=== PATIENT | female | born 1950 | race Caucasian/White ===

== ENCOUNTER 2017-12-29 18:36 | Emergency (ER) | payer MEDICARE, MEDICAID, SELFPAY ==
[2017-12-29 18:39] VITALS: BP 135/71; PULSE 85; RESP 16; TEMP 37.2; O2SAT 94; BMI 27.4
--- NOTE | 2017-12-29 19:10 | RAD_ITS ---
STUDY: X-RAY - RIGHT KNEE REASON FOR EXAM: Female, 67 years old. Pain. Fall. TECHNIQUE: 2 view(s) of the knee. COMPARISON: None. FINDINGS: Comminuted moderately distracted fractures through the mid patella. No other fractures or dislocations. Anterior soft tissue swelling and probable small effusion. RAD/Knee 1 or 2 Views IMPRESSION: Limited 2 view study of the right knee shows a comminuted distracted fracture through the mid patella. Electronically Signed: Tariq Burk MD at 19:36 EDT , Service support ,
--- NOTE | 2017-12-29 19:38 | ED.VISSUMM ---
- ER Visit Summary Date of Service: 12/29/17 Chief Complaint: Right knee injury History of Present Illness: The patient is a 67 F resents to the emergency department with injury to the right knee. Patient states that she was walking her room today. She slipped on a mattress cover. She fell landing directly on her right knee on hard ground. She was unable to stand and bear weight. Her neighbor helped her and actually brought her here. The patient does have a history of diabetes and neuropathy. She does not use a cane or walker. She did not strike her head. She denies any other injury. Physical Examination: Relatively unremarkable. Patient does have hematoma of the right knee. She is unable to extend. The skin is intact. Her pulses are normal. No cords. No evidence of other injury. Test Results: [] Emergency Department Course and Treatment: Tong films were obtained of the knee. The patient does have a comminuted patellar fracture. It is closed. The patient was placed in a knee immobilizer. She will be given crutches and be nonweightbearing. I did discuss the patient with Dr. Webster for follow-up. She will be seen in the office this week. The patient will be given a short course of analgesics. She will follow-up with orthopedics as she is likely going to need operative fixation. The patient is comfortable with this plan of care. Treatment Plan: [] Disposition: Discharge Impression: 1. Closed right comminuted patellar fracture This note was generated with Get-n-[employer] dictation software. It may contain incorrect words, spelling, and punctuation that were not noted in review of the chart prior to signing ED Disposition - Plan for ED Patient: Chief Complaint: Lower Extremity Injury Instructions: ED Fx Patella Prescriptions: Hydrocodone Bitart/Apap 5-325 [[place] 5/325] 1 tab PO Q4H PRN PRN 3 Days #12 tab PRN Reason: Pain Referrals: Jose A Webster DO [STAFF PHYSICIAN] -
--- NOTE | 2017-12-29 19:41 | ED.DCSUM_ITS ---
- ER Visit Summary Date of Service: 12/29/17 Chief Complaint: Right knee injury History of Present Illness: The patient is a 67 F resents to the emergency department with injury to the right knee. Patient states that she was walking her room today. She slipped on a mattress cover. She fell landing directly on her right knee on hard ground. She was unable to stand and bear weight. Her neighbor helped her and actually brought her here. The patient does have a history of diabetes and neuropathy. She does not use a cane or walker. She did not strike her head. She denies any other injury. Physical Examination: Relatively unremarkable. Patient does have hematoma of the right knee. She is unable to extend. The skin is intact. Her pulses are normal. No cords. No evidence of other injury. Test Results: [] Emergency Department Course and Treatment: Tong films were obtained of the knee. The patient does have a comminuted patellar fracture. It is closed. The patient was placed in a knee immobilizer. She will be given crutches and be nonweightbearing. I did discuss the patient with Dr. Webster for follow-up. She will be seen in the office this week. The patient will be given a short course of analgesics. She will follow-up with orthopedics as she is likely going to need operative fixation. The patient is comfortable with this plan of care. Treatment Plan: [] Disposition: Discharge Impression: 1. Closed right comminuted patellar fracture This note was generated with UT[employer] dictation software. It may contain incorrect words, spelling, and punctuation that were not noted in review of the chart prior to signing ED Disposition - Plan for ED Patient: Chief Complaint: Lower Extremity Injury Instructions: ED Fx Patella Prescriptions: Hydrocodone Bitart/Apap 5-325 [[place] 5/325] 1 tab PO Q4H PRN PRN 3 Days #12 tab PRN Reason: Pain Referrals: Jose A Webster DO [STAFF PHYSICIAN] -
[2017-12-29] MEDS: HYDROcodone Bitartrate/Apap 5/325 Tablet PO (20:12)
--- NOTE | 2017-12-29 20:14 | ED.RN ---
attempted to contact [facility] for patient to receive crutches. at this time per patient she is not able to use crutches period. Will speak with Dr. Mendieta at this time
[2017-12-29 21:05] VITALS: PULSE 93; RESP 20; O2SAT 91
== END 2017-12-29 21:06 | disposition home or self-care (01) ==
LOC: ED 19:38
PROVIDERS: Emergency Provider Emergency Medicine; Family Provider Internal Medicine; PCP Internal Medicine
DX: S82.041A Displaced comminuted fracture of right patella, initial encounter for closed fracture (principal); E11.40 Type 2 diabetes mellitus with diabetic neuropathy, unspecified; E78.00 Pure hypercholesterolemia, unspecified; W01.0XXA Fall on same level from slipping, tripping and stumbling without subsequent striking against object, initial encounter; Y93.01 Activity, walking, marching and hiking; Y92.9 Unspecified place or not applicable; Z79.84 Long term (current) use of oral hypoglycemic drugs; Z79.899 Other long term (current) drug therapy; Z72.0 Tobacco use
CPT/HCPCS: 73560; 99283

== ENCOUNTER 2018-01-06 11:58 | Observation (INO) | payer MEDICARE, MEDICAID, SELFPAY ==
[2018-01-06] VITALS (11 sets, daily range): BP systolic 110–164; BP diastolic 61–89; PULSE 64–92; RESP 16–18; TEMP 36.6–37.1; O2SAT 88–96; BMI 28.3
--- NOTE | 2018-01-06 09:58 | EKG12_ITS ---
Test Reason : PREOP Blood Pressure : / mmHG Vent. Rate : 081 BPM Atrial Rate : 081 BPM P-R Int : 150 ms QRS Dur : 104 ms QT Int : 404 ms P-R-T Axes : 077 107 062 degrees QTc Int : 469 ms Normal sinus rhythm Normal ECG When compared with ECG of 07-OCT-2007 10:47, No significant change was found Confirmed by SAMANTHA MCGARRY, LATOYA ([id number]), editor magazine ROSHAN COLLAZO ([id number]) on 01/09/2018 1:06:19 PM Referred By: Jose A Webster Confirmed By:LATOYA SINGH MD
[2018-01-06 10:26] LABS: Hematocrit 39.2 % (37-47); Hemoglobin 13.2 g/dl (12.0-15.0); Mean Corp Hgb Conc 33.7 g/gl (32-36); Mean Corpuscular Hgb 31.1 pg (27.0-32.0); Mean Corpuscular Volume 92.5 fL (81-99); Mean Platelet Vol. 10.4 fl (6.2-12.0); Platelet Count 220 K/mm3 (150-450); RBC Distribution Width CV 12.6 % (11.6-14.6); RBC Distribution Width SD 41.6 fl (35.1-43.9); Red Blood Count 4.24 M/mm3 (4.2-5.4); Scan Indicated on CBC? Y/N NO; White Blood Count 5.7 K/mm3 (4.4-11.0)
[2018-01-06 10:36] LABS: Bedside Glucose 139 mg/dL (70-110)
[2018-01-06 10:42] LABS: Anion Gap 5 (5-15); BUN 19 mg/dL (7-18); BUN/Creat Ratio 29.9 RATIO (10-20); Calcium,Total 9.1 mg/dL (8.5-10.1); Chloride 103 mmol/L (98-107); Creatinine, Serum 0.64 mg/dL (0.55-1.02); EST Glomerular Filtration Rate 100 mL/min (>60); Est Glom Filt Rate - Afr Amer 120 mL/min (>60); Estimated Creatinine Clearance 75.68 ml/min; Glucose 129 mg/dL (74-106); Hemoglobin A1c 6.9 % (4.2-6.3); Potassium 3.8 mmol/L (3.5-5.1); Sodium Level 139 mmol/L (136-145)
--- NOTE | 2018-01-06 11:35 | RAD_ITS ---
STUDY: X-RAY - RIGHT KNEE REASON FOR EXAM: Female, 67 years old. ORIF of the patellar fracture. TECHNIQUE: 5 cone-down intraoperative view(s) of the knee. COMPARISON: None. FINDINGS: ORIF of the comminuted patellar fracture. There is good alignment. RAD/Knee 1 or 2 Views IMPRESSION: Status post ORIF of the comminuted patellar fracture. Electronically Signed: Rohit Montes MD at 11:12 EDT Tel [phone], Service support ,
[2018-01-06] MEDS: Cefazolin 2 GM in 0.9% Normal Saline 100 ML IV (12:23)
--- NOTE | 2018-01-06 13:41 | OP.PN_ITS ---
Immediate Post-Op Note Date of Procedure: 01/06/18 Primary Surgeon/Physician: Jose A Webster DO drier and evaporator operator: Daniele Anne Pre-Operative Diagnosis: Right closed comminuted patella fracture Post-Operative Diagnosis: Same as above Surgery/Procedure Performed:: Right open reduction internal fixation of the patella Description of Surgical Findings:: See dictation Estimated Blood Loss: 20 Specimen's removed: None Type of Anesthesia:: General, General/Regional ASA Class: ASA2 Mod Systematic Disease - Admit VTE Documentation VTE Present on Admission: No VTE Mechan Device Prophylaxis: SCD's, Knee High JOSE Hose VTE Pharm Prophylaxis ordered?: Yes
--- NOTE | 2018-01-06 13:47 | OP.PCM_ITS ---
Report of Operation Date of Procedure: 01/06/18 Pre-Operative Diagnosis: Right closed comminuted patella fracture Post-Operative Diagnosis: Same as above Surgery/Procedure Performed:: Right open reduction internal fixation of the patella Description of Surgical Findings:: 67-year-old female who sustained a fall directly onto her right patella resulting in a comminuted right patella fracture. Patient requested operative intervention. Patient was met in the holding area where the right lower extremity was marked and identified by the with surgeon. Patient was taken the operating room in satisfactory condition with somewhat to place to identify patient up procedure and limb. Patient received 2 g of Ancef. She underwent a successful intubation and then had a well-placed tourniquet to the right proximal thigh. She was then prepped and draped in usual fashion. Right lower extremity was elevated Esmarch used for exsanguination and tourniquet was increased to 250 mmHg for roughly 50 minutes. Patient had a standard midline incision made 2 fingerbreadths above the patella down to the tibial tubercle with sharp dissection down to soft tissue and Bovie cautery 20 bleeding. The peritenon was longitudinally divided and the fracture sites were identified. The most transverse of the fracture site was gently mobilized maintain the retinacular tissue to the superior aspects. We then were able to gently tamp down the central portion that appeared to be impacted from her initial injury pattern. C-arm visualization showed improved overall articular formation with gentle clamp reduction. In the face of the retinacular tissues being maintained and the reduction on AP and lateral planes I elected to place a circumferential wire underneath the quad tendon and underneath the patellar tendon and then reviewed the radiographs. We then gently tightened that using standard AO technique as a cerclage cerclage wire. This maintained overall positioning on the lateral view and AP views. At that point time I then placed to 6 2 K wires into the bulk of the fracture fragments with good cortical feel both proximally and distally. At that point time I then ran a [id number] 2 mm Arthrex fiber tape in a [id number] fashion around the parallel wire formation. We then tightened using standard technique. And then performed repeat radiographs. Again we had maintained our overall reduction in overall articular margin fracture alignment appeared to be acceptable for her degree of injury. I then cycled the knee through gentle range of motion to see if we had any gap formation could not appreciate any diastases. At that point time the K wires were then longitudinally cut both proximally and distally and folded laterally and gently impacted into the patella for additional stability. Again confirmation of positioning was confirmed with C-arm visualization. At that point time the wound was copiously irrigated remnant retinacular tissue was reapproximated with 0 Vicryl skin was reapproximated with 2-0 Vicryl and then staple technique to the skin. Patient was then dressed with Xeroform 4 x 4's ABDs and Medipore tape and placed into a hinged knee brace locked in extension. Patient will be admitted for 24 hours of IV antibiotics overnight and she will be weightbearing as tolerated in full extension but wear that brace for the next 6-8 weeks. I will start gentle range of motion of roughly 0-30? in 2 weeks and advance by 20-30? for each additional week until the six-week mary. Patient will have repeat radiographs in 2 weeks. I was scrubbed and available time during our procedure. We had no drains or complications. Implants included 2 1.2 mm K wires 16-gauge cerclage wire and 1 2 mm fiber tape from Arthrex. form maker plaster: Daniele Anne Type of Anesthesia:: General, General/Regional Specimen's removed: None Estimated Blood Loss (mL): 20 Grafts/Implants Used: See dictation - Complications None - Admit VTE Documentation VTE Present on Admission: No VTE Mechan Device Prophylaxis: SCD's, Knee High JOSE Hose VTE Pharm Prophylaxis ordered?: Yes
--- NOTE | 2018-01-06 14:10 | RAD_ITS ---
STUDY: X-RAY - RIGHT KNEE REASON FOR EXAM: Female, 67 years old. ORIF of the patellar fracture. TECHNIQUE: 2 view(s) of the knee. COMPARISON: Comparison is made with prior examination of December 29, 2017. FINDINGS: The patient is status post open reduction internal fixation of the comminuted patellar fracture. There is good alignment. Postoperative soft tissue changes. RAD/Knee 1 or 2 Views IMPRESSION: Status post ORIF of the comminuted patellar fracture. There is good alignment. Postoperative soft tissue changes. Electronically Signed: Rohit Montes MD at 15:04 EDT Tel [phone], Service support ,
[2018-01-06 14:46] LABS: Bedside Glucose 162 mg/dL (70-110)
[2018-01-06] MEDS: Lactated Ringers 1,000 ML 85 ML IV (17:16)
[2018-01-06] MEDS: HYDROcodone Bitartrate/Apap 5/325 Tablet PO (17:18)
[2018-01-06] MEDS: metFORMIN HCl 1,000 MG Tablet 1000 MG PO (17:18)
[2018-01-06] MEDS: Gabapentin 300 MG Capsule PO (17:19)
[2018-01-06] MEDS: Cefazolin 1 GM/50 ML BAG IV (21:38)
[2018-01-06] MEDS: Atorvastatin Calcium 10 MG Tablet PO (21:38)
[2018-01-06] MEDS: Aspirin 325 MG Tablet PO (21:38)
[2018-01-07] MEDS: HYDROcodone Bitartrate/Apap 5/325 Tablet PO ×2 (00:51→10:33)
[2018-01-07 03:29] VITALS: BP 138/75; PULSE 83; RESP 16; TEMP 36.9; O2SAT 92
[2018-01-07] MEDS: Cefazolin 1 GM/50 ML BAG IV (03:36)
[2018-01-07] MEDS: Lactated Ringers 1,000 ML 85 ML IV (05:54)
--- NOTE | 2018-01-07 06:27 | NURSING ---
inc of a large amt of urine, assisted up to the bsc, voided. completed linen changed done, johan care and bath given. diaper applied
--- NOTE | 2018-01-07 07:41 | PCM.DC.ORTHO ---
Discharge Diet: No Restrictions Discharge Activity: May not drive while taking narcotic pain medications., May Shower, Use Walker, Use Crutches May shower in (days): 1 Ice area for (Minutes): 20 Weight Bearing Status: Partial weight bearing Additional Activity Instructions:: Brace locked in extension ?2 weeks. May remove to shower. Partial weightbearing. Call your doctor if your incision/area has: Continuous Slow Oozing, Sudden Increased Bleeding, Increased Pain/ Swelling, Increased Redness, Foul Smelling Discharge, Swelling at the incision site Call your doctor if you observe: Fever of 101 or Higher, Coldness, Increased Pain, Numbness or Tingling, Change in Color, Inability to urinate, Inability to have a bowel movement, Using more than one pad per hour, Shortness of breath, Dizziness, Fainting spells, Swelling in the ankles, Chest pain, Prolonged hiccoughing, Increased palpitations (irregular heartbeat), Calf discomfort, Uncontrolled pain Suture Line Care: Avoid Pulling/Pushing, Avoid Pinching/Bending Change Dressing in (Days):: 1 Remove Dressing in (days):: 1 Cleanse incision/area with: Soap & Water Additional Dressing/Incision Instructions:: Replace dressing after shower. Keep George wrap on to prevent you from touching the wound. Wash hands prior to touching wound. Allergies/Adverse Reactions: Allergies No Known Allergies Allergy (Verified 01/01/18 08:33) Medications to take at Discharge Citalopram [Celexa] 40 mg PO DAILY 02/26/15 Lansoprazole [Prevacid] 20 mg PO DAILY 02/26/15 Lovastatin [Mevacor] 40 mg PO DAILY 02/26/15 Metformin HCl [Glucophage] 1,000 mg PO BID 02/26/15 Gabapentin [Neurontin] 300 mg PO TID 07/17/17 Hydrocodone Bitart/Apap 5-325 [[place] 5/325] 1 tab PO Q4H PRN PRN 3 Days #12 tab 12/29/17 Aspirin E.C. [Ecotrin] 325 mg PO BID #30 tab 01/07/18 Docusate Sodium [Colace] 100 mg PO BID PRN PRN #10 cap 01/07/18 Oxycodone HCl/Acetaminophen [Percocet 5/325] 1 - 2 tablet PO Q6H PRN PRN #60 tablet 01/07/18 proMETHazine tablet [Phenergan] 25 mg PO Q4H PRN PRN #10 tab 01/07/18 The following prescriptions were given: proMETHazine tablet [Phenergan] 25 mg PO Q4H PRN PRN #10 tab PRN Reason: Nausea Oxycodone HCl/Acetaminophen [Percocet 5/325] 1 - 2 tablet PO Q6H PRN PRN #60 tablet PRN Reason: Pain Docusate Sodium [Colace] 100 mg PO BID PRN PRN #10 cap PRN Reason: Constipation Aspirin E.C. [Ecotrin] 325 mg PO BID #30 tab Primary Care Physician: Roxi Ritter MD [Primary Care Provider] - Please Follow Up With: Jose A Webster DO When: call [facility] for appt for 2 weeks Proposed Discharge Date: 01/07/18
--- NOTE | 2018-01-07 07:54 | PCM.PN.ORT ---
Subjective: Some day 1 status post right open reduction internal fixation for a comminuted patella fracture. No major issues overnight. Patient states that she is ready to go home. Denies any fevers chills nausea vomiting chest pain or shortness of breath. - Physical Exam General: Alert, Oriented x3, Cooperative, No apparent distress Musculoskeletal: - - Dressing and brace in place. No expanding hematoma. No calf pain negative Homans. EHL anterior gastrocsoleus peroneals quads hamstrings 5 out of 5. X-rays reviewed show hardware well seated well-placed. Lab values remain stable. Vital Signs Temp Pulse Resp BP Pulse Ox 98.4 F 83 16 138/75 H 92 01/07/18 03:29 01/07/18 03:29 01/07/18 03:29 01/07/18 03:29 01/07/18 03:29 Oxygen Flow Rate (L/min) 2 Oxygen Delivery Method Nasal Cannula Weight: 164 lb 14.492 oz Body Mass Index (BMI) 28.3 Finger Stick Blood Glucose 162 Intake and Output for Last 24 Hours 01/05/18 01/06/18 01/07/18 23:59 23:59 23:59 Intake Total 1867 / 1867 1358 / 1358 Output Total 250 / 250 Balance 1617 / 1617 1358 / 1358 Laboratory Tests Past 24 Hrs 01/06/18 01/06/18 01/06/18 10:15 10:15 10:15 WBC 5.7 RBC 4.24 Hgb 13.2 Hct 39.2 MCV 92.5 MCH 31.1 MCHC 33.7 RDW 12.6 RDW Differential 41.6 Plt Count 220 MPV 10.4 Sodium 139 Potassium 3.8 Chloride 103 Carbon Dioxide 31.0 Anion Gap 5 BUN 19 H Creatinine 0.64 Estim Creat Clear Calc 75.68 Est GFR (MDRD) Af Amer 120 Est GFR (MDRD) Non-Af 100 BUN/Creatinine Ratio 29.9 H Glucose 129 H Hemoglobin A1c 6.9 H Calcium 9.1 POC Glucose 01/06/18 01/06/18 14:40 10:25 POC Glucose 162 H 139 H Medical Necessity - Tobacco Use Smoking Status: Current every day smoker Assessment/Plan Assessment: After orthopedics status post right patella open reduction internal fixation. Patient doing well. Plan: At this point time we will discharge patient home when ride is available. Medications have been sent electronically. Patient will use aspirin for DVT prophylaxis and is currently on Prevacid for GI prophylaxis. If the patient becomes symptomatic she can convert to just one aspirin per day. Brace will be maintained in full extension ?2 weeks. Once I see her we will start gentle range of motion initially 30? and then start advancing down from there. Any major issues please contact me.
[2018-01-07] MEDS: Aspirin 325 MG Tablet PO (08:22)
[2018-01-07] MEDS: Gabapentin 300 MG Capsule PO ×2 (08:23→12:51)
[2018-01-07] MEDS: metFORMIN HCl 1,000 MG Tablet 1000 MG PO (08:23)
[2018-01-07 09:00] VITALS: RESP 18
[2018-01-07 09:32] VITALS: BP 139/65; PULSE 85; RESP 18; TEMP 36.9; O2SAT 94
[2018-01-07] MEDS: Pantoprazole Sodium 40 MG Tablet PO (10:34)
[2018-01-07] MEDS: Citalopram 40 MG TABLET PO (10:34)
--- NOTE | 2018-01-07 11:38 | CASEMGMT ---
Social Work Note Pt has decided that she would like to go to inpatient rehab at [facility] at discharge. GIBSON called Alyssa and let her know that pt is currently in observation, she has Medicare and she came in with status post right patella open reduction internal fixation. GIBSON asked Alyssa if she would be able to accept pt today and Alyssa states that she is able to. GIBSON placed call to Dr. Webster stating that pt has decided to go to inpatient rehab at [facility] and that she can go today. GIBSON informed Dr. Webster that he will need to sign medication list and scripts for pt. This SW left Dr. Webster her direct number so he can call with any questions. Vp Transportation will continue to follow. 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
--- NOTE | 2018-01-07 12:51 | CASEMGMT ---
Social Work Note Dr. Webster came to floor to sign required medication list and scripts for inpatient rehab. Pt is ready to discharge to inpatient rehab today. SW informed RN Linnea and Charge Nurse Margie of this. Copies of pt's medication list, scripts, and discharge summary on chart and originals in folder to be taken to inpatient rehab. 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
[2018-01-07 13:18] VITALS: BP 150/77; PULSE 85; RESP 18; TEMP 36.8; O2SAT 93
== END 2018-01-07 13:35 ==
LOC: MS3 13:17
PROVIDERS: Specialist; Admitting Provider Orthopaedic Surgery; Family Provider Internal Medicine; PCP Internal Medicine; Visit Provider Orthopaedic Surgery
PROC: (CPT 27524; principal; 2018-01-06 11:20)
DX: S82.041A Displaced comminuted fracture of right patella, initial encounter for closed fracture (principal); W19.XXXA Unspecified fall, initial encounter; Y93.9 Activity, unspecified; Y92.9 Unspecified place or not applicable; Z79.899 Other long term (current) drug therapy; Z79.84 Long term (current) use of oral hypoglycemic drugs; F17.200 Nicotine dependence, unspecified, uncomplicated; F32.9 Major depressive disorder, single episode, unspecified; E11.9 Type 2 diabetes mellitus without complications; K21.9 Gastro-esophageal reflux disease without esophagitis
CPT/HCPCS: 27524; 73560; 76000; 80048; 82962; 83036; 85027; 93005; 96361; 96365; 96366; 97162; 97165; 99218; J7120; G0378; J2405

== ENCOUNTER 2018-01-07 13:50 | Inpatient (IN) | payer MEDICARE, MEDICAID, SELFPAY ==
[2018-01-07 14:00] VITALS: BP 154/71; PULSE 85; RESP 18; TEMP 36.7; O2SAT 91; BMI 28.2
--- NOTE | 2018-01-07 14:38 | PCM.HP.COS ---
History of Present Illness Date of Admission: 01/07/18 Chief Complaint: Right Pattellar ORIF The patient is a 67-year-old right handed female, admitted to rehab unit for rehabilitation, after sustaining a mechanical fall directly onto her right patella resulting in a comminuted right patella fracture. She has a pass medical history of non insulin dependent diabetes (NIDDM), HLD, Chronic Pain sees a shading painter Dr. Ivey, Depression and GERD. She walks with a cane 2/2 chronic left hip pain. She lives with her son and his family, in a one story home with one large step to get into the home. She was previously completely functionally independent and is admitted to the rehab unit in order to restore her previous level of functional independence. Past Medical History Allergies No Known Allergies Allergy (Verified 01/01/18 08:33) Home Medications: Ambulatory Orders Medication Instructions Recorded Citalopram [Celexa] 40 mg PO DAILY 02/26/15 Lansoprazole [Prevacid] 20 mg PO DAILY 02/26/15 Lovastatin [Mevacor] 40 mg PO DAILY 02/26/15 Metformin HCl [Glucophage] 1,000 mg PO BID 02/26/15 Gabapentin [Neurontin] 300 mg PO TID 07/17/17 Aspirin E.C. [Ecotrin] 325 mg PO BID 01/07/18 Docusate Sodium [Colace] 100 mg PO BID PRN PRN #10 cap 01/07/18 Famotidine [Pepcid] 40 mg PO DAILY 01/07/18 Oxycodone HCl/Acetaminophen 1 - 2 tab PO Q6H PRN PRN #60 tab 01/07/18 [Percocet 5/325] Surgical History: cholecystectomy, - - Foot surgery - bilateral Psychiatric History: Depression Lives: With Family Smoking Status: Light Smoker (<10/day) Tobacco Use: Cigarettes Alcohol: Occasional Drugs: None Review of Systems Constitutional: Denies: Chills, Fever, Weight Change HEENT: Denies: Head Aches, Sinus Congestion, Sinus Drainage Cardiovascular: Denies: Chest Pain, Palpitations Respiratory: Denies: Cough, Shortness of breath at rest, Sputum production Gastrointestinal: Denies: Abdominal Pain, Nausea, Vomiting Genitourinary: Denies: Dysuria Musculoskeletal: Denies: Joint Pain, Joint Tenderness Skin: Denies: Rash, Wounds Neurological: Denies: Numbness, Tingling, Focal weakness Psychiatric: Denies: Anxiety, Depression, Homicidal Ideations, Suicidal Ideations Hematologic/ Lymphatic: Denies: Easy Bruising, Easy Bleeding VTE Information - Inpt Only VTE Present on Admission: No VTE Mechan Device Prophylaxis: SCD's - left leg, Knee High LC Hose - left leg VTE Pharm Prophylaxis ordered?: Yes - Physical Exam General: Alert, Oriented x3, Cooperative HEENT: Atraumatic, PERRLA, EOMI, Normocephalic Neck: Supple, No JVD, Negative Carotid Bruits Lungs: Clear to auscultation, Normal air movement Cardiovascular: Regular rate, No murmurs Abdomen: Bowel Sounds Present, Soft, Non Tender Extremities: No edema, Capillary Refill Less than 3 Seconds Skin: No rashes, No breakdown Musculoskeletal: No Tenderness to Palpation of Joints or Extremities Neurological: Cranial nerves II-XII grossly intact Psych/Mental Status: Normal Affect, Appropriate Finger Stick Blood Glucose 162 Active Medications Aspirin (Ecotrin) 325 mg PO BID [facility] Stop: 01/22/18 10:01 Citalopram Hydrobromide (Celexa) 40 mg PO DAILY [facility] Docusate Sodium (Colace) 100 mg PO BID PRN PRN PRN Reason: Constipation Gabapentin (Neurontin) 300 mg PO TID [facility] Lovastatin (Mevacor) 40 mg PO DAILY [facility] Metformin HCl (Glucophage) 1,000 mg PO BID [facility] Non-Formulary Medication (Famotidine [Pepcid]) 40 mg PO DAILY [facility] Non-Formulary Medication (Lansoprazole) 20 mg PO DAILY [facility] Non-Formulary Medication (Oxycodone Hcl/Acetaminophen) 1 - 2 tab PO Q6H PRN PRN PRN Reason: PAIN Assessment/Plan Impression: Debility status post ORIF of the right knee. complicated by history of Non insulin dependent diabetes, hyperlipidemia, depression, and current PPD smoker. Goal of therapy is taoist of prior level of functional independence. Plan: - Physical therapy for gait and balance - Occupational Therapy for ADLs - As needed analgesics - Bowel protocol - Depression -> continue home dose of Celexa - Hyperlipidemia -> continue home dose of Lipitor - DVT prophylaxis: ASA 325mg x 30 doses, SCD, and Lc hoses - Uncontrolled surgical pain - Fentanyl patch 25mg - NIDDM -> Fasting BG daily - GERD -> continue home medication - Hx chronic pain -> continue GPN 300mg TID, managed by Pain management, Dr. Ivey - Right knee ORIF -> Dressing to site is C/D/I, brace in place will Maintain brace in full extension x 2 weeks, may remove to shower only, will follow up with Dr. Webster.
--- NOTE | 2018-01-07 14:41 | HP.PCM.COS_ITS ---
History of Present Illness Date of Admission: 01/07/18 Chief Complaint: Right Pattellar ORIF The patient is a 67-year-old right handed female, admitted to rehab unit for rehabilitation, after sustaining a mechanical fall directly onto her right patella resulting in a comminuted right patella fracture. She has a pass medical history of non insulin dependent diabetes (NIDDM), HLD, Chronic Pain sees a touch up painter Dr. Ivey, Depression and GERD. She walks with a cane 2/2 chronic left hip pain. She lives with her son and his family, in a one story home with one large step to get into the home. She was previously completely functionally independent and is admitted to the rehab unit in order to restore her previous level of functional independence. Past Medical History Allergies No Known Allergies Allergy (Verified 01/01/18 08:33) Home Medications: Ambulatory Orders Medication Instructions Recorded Citalopram [Celexa] 40 mg PO DAILY 02/26/15 Lansoprazole [Prevacid] 20 mg PO DAILY 02/26/15 Lovastatin [Mevacor] 40 mg PO DAILY 02/26/15 Metformin HCl [Glucophage] 1,000 mg PO BID 02/26/15 Gabapentin [Neurontin] 300 mg PO TID 07/17/17 Aspirin E.C. [Ecotrin] 325 mg PO BID 01/07/18 Docusate Sodium [Colace] 100 mg PO BID PRN PRN #10 cap 01/07/18 Famotidine [Pepcid] 40 mg PO DAILY 01/07/18 Oxycodone HCl/Acetaminophen 1 - 2 tab PO Q6H PRN PRN #60 tab 01/07/18 [Percocet 5/325] Surgical History: cholecystectomy, - - Foot surgery - bilateral Psychiatric History: Depression Lives: With Family Smoking Status: Light Smoker (<10/day) Tobacco Use: Cigarettes Alcohol: Occasional Drugs: None Review of Systems Constitutional: Denies: Chills, Fever, Weight Change HEENT: Denies: Head Aches, Sinus Congestion, Sinus Drainage Cardiovascular: Denies: Chest Pain, Palpitations Respiratory: Denies: Cough, Shortness of breath at rest, Sputum production Gastrointestinal: Denies: Abdominal Pain, Nausea, Vomiting Genitourinary: Denies: Dysuria Musculoskeletal: Denies: Joint Pain, Joint Tenderness Skin: Denies: Rash, Wounds Neurological: Denies: Numbness, Tingling, Focal weakness Psychiatric: Denies: Anxiety, Depression, Homicidal Ideations, Suicidal Ideations Hematologic/ Lymphatic: Denies: Easy Bruising, Easy Bleeding VTE Information - Inpt Only VTE Present on Admission: No VTE Mechan Device Prophylaxis: SCD's - left leg, Knee High LC Hose - left leg VTE Pharm Prophylaxis ordered?: Yes - Physical Exam General: Alert, Oriented x3, Cooperative HEENT: Atraumatic, PERRLA, EOMI, Normocephalic Neck: Supple, No JVD, Negative Carotid Bruits Lungs: Clear to auscultation, Normal air movement Cardiovascular: Regular rate, No murmurs Abdomen: Bowel Sounds Present, Soft, Non Tender Extremities: No edema, Capillary Refill Less than 3 Seconds Skin: No rashes, No breakdown Musculoskeletal: No Tenderness to Palpation of Joints or Extremities Neurological: Cranial nerves II-XII grossly intact Psych/Mental Status: Normal Affect, Appropriate Finger Stick Blood Glucose 162 Active Medications Aspirin (Ecotrin) 325 mg PO BID [facility] Stop: 01/22/18 10:01 Citalopram Hydrobromide (Celexa) 40 mg PO DAILY [facility] Docusate Sodium (Colace) 100 mg PO BID PRN PRN PRN Reason: Constipation Gabapentin (Neurontin) 300 mg PO TID [facility] Lovastatin (Mevacor) 40 mg PO DAILY [facility] Metformin HCl (Glucophage) 1,000 mg PO BID [facility] Non-Formulary Medication (Famotidine [Pepcid]) 40 mg PO DAILY [facility] Non-Formulary Medication (Lansoprazole) 20 mg PO DAILY [facility] Non-Formulary Medication (Oxycodone Hcl/Acetaminophen) 1 - 2 tab PO Q6H PRN PRN PRN Reason: PAIN Assessment/Plan Impression: Debility status post ORIF of the right knee. complicated by history of Non insulin dependent diabetes, hyperlipidemia, depression, and current PPD smoker. Goal of therapy is gnosticism of prior level of functional independence. Plan: - Physical therapy for gait and balance - Occupational Therapy for ADLs - As needed analgesics - Bowel protocol - Depression -> continue home dose of Celexa - Hyperlipidemia -> continue home dose of Lipitor - DVT prophylaxis: ASA 325mg x 30 doses, SCD, and Lc hoses - Uncontrolled surgical pain - Fentanyl patch 25mg - NIDDM -> Fasting BG daily - GERD -> continue home medication - Hx chronic pain -> continue GPN 300mg TID, managed by Pain management, Dr. Ivey - Right knee ORIF -> Dressing to site is C/D/I, brace in place will Maintain brace in full extension x 2 weeks, may remove to shower only, will follow up with Dr. Webster.
--- NOTE | 2018-01-07 15:04 | NURSING ---
Patient aware she is a fall risk and must ask for staff assist.
[2018-01-07 15:50] VITALS: O2SAT 93
[2018-01-07] MEDS: Gabapentin 300 MG Capsule PO (17:05)
[2018-01-07] MEDS: Aspirin E.C. 325 MG Tablet PO (17:05)
[2018-01-07] MEDS: fentaNYL 25 MCG Patch TRANSDERM. (17:05)
[2018-01-07] MEDS: oxyCODONE 5 MG Tablet PO (18:27)
--- NOTE | 2018-01-07 19:00 | NURSING ---
Shift Clinical Findings complete but buttocks not assessed and oncoming nurse aware to complete skin assessment.
[2018-01-07 19:38] VITALS: BP 153/87; PULSE 91; RESP 12; TEMP 36.8; O2SAT 86
[2018-01-07 19:42] VITALS: PULSE 90; O2SAT 92
[2018-01-07 20:30] VITALS: O2SAT 96
[2018-01-07 20:42] VITALS: O2SAT 95
[2018-01-07] MEDS: Atorvastatin Calcium 10 MG Tablet PO (20:59)
[2018-01-07] MEDS: Senna/Docusate Sodium 1 Tablet 2 TABLET PO (20:59)
[2018-01-08] MEDS: oxyCODONE 5 MG Tablet PO ×2 (05:01→17:39)
[2018-01-08 06:03] LABS: Hematocrit 36.2 % (37-47); Hemoglobin 12.3 g/dl (12.0-15.0); Mean Corpuscular Hgb 31.1 pg (27.0-32.0); Mean Corpuscular Volume 91.6 fL (81-99); Mean Platelet Vol. 10.7 fl (6.2-12.0); Platelet Count 207 K/mm3 (150-450); RBC Distribution Width CV 12.3 % (11.6-14.6); RBC Distribution Width SD 40.5 fl (35.1-43.9); Red Blood Count 3.95 M/mm3 (4.2-5.4); White Blood Count 8.3 K/mm3 (4.4-11.0)
[2018-01-08 06:06] LABS: Scan Indicated on CBC? Y/N NO
[2018-01-08 06:28] LABS: ALB/GLOB Ratio 0.8 RATIO (0.9-2.4); AST(SGOT) 15 U/L (15-37); Alanine Aminotransfer ALT/SGPT 25 U/L (13-56); Alkaline Phosphatase 61 U/L (45-117); Anion Gap 8 (5-15); BUN 12 mg/dL (7-18); BUN/Creat Ratio 22.9 RATIO (10-20); Calcium,Total 8.8 mg/dL (8.5-10.1); Chloride 99 mmol/L (98-107); Creatinine, Serum 0.52 mg/dL (0.55-1.02); EST Glomerular Filtration Rate 124 mL/min (>60); Est Glom Filt Rate - Afr Amer 150 mL/min (>60); Estimated Creatinine Clearance 93.14 ml/min; Globulin 3.6 g/dL (2.2-4.2); Glucose 155 mg/dL (74-106); Magnesium 1.8 mg/dL (1.6-2.6); Phosphorus 2.7 mg/dL (2.5-4.9); Potassium 3.7 mmol/L (3.5-5.1); Protein, Total 6.6 g/dL (6.4-8.2); Sodium Level 136 mmol/L (136-145)
[2018-01-08 06:30] LABS: Bedside Glucose 175 mg/dL (70-110)
[2018-01-08] MEDS: Gabapentin 300 MG Capsule PO ×3 (07:56→17:36)
[2018-01-08] MEDS: Citalopram 40 MG TABLET PO (07:56)
[2018-01-08] MEDS: Aspirin E.C. 325 MG Tablet PO ×2 (07:56→17:36)
[2018-01-08] MEDS: Senna/Docusate Sodium 1 Tablet 2 TABLET PO ×2 (07:56→22:39)
[2018-01-08] MEDS: Famotidine 20 MG Tablet 40 MG PO (07:56)
[2018-01-08] MEDS: Pantoprazole Sodium 20 MG Tablet PO (07:57)
[2018-01-08 07:58] VITALS: BP 129/69; PULSE 96; RESP 18; TEMP 36.6; O2SAT 93
[2018-01-08] MEDS: Acetaminophen 325 MG Tablet 650 MG PO (08:04)
[2018-01-08 10:00] VITALS: O2SAT 93
[2018-01-08 10:46] LABS: Bedside Glucose 182 mg/dL (70-110)
[2018-01-08 11:24] VITALS: O2SAT 96
--- NOTE | 2018-01-08 13:37 | PCM.PN.NEU ---
Subjective: Patient seen and examined. No new complaints. Tolerating therapy. Pain well controlled with current pain medication. Incision dressing C/D/I, has leg brace in place locked in extension. No issues with GI/. - Physical Exam General: Alert, Oriented x3, Cooperative HEENT: Atraumatic, PERRLA, EOMI, Normocephalic Neck: Supple, No JVD, Negative Carotid Bruits Lungs: Clear to auscultation, Normal air movement Cardiovascular: Regular rate, No murmurs Abdomen: Bowel Sounds Present, Soft, Non Tender Extremities: No edema, Capillary Refill Less than 3 Seconds Skin: No rashes, No breakdown Musculoskeletal: No Tenderness to Palpation of Joints or Extremities Neurological: Cranial nerves II-XII grossly intact Psych/Mental Status: Normal Affect, Appropriate Vital Signs Temp Pulse Resp BP Pulse Ox 98 F 96 18 129/69 H 96 01/08/18 07:58 01/08/18 07:58 01/08/18 07:58 01/08/18 07:58 01/08/18 11:24 Oxygen Flow Rate (L/min) 3 Oxygen Delivery Method Nasal Cannula Weight: 75 kg Body Mass Index (BMI) 28.2 Finger Stick Blood Glucose 162 Intake and Output for Last 24 Hours 01/06/18 01/07/18 01/08/18 23:59 23:59 23:59 Intake Total 360 / 360 240 / 240 Output Total 100 / 100 Balance 360 / 360 140 / 140 Laboratory Tests Past 24 Hrs 01/08/18 01/08/18 05:15 05:15 WBC 8.3 RBC 3.95 L Hgb 12.3 Hct 36.2 L MCV 91.6 MCH 31.1 MCHC 34.0 RDW 12.3 RDW Differential 40.5 Plt Count 207 MPV 10.7 Sodium 136 Potassium 3.7 Chloride 99 Carbon Dioxide 29.0 Anion Gap 8 BUN 12 Creatinine 0.52 L Estim Creat Clear Calc 93.14 Est GFR (MDRD) Af Amer 150 Est GFR (MDRD) Non-Af 124 BUN/Creatinine Ratio 22.9 H Glucose 155 H Calcium 8.8 Phosphorus 2.7 Magnesium 1.8 Total Bilirubin 0.60 AST 15 ALT 25 Alkaline Phosphatase 61 Total Protein 6.6 Albumin 3.0 L Globulin 3.6 Albumin/Globulin Ratio 0.8 L POC Glucose 01/08/18 01/08/18 10:38 06:10 POC Glucose 182 H 175 H Active Medications Acetaminophen (Tylenol) 650 mg PO Q6H PRN PRN PRN Reason: MILD PAIN (1-3/10) Last Admin: 01/08/18 08:04 Dose: 650 mg [facility] Stop: 01/22/18 08:01 Last Admin: 01/08/18 07:56 Dose: 325 mg Atorvastatin Calcium (Lipitor) 10 mg PO QHS [facility] Last Admin: 01/07/18 20:59 Dose: 10 mg Bisacodyl (Dulcolax) 10 mg RECTAL .PRN X 1 PRN PRN Reason: Constipation Calamine/Phenol (Calmoseptine Ointment) 1 applic TOPICAL BID [facility] PRN Reason: Protocol Citalopram Hydrobromide (Celexa) 40 mg PO DAILY [facility] Last Admin: 01/08/18 07:56 Dose: 40 mg Docusate Sodium (Colace) 100 mg PO BID PRN PRN PRN Reason: Constipation Famotidine (Pepcid) 40 mg PO DAILY [facility] Last Admin: 01/08/18 07:56 Dose: 40 mg Fentanyl (Duragesic Patch) 25 mcg TRANSDERM. Q3D [facility] Last Admin: 01/07/18 17:05 Dose: 25 mcg Gabapentin (Neurontin) 300 mg PO TIDCM [facility] Last Admin: 01/08/18 11:34 Dose: 300 mg Magnesium Hydroxide (Milk Of Magnesia) 30 ml PO .PRN X 1 PRN PRN Reason: Constipation Metformin [facility] (Glucophage) [facility] Last Admin: 01/08/18 07:56 Dose: 1,000 mg Ondansetron HCl (Zofran Odt) 4 mg PO Q8H PRN PRN PRN Reason: NAUSEA/VOMITING Oxycodone HCl (Oxyir) 5 - 10 mg PO Q6H PRN PRN PRN Reason: PAIN Last Admin: 01/08/18 05:01 Dose: 10 mg Pantoprazole Sodium (Protonix) 20 mg PO DAILY [facility] Last Admin: 01/08/18 07:57 Dose: 20 mg Senna/Docusate Sodium (Senokot-S, Tessa-Colace) 2 tablet PO BID [facility] Last Admin: 01/08/18 07:56 Dose: 2 tablet Medical Necessity - Tobacco Use Smoking Status: Light Smoker (<10/day) Tobacco Use: Cigarettes Assessment/Plan Impression: Debility status post ORIF of the right knee. complicated by history of Non insulin dependent diabetes, hyperlipidemia, depression, and current PPD smoker. Goal of therapy is anglican of prior level of functional independence. Plan: - Physical therapy for gait and balance - Occupational Therapy for ADLs - As needed analgesics - Bowel protocol - Depression -> continue home dose of Celexa - Hyperlipidemia -> continue home dose of Lipitor - DVT prophylaxis: ASA 325mg x 30 doses, SCD, and Lc hoses - Uncontrolled surgical pain - Fentanyl patch 25mg - NIDDM -> Fasting BG daily - GERD -> continue home medication - Hx chronic pain -> continue GPN 300mg TID, managed by Pain management, Dr. Ivey - Right knee ORIF -> Dressing to site is C/D/I, brace in place will Maintain brace in full extension x 2 weeks, may remove to shower only, will follow up with Dr. Webster.
[2018-01-08] MEDS: Menthol/Lanolin/Calamine/Znox 113 GM Tube 1 APPLIC TOPICAL ×2 (14:44→22:40)
[2018-01-08 20:14] VITALS: BP 137/66; PULSE 89; RESP 16; TEMP 36.6; O2SAT 94
[2018-01-08] MEDS: Atorvastatin Calcium 10 MG Tablet PO (22:40)
[2018-01-09] MEDS: oxyCODONE 5 MG Tablet PO ×2 (05:48→16:20)
[2018-01-09 06:43] VITALS: O2SAT 93
[2018-01-09] MEDS: Senna/Docusate Sodium 1 Tablet 2 TABLET PO ×2 (08:13→19:51)
[2018-01-09] MEDS: Famotidine 20 MG Tablet 40 MG PO (08:14)
[2018-01-09] MEDS: Pantoprazole Sodium 20 MG Tablet PO (08:14)
[2018-01-09 08:18] VITALS: BP 126/68; PULSE 86; RESP 17; TEMP 36.4; O2SAT 95
[2018-01-09] MEDS: Gabapentin 300 MG Capsule PO ×3 (08:19→16:20)
[2018-01-09] MEDS: Aspirin E.C. 325 MG Tablet PO ×2 (08:19→16:20)
[2018-01-09] MEDS: Citalopram 40 MG TABLET PO (08:19)
[2018-01-09] MEDS: Menthol/Lanolin/Calamine/Znox 113 GM Tube 1 APPLIC TOPICAL ×2 (08:20→19:52)
[2018-01-09 08:36] VITALS: O2SAT 91
--- NOTE | 2018-01-09 11:48 | PCM.PN.NEU ---
Subjective: Patient seen, sitting quietly in bedside recliner, talking with family. No acute event over night. Tolerating therapy. Pain is well controlled on current medications. No issues with GI/. - Physical Exam General: Alert HEENT: Atraumatic, PERRLA, EOMI, Normocephalic Neck: Supple, No JVD, Negative Carotid Bruits Lungs: Clear to auscultation, Normal air movement Cardiovascular: Regular rate, No murmurs Abdomen: Bowel Sounds Present, Soft, Non Tender Extremities: No edema, Capillary Refill Less than 3 Seconds Skin: No rashes, No breakdown Musculoskeletal: No Tenderness to Palpation of Joints or Extremities Neurological: Cranial nerves II-XII grossly intact Psych/Mental Status: Normal Affect, Appropriate Vital Signs Temp Pulse Resp BP Pulse Ox 97.5 F L 86 17 126/68 H 91 01/09/18 08:18 01/09/18 08:18 01/09/18 08:18 01/09/18 08:18 01/09/18 08:36 Oxygen Flow Rate (L/min) 3 Oxygen Delivery Method Room Air Weight: 75 kg Body Mass Index (BMI) 28.2 Finger Stick Blood Glucose 162 Intake and Output for Last 24 Hours 01/07/18 01/08/18 01/09/18 23:59 23:59 23:59 Intake Total 360 / 360 240 / 240 240 / 240 Output Total 700 / 700 Balance 360 / 360 -460 / -460 240 / 240 Active Medications Acetaminophen (Tylenol) 650 mg PO Q6H PRN PRN PRN Reason: MILD PAIN (1-3/10) Last Admin: 01/08/18 08:04 Dose: 650 mg [facility]) [facility] Stop: 01/22/18 08:01 Last Admin: 01/09/18 08:19 Dose: 325 mg Atorvastatin Calcium (Lipitor) [address] [facility] Last Admin: 01/08/18 22:40 Dose: 10 mg Bisacodyl (Dulcolax) 10 mg RECTAL .PRN X 1 PRN PRN Reason: Constipation Calamine/Phenol (Calmoseptine Ointment) [address] [facility] PRN Reason: Protocol Last Admin: 01/09/18 08:20 Dose: 1 applicatio Citalopram Hydrobromide (Celexa) [address] [facility] Last Admin: 01/09/18 08:19 Dose: 40 mg Docusate Sodium (Colace) 100 mg PO BID PRN PRN PRN Reason: Constipation Famotidine (Pepcid) [address] [facility] Last Admin: 01/09/18 08:14 Dose: 40 mg Fentanyl (Duragesic Patch) [address] [facility] Last Admin: 01/07/18 17:05 Dose: 25 mcg Gabapentin (Neurontin) [address] [facility] Last Admin: 01/09/18 11:31 Dose: 300 mg Magnesium Hydroxide (Milk Of Magnesia) 30 ml PO .PRN X 1 PRN PRN Reason: Constipation Metformin HCl (Glucophage) 1,[address] [facility] Last Admin: 01/09/18 08:19 Dose: 1,000 mg Ondansetron HCl (Zofran Odt) 4 mg PO Q8H PRN PRN PRN Reason: NAUSEA/VOMITING Oxycodone HCl (Oxyir) 5 - 10 mg PO Q6H PRN PRN PRN Reason: PAIN Last Admin: 01/09/18 05:48 Dose: 10 mg Pantoprazole Sodium (Protonix) [address] [facility] Last Admin: 01/09/18 08:14 Dose: 20 mg Senna/Docusate Sodium (Senokot-S, Tessa-Colace) [address] [facility] Last Admin: 01/09/18 08:13 Dose: 2 tablet Medical Necessity - Tobacco Use Smoking Status: Light Smoker (<10/day) Tobacco Use: Cigarettes Assessment/Plan Impression: Debility status post ORIF of the right knee. complicated by history of Non insulin dependent diabetes, hyperlipidemia, depression, and current PPD smoker. Goal of therapy is rastafari of prior level of functional independence. Plan: - Physical therapy for gait and balance - Occupational Therapy for ADLs - As needed analgesics - Bowel protocol - Depression -> continue home dose of Celexa - Hyperlipidemia -> continue home dose of Lipitor - DVT prophylaxis: ASA 325mg x 30 doses, SCD, and Lc hoses - Uncontrolled surgical pain - Fentanyl patch 25mg - NIDDM -> Fasting BG daily - GERD -> continue home medication - Hx chronic pain -> continue GPN 300mg TID, managed by Pain management, Dr. Ivey - Right knee ORIF -> Dressing to site is C/D/I, brace in place will Maintain brace in full extension x 2 weeks, may remove to shower only, will follow up with Dr. Webster.
--- NOTE | 2018-01-09 11:51 | PN.NEURO_ITS ---
Subjective: Patient seen, sitting quietly in bedside recliner, talking with family. No acute event over night. Tolerating therapy. Pain is well controlled on current medications. No issues with GI/. - Physical Exam General: Alert HEENT: Atraumatic, PERRLA, EOMI, Normocephalic Neck: Supple, No JVD, Negative Carotid Bruits Lungs: Clear to auscultation, Normal air movement Cardiovascular: Regular rate, No murmurs Abdomen: Bowel Sounds Present, Soft, Non Tender Extremities: No edema, Capillary Refill Less than 3 Seconds Skin: No rashes, No breakdown Musculoskeletal: No Tenderness to Palpation of Joints or Extremities Neurological: Cranial nerves II-XII grossly intact Psych/Mental Status: Normal Affect, Appropriate Vital Signs Temp Pulse Resp BP Pulse Ox 97.5 F L 86 17 126/68 H 91 01/09/18 08:18 01/09/18 08:18 01/09/18 08:18 01/09/18 08:18 01/09/18 08:36 Oxygen Flow Rate (L/min) 3 Oxygen Delivery Method Room Air Weight: 75 kg Body Mass Index (BMI) 28.2 Finger Stick Blood Glucose 162 Intake and Output for Last 24 Hours 01/07/18 01/08/18 01/09/18 23:59 23:59 23:59 Intake Total 360 / 360 240 / 240 240 / 240 Output Total 700 / 700 Balance 360 / 360 -460 / -460 240 / 240 Active Medications Acetaminophen (Tylenol) 650 mg PO Q6H PRN PRN PRN Reason: MILD PAIN (1-3/10) Last Admin: 01/08/18 08:04 Dose: 650 mg [facility] ([facility]cot[facility]) [facility] Stop: 01/22/18 08:01 Last Admin: 01/09/18 08:19 Dose: 325 mg Atorvastatin Calcium (Lipitor) 10 mg PO QHS [facility] Last Admin: 01/08/18 22:40 Dose: 10 mg Bisacodyl (Dulcolax) 10 mg RECTAL .PRN X 1 PRN PRN Reason: Constipation Calamine/Phenol (Calmoseptine Ointment) 1 applic TOPICAL BID [facility] PRN Reason: Protocol Last Admin: 01/09/18 08:20 Dose: 1 applicatio Citalopram Hydrobromide (Celexa) 40 mg PO DAILY [facility] Last Admin: 01/09/18 08:19 Dose: 40 mg Docusate Sodium (Colace) 100 mg PO BID PRN PRN PRN Reason: Constipation Famotidine (Pepcid) 40 mg PO DAILY [facility] Last Admin: 01/09/18 08:14 Dose: 40 mg Fentanyl (Duragesic Patch) 25 mcg TRANSDERM. Q3D [facility] Last Admin: 01/07/18 17:05 Dose: 25 mcg Gabapentin (Neurontin) 300 mg PO TIDCM [facility] Last Admin: 01/09/18 11:31 Dose: 300 mg Magnesium Hydroxide (Milk Of Magnesia) 30 ml PO .PRN X 1 PRN PRN Reason: Constipation Metformin HCl (Glucophage) 1,000 mg PO BIDCM [facility] Last Admin: 01/09/18 08:19 Dose: 1,000 mg Ondansetron HCl (Zofran Odt) 4 mg PO Q8H PRN PRN PRN Reason: NAUSEA/VOMITING Oxycodone HCl (Oxyir) 5 - 10 mg PO Q6H PRN PRN PRN Reason: PAIN Last Admin: 01/09/18 05:48 Dose: 10 mg Pantoprazole Sodium (Protonix) 20 mg PO DAILY [facility] Last Admin: 01/09/18 08:14 Dose: 20 mg Senna/Docusate Sodium (Senokot-S, Tessa-Colace) 2 tablet PO BID [facility] Last Admin: 01/09/18 08:13 Dose: 2 tablet Medical Necessity - Tobacco Use Smoking Status: Light Smoker (<10/day) Tobacco Use: Cigarettes Assessment/Plan Impression: Debility status post ORIF of the right knee. complicated by history of Non insulin dependent diabetes, hyperlipidemia, depression, and current PPD smoker. Goal of therapy is judaism of prior level of functional independence. Plan: - Physical therapy for gait and balance - Occupational Therapy for ADLs - As needed analgesics - Bowel protocol - Depression -> continue home dose of Celexa - Hyperlipidemia -> continue home dose of Lipitor - DVT prophylaxis: ASA 325mg x 30 doses, SCD, and Lc hoses - Uncontrolled surgical pain - Fentanyl patch 25mg - NIDDM -> Fasting BG daily - GERD -> continue home medication - Hx chronic pain -> continue GPN 300mg TID, managed by Pain management, Dr. Ivey - Right knee ORIF -> Dressing to site is C/D/I, brace in place will Maintain brace in full extension x 2 weeks, may remove to shower only, will follow up with Dr. Webster.
[2018-01-09 19:41] VITALS: BP 98/63; PULSE 96; RESP 18; TEMP 36.6; O2SAT 96
[2018-01-09] MEDS: Atorvastatin Calcium 10 MG Tablet PO (19:51)
[2018-01-10] MEDS: oxyCODONE 5 MG Tablet PO ×3 (00:44→20:13)
--- NOTE | 2018-01-10 00:48 | NURSING ---
Awakened incontinent. Up to [facility] for bm. Sats checked due to previous need for O2. Sats 86%. O2 applied at 3L. Resulting sats 93%
[2018-01-10 07:31] LABS: Bedside Glucose 135 mg/dL (70-110)
[2018-01-10 07:40] VITALS: BP 114/67; PULSE 91; RESP 18; TEMP 36.7; O2SAT 93
[2018-01-10] MEDS: Aspirin E.C. 325 MG Tablet PO ×2 (07:40→17:05)
[2018-01-10] MEDS: Pantoprazole Sodium 20 MG Tablet PO (07:41)
[2018-01-10] MEDS: Famotidine 20 MG Tablet 40 MG PO (07:41)
[2018-01-10] MEDS: Citalopram 40 MG TABLET PO (07:41)
[2018-01-10] MEDS: Gabapentin 300 MG Capsule PO ×3 (07:41→17:05)
[2018-01-10] MEDS: Menthol/Lanolin/Calamine/Znox 113 GM Tube 1 APPLIC TOPICAL ×2 (07:42→20:14)
--- NOTE | 2018-01-10 09:32 | PCM.RU.PYE ---
Admission Information Status Changes from Prescreening?: No changes Identified Actual Problem List:: Falls, Skin Intergrity, Pain, ALteration in Cmfrt, Mobility Impaired, Self Care Deficit, Diabetes, Hyperglycemia, BP, Hypertension, Ineffect.D/C Plan r/t Psy Potential Problem List:: DVT, Bleeding, Infection, UTI, Aspiration, Falls, Skin Integrity, Depression Risk of Complications DVT: LMWH, JOSE Hose, Sequential Compression Device Bleeding: Monitor Lab Values, Nursing to Teach Precautions for anti-coagulation therapy., Wound, if applicable, to be assessed every shift., Stroke patients assessed for lethargy or change in status. Infection: Clinical Staff to Monitor for S/S of infection:, S/S of infection include fever, redness, warmth, etc. Urinary Tract Infection: Monitor for frequency, burning, discomfort, or incontinence., Nursing will obtain urine sample for urinalysis and C&S when ordered. Aspiration: Clinical staff will monitor for coughing, drooling, congestion., Speech will evaluate swallowing and dsyphasia., Nursing will monitor patient swallowing during meals. Falls: Patient will be evaluated for Fall Precautions, Patient will be placed on Fall Precautions as indicated per protocol. Skin Breakdown: Nursing will assess skin daily using assessment tool., Nursing will place on Skin Breakdown Precautions as indicated. Pain: Clinical staff will assess patient's pain level per protocol., Medications will be given, if needed, and the pain level reassessed., Other methods: Massage, distraction, decrease stimulus, etc. used PRN. Plan of Care Patient requires physician specializing in physical medicine and rehab oversight to provide close medical supervision of rehab issues including: Pain Management, Sleep Problems, Bowel and Bladder, Medical and co-morbidity Management, DVT prophylaxis, Rehabilitation Leadership, Coordination of treatment team Patient needs Physical Therapy: For a minimum of 1 hour, At least 5 out of 7 days Patient needs Physical Therapy to improve:: Mobility, Mobility, Mobility, Strengthening, Transfers, Stretching, ROM, Endurance, Stairs, Gait, Balance Patient needs Occupational Therapy: For a minimum of 1 hour, At least 5 out of 7 days Patient needs Occupational Therapy to improve ADL's incl.: Eating, Grooming, Bathing, Dressing, Toileting, Toilet transfers, Community Reintegration, Higher functioning activities, Household tasks, Adaptive Equipment, Splinting, Other activities as determined Patient requires 24/ Rehabilitation Nursing for: Pain Issues, Identifying and preventing risk factors, Monitoring and reporting current medical conditions, Assisting with ambulation, transfer, and all ADL's, Teaching patients about disease process and medications, Family teaching, Providing safe environment, Bowel and Bladder Issues, Skin integrity, Medication Management Patient needs Registered Art Therapist/ Case Management for: Discharge Planning, Arranging Home Equipment or Services, Family Interventions Patient needs Dietary and Nutrition Services for: Adequate Nutrition, Nutritional Supplements, Nutritional Education Goals Patient will remain: free from falls, or injury at time of discharge. Patient will perform bed mobility at: MOD I level of assist. Patient will complete transfers from bed to chair at: MOD I level of assist. Patient will ambulate: 100 feet, with MOD I assist, with LRD Patient will complete upper body dressing at: MOD I level of assist. Patient will complete lower body dressing at: MOD I level of assist. Patient will complete toileting at: MOD I level of assist. Patient will perform bathing at: MOD I level of assist. Patient will complete grooming at: MOD I level of assist. Patient will complete home management skills at: MOD I level of assist. Patient will achieve: 12 stairs, at MOD I assist Patient will have pain level of: of 3 or less Patient's skin will: remain intact, free from infection. Patient will receive: adequate nutrition. Discharge Planning Pt Prognosis for Sig. Practical Improv. w/in Reasonable Time: Good Anticipated D/C Destination: Home with Outpt Therapy Was Preadmission Assessment Accurate?: Yes
[2018-01-10 11:37] VITALS: O2SAT 91
[2018-01-10 12:30] VITALS: O2SAT 94
--- NOTE | 2018-01-10 15:15 | PCM.PN.HOSP ---
Subjective: 67-year-old female with Type 2DM, hyperlipidemia, depression, GERD admitted to the acute rehab unit for rehab after sustaining a mechanical fall with resultant comminuted right patella fracture. The hospitalist team was consulted for medical management policy and acute rehab. Patient was seen and examined, ambulating with a wheelchair with the right knee extended. Denies any pain, denies any fever or chills or shortness of breath or chest pain. Objective: Physical Exam General: Alert, Oriented x3, Cooperative, not pale, not jaundiced HEENT: Atraumatic, PERRLA, EOMI, Normocephalic Neck: Supple, Lungs: Clear to auscultation, Normal air movement Cardiovascular: Regular rate, No murmurs Abdomen: Bowel Sounds Present, Soft, Non Tender Extremities: No edema, Capillary Refill Less than 3 Seconds Skin: No rashes, No breakdown Musculoskeletal: No Tenderness to Palpation of Joints or Extremities Neurological: Cranial nerves II-XII grossly intact Psych/Mental Status: Normal Affect, Appropriate Vitals/I&O's: Vital Signs Temp Pulse Resp BP Pulse Ox 98.0 F 91 18 114/67 94 01/10/18 07:40 01/10/18 07:40 01/10/18 07:40 01/10/18 07:40 01/10/18 12:30 Oxygen Flow Rate (L/min) 2 Oxygen Delivery Method Room Air Weight: 75 kg Body Mass Index (BMI) 28.2 Finger Stick Blood Glucose 162 Intake and Output for Last 24 Hours 01/08/18 01/09/18 01/10/18 23:59 23:59 23:59 Intake Total 240 / 240 920 / 920 240 / 240 Output Total 700 / 700 Balance -460 / -460 920 / 920 240 / 240 Laboratory Results 01/10/18 07:26: POC Glucose 135 H Current Medications Acetaminophen (Tylenol) 650 mg PO Q6H PRN PRN PRN Reason: MILD PAIN (-12/13) Last Admin: 01/08/18 08:04 Dose: 650 mg [facility] Stop: 01/22/18 08:01 Last Admin: 01/10/18 07:40 Dose: 325 mg Atorvastatin Calcium (Lipitor) 10 mg PO QHS [facility] Last Admin: 01/09/18 19:51 Dose: 10 mg Bisacodyl (Dulcolax) 10 mg RECTAL .PRN X 1 PRN PRN Reason: Constipation Calamine/Phenol (Calmoseptine Ointment) 1 applic TOPICAL BID [facility] PRN Reason: Protocol Last Admin: 01/10/18 07:42 Dose: 1 applicatio Citalopram Hydrobromide (Celexa) 40 mg PO DAILY [facility] Last Admin: 01/10/18 07:41 Dose: 40 mg Docusate Sodium (Colace) 100 mg PO BID PRN PRN PRN Reason: Constipation Famotidine (Pepcid) 40 mg PO DAILY [facility] Last Admin: 01/10/18 07:41 Dose: 40 mg Fentanyl (Duragesic Patch) 25 mcg TRANSDERM. Q3D [facility] Last Admin: 01/07/18 17:05 Dose: 25 mcg Gabapentin (Neurontin) 300 mg PO TIDCM [facility] Last Admin: 01/10/18 12:00 Dose: 300 mg Magnesium Hydroxide (Milk Of Magnesia) 30 ml PO .PRN X 1 PRN PRN Reason: Constipation Metformin [facility] (Glucophage) [facility] Last Admin: 01/10/18 07:40 Dose: 1,000 mg Ondansetron HCl (Zofran Odt) 4 mg PO Q8H PRN PRN PRN Reason: NAUSEA/VOMITING Oxycodone HCl (Oxyir) 5 - 10 mg PO Q6H PRN PRN PRN Reason: PAIN Last Admin: 01/10/18 09:11 Dose: 10 mg Pantoprazole Sodium (Protonix) 20 mg PO DAILY [facility] Last Admin: 01/10/18 07:41 Dose: 20 mg Senna/Docusate Sodium (Senokot-S, Tessa-Colace) 2 tablet PO BID [facility] Last Admin: 01/10/18 06:04 Dose: Not Given Medical Necessity - Tobacco Use Smoking Status: Light Smoker (<10/day) Tobacco Use: Cigarettes Assessment/Plan 7-year-old female with past medical history type II DM, hyperlipidemia, GERD, depression admitted to acute rehab for rehabilitation. 1. pain is Debility secondary to recent right comminuted patellar fracture, status post open reduction, undergoing rehabilitation, will continue to follow 2. Status post open reduction and internal fixation for right comminuted patella fracture, is fairly controlled on fentanyl patch, oxycodone, tylenol prn 3. Type II DM, BS are fairly controlled, on metformin, gabapentin 4. Hyperlipidemia, on statin 5. Depression, on celexa 6. GERD, on famotidine Code Visit Inpatient E&M: 70904 Subs Hosp L2
--- NOTE | 2018-01-10 15:23 | PN_ITS ---
Subjective: 67-year-old female with Type 2DM, hyperlipidemia, depression, GERD admitted to the acute rehab unit for rehab after sustaining a mechanical fall with resultant comminuted right patella fracture. The hospitalist team was consulted for medical management policy and acute rehab. Patient was seen and examined, ambulating with a wheelchair with the right knee extended. Denies any pain, denies any fever or chills or shortness of breath or chest pain. Objective: Physical Exam General: Alert, Oriented x3, Cooperative, not pale, not jaundiced HEENT: Atraumatic, PERRLA, EOMI, Normocephalic Neck: Supple, Lungs: Clear to auscultation, Normal air movement Cardiovascular: Regular rate, No murmurs Abdomen: Bowel Sounds Present, Soft, Non Tender Extremities: No edema, Capillary Refill Less than 3 Seconds Skin: No rashes, No breakdown Musculoskeletal: No Tenderness to Palpation of Joints or Extremities Neurological: Cranial nerves II-XII grossly intact Psych/Mental Status: Normal Affect, Appropriate Vitals/I&O's: Vital Signs Temp Pulse Resp BP Pulse Ox 98.0 F 91 18 114/67 94 01/10/18 07:40 01/10/18 07:40 01/10/18 07:40 01/10/18 07:40 01/10/18 12:30 Oxygen Flow Rate (L/min) 2 Oxygen Delivery Method Room Air Weight: 75 kg Body Mass Index (BMI) 28.2 Finger Stick Blood Glucose 162 Intake and Output for Last 24 Hours 01/08/18 01/09/18 01/10/18 23:59 23:59 23:59 Intake Total 240 / 240 920 / 920 240 / 240 Output Total 700 / 700 Balance -460 / -460 920 / 920 240 / 240 Laboratory Results 01/10/18 07:26: POC Glucose 135 H Current Medications Acetaminophen (Tylenol) 650 mg PO Q6H PRN PRN PRN Reason: MILD PAIN (-12/13) Last Admin: 01/08/18 08:04 Dose: 650 mg [facility] Stop: 01/22/18 08:01 Last Admin: 01/10/18 07:40 Dose: 325 mg Atorvastatin Calcium (Lipitor) 10 mg PO QHS [facility] Last Admin: 01/09/18 19:51 Dose: 10 mg Bisacodyl (Dulcolax) 10 mg RECTAL .PRN X 1 PRN PRN Reason: Constipation Calamine/Phenol (Calmoseptine Ointment) 1 applic TOPICAL BID [facility] PRN Reason: Protocol Last Admin: 01/10/18 07:42 Dose: 1 applicatio Citalopram Hydrobromide (Celexa) 40 mg PO DAILY [facility] Last Admin: 01/10/18 07:41 Dose: 40 mg Docusate Sodium (Colace) 100 mg PO BID PRN PRN PRN Reason: Constipation Famotidine (Pepcid) 40 mg PO DAILY [facility] Last Admin: 01/10/18 07:41 Dose: 40 mg Fentanyl (Duragesic Patch) 25 mcg TRANSDERM. Q3D [facility] Last Admin: 01/07/18 17:05 Dose: 25 mcg Gabapentin (Neurontin) 300 mg PO TIDCM [facility] Last Admin: 01/10/18 12:00 Dose: 300 mg Magnesium Hydroxide (Milk Of Magnesia) 30 ml PO .PRN X 1 PRN PRN Reason: Constipation Metformin [facility] (Glucophage) [facility] Last Admin: 01/10/18 07:40 Dose: 1,000 mg Ondansetron HCl (Zofran Odt) 4 mg PO Q8H PRN PRN PRN Reason: NAUSEA/VOMITING Oxycodone HCl (Oxyir) 5 - 10 mg PO Q6H PRN PRN PRN Reason: PAIN Last Admin: 01/10/18 09:11 Dose: 10 mg Pantoprazole Sodium (Protonix) 20 mg PO DAILY [facility] Last Admin: 01/10/18 07:41 Dose: 20 mg Senna/Docusate Sodium (Senokot-S, Tessa-Colace) 2 tablet PO BID [facility] Last Admin: 01/10/18 06:04 Dose: Not Given Medical Necessity - Tobacco Use Smoking Status: Light Smoker (<10/day) Tobacco Use: Cigarettes Assessment/Plan 7-year-old female with past medical history type II DM, hyperlipidemia, GERD, depression admitted to acute rehab for rehabilitation. 1. pain is Debility secondary to recent right comminuted patellar fracture, status post open reduction, undergoing rehabilitation, will continue to follow 2. Status post open reduction and internal fixation for right comminuted patella fracture, is fairly controlled on fentanyl patch, oxycodone, tylenol prn 3. Type II DM, BS are fairly controlled, on metformin, gabapentin 4. Hyperlipidemia, on statin 5. Depression, on celexa 6. GERD, on famotidine Code Visit Inpatient E&M: 03443 Subs Hosp L2
[2018-01-10] MEDS: fentaNYL 25 MCG Patch TRANSDERM. (15:39)
[2018-01-10 16:45] VITALS: O2SAT 88
--- NOTE | 2018-01-10 17:26 | CPS ---
O2 on at wall, patient declined wearing nasal cannula, RN aware.
[2018-01-10 19:24] VITALS: BP 106/67; PULSE 87; RESP 16; TEMP 36.7; O2SAT 97
[2018-01-10] MEDS: Atorvastatin Calcium 10 MG Tablet PO (20:13)
[2018-01-11 06:56] LABS: Bedside Glucose 155 mg/dL (70-110)
[2018-01-11 07:32] VITALS: BP 106/60; PULSE 85; RESP 17; TEMP 36.8; O2SAT 90
[2018-01-11] MEDS: Aspirin E.C. 325 MG Tablet PO ×2 (07:50→17:03)
[2018-01-11] MEDS: Citalopram 40 MG TABLET PO (07:50)
[2018-01-11] MEDS: Gabapentin 300 MG Capsule PO ×3 (07:50→17:03)
[2018-01-11] MEDS: Pantoprazole Sodium 20 MG Tablet PO (07:50)
[2018-01-11] MEDS: Famotidine 20 MG Tablet 40 MG PO (07:50)
[2018-01-11] MEDS: Menthol/Lanolin/Calamine/Znox 113 GM Tube 1 APPLIC TOPICAL ×2 (07:51→21:00)
[2018-01-11] MEDS: oxyCODONE 5 MG Tablet PO ×2 (09:21→21:00)
--- NOTE | 2018-01-11 15:20 | NURSING ---
patient spo2 88% denies SOB or no acute distress noted. per patient does not want oxygen and that her PCP is aware prior to admission and no oxygen needed per patient.
[2018-01-11 15:26] VITALS: O2SAT 88
--- NOTE | 2018-01-11 15:26 | CPS ---
patient not placed on oxygen per patient request, RN aware
[2018-01-11 19:52] VITALS: BP 105/62; PULSE 92; RESP 18; TEMP 36.9; O2SAT 91
[2018-01-11] MEDS: Atorvastatin Calcium 10 MG Tablet PO (21:00)
[2018-01-12 07:01] LABS: Bedside Glucose 172 mg/dL (70-110)
--- NOTE | 2018-01-12 07:15 | NURSING ---
Pt refused eating breakfast in multi purpose room. Pt stated she wants to eat in her room.
[2018-01-12] MEDS: Aspirin E.C. 325 MG Tablet PO ×2 (07:43→16:49)
[2018-01-12] MEDS: Pantoprazole Sodium 20 MG Tablet PO (07:43)
[2018-01-12] MEDS: Citalopram 40 MG TABLET PO (07:43)
[2018-01-12] MEDS: Senna/Docusate Sodium 1 Tablet 2 TABLET PO (07:44)
[2018-01-12] MEDS: Famotidine 20 MG Tablet 40 MG PO (07:44)
[2018-01-12] MEDS: Gabapentin 300 MG Capsule PO ×3 (07:44→16:49)
[2018-01-12] MEDS: Menthol/Lanolin/Calamine/Znox 113 GM Tube 1 APPLIC TOPICAL ×2 (07:45→20:19)
[2018-01-12] MEDS: oxyCODONE 5 MG Tablet PO ×2 (07:47→20:20)
[2018-01-12 09:03] VITALS: BP 118/73; PULSE 103; RESP 18; TEMP 36.4; O2SAT 88
--- NOTE | 2018-01-12 10:14 | PCM.PN.NEU ---
Subjective: Staffed in team meeting. Family was not at bedside. Questions answered. With Physical therapy, she is standby assist for bed mobility, transfers from a sitting to standing position, and for pivots. She does require cues to slow down and to remind her of her weight bearing status. She is able to walk about 150 feet with a walker. She has gone up 5 steps using 2 hand rails, and a hand on her back for safety purposes. With Occupational therapy she is standby assist for all her grooming, she is able to get on and off the toilet with just a light hand at times, she is able to get in and out of the shower, at stand by with a light hand at times. With Nursing her pain is well controlled on current medications. The plan is for discharge on 01/16 with In home Physical therapy and a Nurse to change the dressing on her knee incision. - Physical Exam General: Alert, Oriented x3, Cooperative HEENT: Atraumatic, PERRLA, EOMI, Normocephalic Neck: Supple, No JVD, Negative Carotid Bruits Lungs: Clear to auscultation, Normal air movement Cardiovascular: Regular rate, No murmurs Abdomen: Bowel Sounds Present, Soft, Non Tender Extremities: No edema, Capillary Refill Less than 3 Seconds Skin: No rashes, No breakdown Musculoskeletal: No Tenderness to Palpation of Joints or Extremities Neurological: Cranial nerves II-XII grossly intact Psych/Mental Status: Normal Affect, Appropriate Vital Signs Temp Pulse Resp BP Pulse Ox 97.6 F L 103 H 18 118/73 88 01/12/18 09:03 01/12/18 09:03 01/12/18 09:03 01/12/18 09:03 01/12/18 09:03 Oxygen Flow Rate (L/min) 2 Oxygen Delivery Method Room Air Weight: 75 kg Body Mass Index (BMI) 28.2 Finger Stick Blood Glucose 162 Intake and Output for Last 24 Hours 01/10/18 01/11/18 01/12/18 23:59 23:59 23:59 Intake Total 500 / 500 540 / 540 240 / 240 Balance 500 / 500 540 / 540 240 / 240 POC Glucose 01/12/18 06:49 POC Glucose 172 H Active Medications Acetaminophen (Tylenol) 650 mg PO Q6H PRN PRN PRN Reason: MILD PAIN (-12/13) Last Admin: 01/08/18 08:04 Dose: 650 [facility] Stop: 01/22/18 08:01 Last Admin: 01/12/18 07:43 Dose: 325 mg Atorvastatin Calcium (Lipitor) 10 mg PO QHS [facility] Last Admin: 01/11/18 21:00 Dose: 10 mg Bisacodyl (Dulcolax) 10 mg RECTAL .PRN X 1 PRN PRN Reason: Constipation Calamine/Phenol (Calmoseptine Ointment) 1 applic TOPICAL BID [facility] PRN Reason: Protocol Last Admin: 01/12/18 07:45 Dose: 1 applicatio Citalopram Hydrobromide (Celexa) 40 mg PO DAILY [facility] Last Admin: 01/12/18 07:43 Dose: 40 mg Docusate Sodium (Colace) 100 mg PO BID PRN PRN PRN Reason: Constipation Famotidine (Pepcid) 40 mg PO DAILY [facility] Last Admin: 01/12/18 07:44 Dose: 40 mg Fentanyl (Duragesic Patch) 25 mcg TRANSDERM. Q3D [facility] Last Admin: 01/10/18 15:39 Dose: 25 mcg Gabapentin (Neurontin) 300 mg PO TIDCM [facility] Last Admin: 01/12/18 07:44 Dose: 300 mg Magnesium Hydroxide (Milk Of Magnesia) 30 ml PO .PRN X 1 PRN PRN Reason: Constipation Metformin [facility] ([facility]) [facility] Last Admin: 01/12/18 07:43 Dose: 1,000 mg Ondansetron HCl (Zofran Odt) 4 mg PO Q8H PRN PRN PRN Reason: NAUSEA/VOMITING Oxycodone HCl (Oxyir) 5 - 10 mg PO Q6H PRN PRN PRN Reason: PAIN Last Admin: 01/12/18 07:47 Dose: 10 mg Pantoprazole Sodium (Protonix) 20 mg PO DAILY [facility] Last Admin: 01/12/18 07:43 Dose: 20 mg Senna/Docusate Sodium (Senokot-S, Tessa-Colace) 2 tablet PO BID [facility] Last Admin: 01/12/18 07:44 Dose: 2 tablet Medical Necessity - Tobacco Use Smoking Status: Light Smoker (<10/day) Tobacco Use: Cigarettes Assessment/Plan Impression: Debility status post ORIF of the right knee. complicated by history of Non insulin dependent diabetes, hyperlipidemia, depression, and current PPD smoker. Goal of therapy is mormonism of prior level of functional independence. Plan: - Physical therapy for gait and balance - Occupational Therapy for ADLs - As needed analgesics - Bowel protocol - Depression -> continue home dose of Celexa - Hyperlipidemia -> continue home dose of Lipitor - DVT prophylaxis: ASA 325mg x 30 doses, SCD, and Lc hoses - Uncontrolled surgical pain - Fentanyl patch 25mg - NIDDM -> Fasting BG daily - GERD -> continue home medication - Hx chronic pain -> continue GPN 300mg TID, managed by Pain management, Dr. Ivey - Right knee ORIF -> Dressing to site is C/D/I, brace in place will Maintain brace in full extension x 2 weeks, may remove to shower only, will follow up with Dr. Webster.
--- NOTE | 2018-01-12 10:15 | PN_ITS ---
Subjective: Patient 67-year-old lady with multiple comorbidities including diabetes mellitus type 2 dyslipidemia who noted to the inpatient rehab unit following right comminuted patella fracture for which patient underwent open reduction and internal fixation Vitals/I&O's: Vital Signs Temp Pulse Resp BP Pulse Ox 97.6 F L 103 H 18 118/73 88 01/12/18 09:03 01/12/18 09:03 01/12/18 09:03 01/12/18 09:03 01/12/18 09:03 Oxygen Flow Rate (L/min) 2 Oxygen Delivery Method Room Air Weight: 75 kg Body Mass Index (BMI) 28.2 Finger Stick Blood Glucose 162 Intake and Output for Last 24 Hours 01/10/18 01/11/18 01/12/18 23:59 23:59 23:59 Intake Total 500 / 500 540 / 540 240 / 240 Balance 500 / 500 540 / 540 240 / 240 General: Cooperative HEENT: Atraumatic Neck: Supple Lungs: Diminished Cardiovascular: Regular rate, Regular Rhythm Abdomen: Non-Distended Extremities: No clubbing, No cyanosis Skin: No rashes Neurological: Neuro grossly intact Psych/Mental Status: Normal Affect Laboratory Results 01/12/18 06:49: POC Glucose 172 H Current Medications Acetaminophen (Tylenol) 650 mg PO Q6H PRN PRN PRN Reason: MILD PAIN (1-310) Last Admin: 01/08/18 08:04 Dose: 650 [facility] Stop: 01/22/18 08:01 Last Admin: 01/12/18 07:43 Dose: 325 mg Atorvastatin Calcium (Lipitor) 10 mg PO QHS [facility] Last Admin: 01/11/18 21:00 Dose: 10 mg Bisacodyl (Dulcolax) 10 mg RECTAL .PRN X 1 PRN PRN Reason: Constipation Calamine/Phenol (Calmoseptine Ointment) 1 applic TOPICAL BID [facility] PRN Reason: Protocol Last Admin: 01/12/18 07:45 Dose: 1 applicatio Citalopram Hydrobromide (Celexa) 40 mg PO DAILY [facility] Last Admin: 01/12/18 07:43 Dose: 40 mg Docusate Sodium (Colace) 100 mg PO BID PRN PRN PRN Reason: Constipation Famotidine (Pepcid) 40 mg PO DAILY [facility] Last Admin: 01/12/18 07:44 Dose: 40 mg Fentanyl (Duragesic Patch) 25 mcg TRANSDERM. Q3D [facility] Last Admin: 01/10/18 15:39 Dose: 25 mcg Gabapentin (Neurontin) 300 mg PO TIDCM [facility] Last Admin: 01/12/18 07:44 Dose: 300 mg Magnesium Hydroxide (Milk Of Magnesia) 30 ml PO .PRN X 1 PRN PRN Reason: Constipation Metformin HCl (Glucophage) 1,000 mg PO BIDCM [facility] Last Admin: 01/12/18 07:43 Dose: 1,000 mg Ondansetron HCl (Zofran Odt) 4 mg PO Q8H PRN PRN PRN Reason: NAUSEA/VOMITING Oxycodone HCl (Oxyir) 5 - 10 mg PO Q6H PRN PRN PRN Reason: PAIN Last Admin: 01/12/18 07:47 Dose: 10 mg Pantoprazole Sodium (Protonix) 20 mg PO DAILY [facility] Last Admin: 01/12/18 07:43 Dose: 20 mg Senna/Docusate Sodium (Senokot-S, Tessa-Colace) 2 tablet PO BID [facility] Last Admin: 01/12/18 07:44 Dose: 2 tablet Medical Necessity - Tobacco Use Smoking Status: Light Smoker (<10/day) Tobacco Use: Cigarettes Assessment/Plan Patient 67-year-old lady with multiple comorbidities including diabetes mellitus type 2 dyslipidemia who noted to the inpatient rehab unit following right comminuted patella fracture for which patient underwent open reduction and internal fixation 1. Status post right comminuted patella fracture for which patient underwent surgery admitted to the inpatient rehab unit where patient is currently undergoing therapy 2. Diabetes mellitus type 2 did continue with home regimen in addition to Accu- Cheks before meals and at bedtime with sliding scale coverage 3. Diabetic neuropathy patient is on gabapentin 4. Dyslipidemia-patient is on statin therapy, continued at home dose 5. Depression patient is on SSRI 6. GERD on H2 blockers 7. DVT prophylaxis aspirin 325 mg twice daily as recommended by orthopedic surgery
--- NOTE | 2018-01-12 10:19 | PN.NEURO_ITS ---
Subjective: Staffed in team meeting. Family was not at bedside. Questions answered. With Physical therapy, she is standby assist for bed mobility, transfers from a sitting to standing position, and for pivots. She does require cues to slow down and to remind her of her weight bearing status. She is able to walk about 150 feet with a walker. She has gone up 5 steps using 2 hand rails, and a hand on her back for safety purposes. With Occupational therapy she is standby assist for all her grooming, she is able to get on and off the toilet with just a light hand at times, she is able to get in and out of the shower, at stand by with a light hand at times. With Nursing her pain is well controlled on current medications. The plan is for discharge on 01/16 with In home Physical therapy and a Nurse to change the dressing on her knee incision. - Physical Exam General: Alert, Oriented x3, Cooperative HEENT: Atraumatic, PERRLA, EOMI, Normocephalic Neck: Supple, No JVD, Negative Carotid Bruits Lungs: Clear to auscultation, Normal air movement Cardiovascular: Regular rate, No murmurs Abdomen: Bowel Sounds Present, Soft, Non Tender Extremities: No edema, Capillary Refill Less than 3 Seconds Skin: No rashes, No breakdown Musculoskeletal: No Tenderness to Palpation of Joints or Extremities Neurological: Cranial nerves II-XII grossly intact Psych/Mental Status: Normal Affect, Appropriate Vital Signs Temp Pulse Resp BP Pulse Ox 97.6 F L 103 H 18 118/73 88 01/12/18 09:03 01/12/18 09:03 01/12/18 09:03 01/12/18 09:03 01/12/18 09:03 Oxygen Flow Rate (L/min) 2 Oxygen Delivery Method Room Air Weight: 75 kg Body Mass Index (BMI) 28.2 Finger Stick Blood Glucose 162 Intake and Output for Last 24 Hours 01/10/18 01/11/18 01/12/18 23:59 23:59 23:59 Intake Total 500 / 500 540 / 540 240 / 240 Balance 500 / 500 540 / 540 240 / 240 POC Glucose 01/12/18 06:49 POC Glucose 172 H Active Medications Acetaminophen (Tylenol) 650 mg PO Q6H PRN PRN PRN Reason: MILD PAIN (-12/13) Last Admin: 01/08/18 08:04 Dose: 650 mg [facility] Stop: 01/22/18 08:01 Last Admin: 01/12/18 07:43 Dose: 325 mg Atorvastatin Calcium (Lipitor) 10 mg PO QHS [facility] Last Admin: 01/11/18 21:00 Dose: 10 mg Bisacodyl (Dulcolax) 10 mg RECTAL .PRN X 1 PRN PRN Reason: Constipation Calamine/Phenol (Calmoseptine Ointment) 1 applic TOPICAL BID [facility] PRN Reason: Protocol Last Admin: 01/12/18 07:45 Dose: 1 applicatio Citalopram Hydrobromide (Celexa) 40 mg PO DAILY [facility] Last Admin: 01/12/18 07:43 Dose: 40 mg Docusate Sodium (Colace) 100 mg PO BID PRN PRN PRN Reason: Constipation Famotidine (Pepcid) 40 mg PO DAILY [facility] Last Admin: 01/12/18 07:44 Dose: 40 mg Fentanyl (Duragesic Patch) 25 mcg TRANSDERM. Q3D [facility] Last Admin: 01/10/18 15:39 Dose: 25 mcg Gabapentin (Neurontin) 300 mg PO TIDCM [facility] Last Admin: 01/12/18 07:44 Dose: 300 mg Magnesium Hydroxide (Milk Of Magnesia) 30 ml PO .PRN X 1 PRN PRN Reason: Constipation Metformin [facility] (Gl[facility]) [facility] Last Admin: 01/12/18 07:43 Dose: 1,000 mg Ondansetron HCl (Zofran Odt) 4 mg PO Q8H PRN PRN PRN Reason: NAUSEA/VOMITING Oxycodone HCl (Oxyir) 5 - 10 mg PO Q6H PRN PRN PRN Reason: PAIN Last Admin: 01/12/18 07:47 Dose: 10 mg Pantoprazole Sodium (Protonix) 20 mg PO DAILY [facility] Last Admin: 01/12/18 07:43 Dose: 20 mg Senna/Docusate Sodium (Senokot-S, Tessa-Colace) 2 tablet PO BID [facility] Last Admin: 01/12/18 07:44 Dose: 2 tablet Medical Necessity - Tobacco Use Smoking Status: Light Smoker (<10/day) Tobacco Use: Cigarettes Assessment/Plan Impression: Debility status post ORIF of the right knee. complicated by history of Non insulin dependent diabetes, hyperlipidemia, depression, and current PPD smoker. Goal of therapy is quaker of prior level of functional independence. Plan: - Physical therapy for gait and balance - Occupational Therapy for ADLs - As needed analgesics - Bowel protocol - Depression -> continue home dose of Celexa - Hyperlipidemia -> continue home dose of Lipitor - DVT prophylaxis: ASA 325mg x 30 doses, SCD, and Lc hoses - Uncontrolled surgical pain - Fentanyl patch 25mg - NIDDM -> Fasting BG daily - GERD -> continue home medication - Hx chronic pain -> continue GPN 300mg TID, managed by Pain management, Dr. Ivey - Right knee ORIF -> Dressing to site is C/D/I, brace in place will Maintain brace in full extension x 2 weeks, may remove to shower only, will follow up with Dr. Webster.
--- NOTE | 2018-01-12 10:28 | CASEMGMT ---
Team meeting held. Patient resent, no support person present. Collaborating with team and patient. Patient plans to discharge home with family on 01/16/18. Physical therapy and prison are recommending for patient to have continued services within the home at time of discharge. Patient is agreeable to home health services. Patient reporting to be planning to contact patient family about team meeting information as well as discharge date. Patient declining for this public health social worker to contact patient family about team or discharge. Support given. Proposed discharge date: 01/16/18 PLAN: Discharge home with family and home health services. Karen CARVAJAL, TRANSITION RN
[2018-01-12 12:48] VITALS: O2SAT 91
--- NOTE | 2018-01-12 16:25 | CHAPLAIN ---
Type of Pastoral Visit _x__ Initial Visit ___ Follow-up Visit ___ On-call Visit ___ General Patient Visit ___ Spiritual Assessment ___ Family Conference ___ Bereavement ___ Rapid Response ___ Code Blue ___ Other (describe below) Pastoral Care Referral From _x__ Patient ___ Family ___ Nurse ___ Physician ___ Software Developer Mid Level ___ Plastic Molding Operator ___ Other (describe below) Sacrament/Intervention _x__ Active listening ___ Anointing ___ Jehovah'S Witness ___ Bereavement ___ Communion ___ Colette exploration ___ ___ Life review ___ Prayer ___ Reconciliation ___ Sacrament of Sick ___ Supportive presence ___ Wedding ___ Other (describe below) Pastoral Comments casual visit with patient; pt was sitting in chair and watching TV; no needs noted; pt is hoping to go home by end of week
[2018-01-12 19:18] VITALS: BP 117/61; PULSE 82; RESP 18; TEMP 36.6; O2SAT 93
[2018-01-12] MEDS: Atorvastatin Calcium 10 MG Tablet PO (20:20)
[2018-01-13 06:56] LABS: Bedside Glucose 191 mg/dL (70-110)
[2018-01-13 07:30] VITALS: BP 115/68; PULSE 79; RESP 18; TEMP 36.9; O2SAT 87
[2018-01-13] MEDS: Gabapentin 300 MG Capsule PO ×3 (07:54→16:51)
[2018-01-13] MEDS: Menthol/Lanolin/Calamine/Znox 113 GM Tube 1 APPLIC TOPICAL ×2 (07:54→20:35)
[2018-01-13] MEDS: Aspirin E.C. 325 MG Tablet PO ×2 (07:54→16:52)
[2018-01-13] MEDS: oxyCODONE 5 MG Tablet PO ×2 (07:56→20:33)
[2018-01-13 09:41] VITALS: O2SAT 90
[2018-01-13 10:30] VITALS: O2SAT 92
[2018-01-13] MEDS: Pantoprazole Sodium 20 MG Tablet PO (11:31)
[2018-01-13] MEDS: Citalopram 40 MG TABLET PO (11:31)
[2018-01-13] MEDS: Famotidine 20 MG Tablet 40 MG PO (11:31)
[2018-01-13] MEDS: fentaNYL 25 MCG Patch TRANSDERM. (16:51)
[2018-01-13 20:30] VITALS: BP 115/67; PULSE 86; RESP 16; TEMP 36.8; O2SAT 94
[2018-01-13] MEDS: Atorvastatin Calcium 10 MG Tablet PO (20:34)
--- NOTE | 2018-01-14 02:15 | NURSING ---
REVIEWED AND AGREE WITH [employer] AND HANDOFF CHARTING.
[2018-01-14 07:15] LABS: Bedside Glucose 132 mg/dL (70-110)
[2018-01-14] MEDS: Famotidine 20 MG Tablet 40 MG PO (08:02)
[2018-01-14] MEDS: oxyCODONE 5 MG Tablet PO ×2 (08:02→21:12)
[2018-01-14] MEDS: Citalopram 40 MG TABLET PO (08:02)
[2018-01-14] MEDS: Aspirin E.C. 325 MG Tablet PO ×2 (08:02→16:23)
[2018-01-14] MEDS: Pantoprazole Sodium 20 MG Tablet PO (08:02)
[2018-01-14] MEDS: Gabapentin 300 MG Capsule PO ×3 (08:02→16:23)
[2018-01-14] MEDS: Menthol/Lanolin/Calamine/Znox 113 GM Tube 1 APPLIC TOPICAL ×2 (08:04→21:14)
--- NOTE | 2018-01-14 08:59 | PCM.PN.HOSP ---
Subjective: Patient seen participating in physical therapy Objective: General: Cooperative HEENT: Atraumatic Neck: Supple Lungs: Diminished Cardiovascular: Regular rate, Regular Rhythm Abdomen: Non-Distended Extremities: No clubbing, No cyanosis Skin: No rashes Neurological: Neuro grossly intact Psych/Mental Status: Normal Affect Vitals/I&O's: Vital Signs Temp Pulse Resp BP Pulse Ox 98.2 F 86 16 115/67 94 01/13/18 20:30 01/13/18 20:30 01/13/18 20:30 01/13/18 20:30 01/13/18 20:30 Oxygen Flow Rate (L/min) 2 Oxygen Delivery Method Room Air Weight: 75 kg Body Mass Index (BMI) 28.2 Finger Stick Blood Glucose 162 Intake and Output for Last 24 Hours 01/12/18 01/13/18 01/14/18 23:59 23:59 23:59 Intake Total 680 / 680 720 / 720 240 / 240 Balance 680 / 680 720 / 720 240 / 240 Laboratory Results 01/14/18 07:11: POC Glucose 132 H Current Medications Acetaminophen (Tylenol) 650 mg PO Q6H PRN PRN PRN Reason: MILD PAIN (1-3) Last Admin: 01/08/18 08:04 Dose: 650 mg [facility] Stop: 01/22/18 08:01 Last Admin: 01/14/18 08:02 Dose: 325 mg Atorvastatin Calcium (Lipitor) 10 mg PO QHS [facility] Last Admin: 01/13/18 20:34 Dose: 10 mg Bisacodyl (Dulcolax) 10 mg RECTAL .PRN X 1 PRN PRN Reason: Constipation Calamine/Phenol (Calmoseptine Ointment) 1 applic TOPICAL BID [facility] PRN Reason: Protocol Last Admin: 01/14/18 08:04 Dose: 1 applicatio Citalopram Hydrobromide (Celexa) 40 mg PO DAILY [facility] Last Admin: 01/14/18 08:02 Dose: 40 mg Docusate Sodium (Colace) 100 mg PO BID PRN PRN PRN Reason: Constipation Famotidine (Pepcid) 40 mg PO DAILY [facility] Last Admin: 01/14/18 08:02 Dose: 40 mg Fentanyl (Duragesic Patch) 25 mcg TRANSDERM. Q3D [facility] Last Admin: 01/13/18 16:51 Dose: 25 mcg Gabapentin (Neurontin) 300 mg PO TIDCM [facility] Last Admin: 01/14/18 08:02 Dose: 300 mg Magnesium Hydroxide (Milk Of Magnesia) 30 ml PO .PRN X 1 PRN PRN Reason: Constipation Metformin HCl (Glucophage) 1,000 mg PO BIDCM [facility] Last Admin: 01/14/18 08:02 Dose: 1,000 mg Ondansetron HCl (Zofran Odt) 4 mg PO Q8H PRN PRN PRN Reason: NAUSEA/VOMITING Oxycodone HCl (Oxyir) 5 - 10 mg PO Q6H PRN PRN PRN Reason: PAIN Last Admin: 01/14/18 08:02 Dose: 10 mg Pantoprazole Sodium (Protonix) 20 mg PO DAILY [facility] Last Admin: 01/14/18 08:02 Dose: 20 mg Senna/Docusate Sodium (Senokot-S, Tessa-Colace) 2 tablet PO BID [facility] Last Admin: 01/14/18 08:03 Dose: Not Given Medical Necessity - Tobacco Use Smoking Status: Light Smoker (<10/day) Tobacco Use: Cigarettes Assessment/Plan Patient 67-year-old lady with multiple comorbidities including diabetes mellitus type 2 dyslipidemia who noted to the inpatient rehab unit following right comminuted patella fracture for which patient underwent open reduction and internal fixation 1. Status post right comminuted patella fracture for which patient underwent surgery admitted to the inpatient rehab unit where patient is currently undergoing therapy 2. Diabetes mellitus type 2 did continue with home regimen in addition to Accu-Cheks before meals and at bedtime with sliding scale coverage 3. Diabetic neuropathy patient is on gabapentin 4. Dyslipidemia-patient is on statin therapy, continued at home dose 5. Depression patient is on SSRI 6. GERD on H2 blockers 7. DVT prophylaxis aspirin 325 mg twice daily as recommended by orthopedic surgery Code Visit Inpatient E&M: 37041 Subs Hosp L2
[2018-01-14 09:02] VITALS: BP 114/70; PULSE 82; RESP 18; TEMP 36.8; O2SAT 91
--- NOTE | 2018-01-14 13:51 | PCM.PN.NEU ---
Subjective: Patient seen and examined. Tolerating therapy, Pain well controlled. No issues with GI/. Scheduled for discharge home on 01/16 with Physical therapy. - Physical Exam General: Alert, Oriented x3, Cooperative HEENT: Atraumatic, PERRLA, EOMI, Normocephalic Neck: Supple, No JVD, Negative Carotid Bruits Lungs: Clear to auscultation, Normal air movement Cardiovascular: Regular rate, No murmurs Abdomen: Bowel Sounds Present, Soft, Non Tender Extremities: No edema, Capillary Refill Less than 3 Seconds Skin: No rashes, No breakdown Musculoskeletal: No Tenderness to Palpation of Joints or Extremities Neurological: Cranial nerves II-XII grossly intact Psych/Mental Status: Normal Affect, Appropriate, Alert and oriented to time, place, person, mood and affect Vital Signs Temp Pulse Resp BP Pulse Ox 98.2 F 82 18 114/70 91 01/14/18 09:02 01/14/18 09:02 01/14/18 09:02 01/14/18 09:02 01/14/18 09:02 Oxygen Flow Rate (L/min) 2 Oxygen Delivery Method Room Air Weight: 75 kg Body Mass Index (BMI) 28.2 Finger Stick Blood Glucose 162 Intake and Output for Last 24 Hours 01/12/18 01/13/18 01/14/18 23:59 23:59 23:59 Intake Total 680 / 680 720 / 720 240 / 240 Balance 680 / 680 720 / 720 240 / 240 POC Glucose 01/14/18 07:11 POC Glucose 132 H Active Medications Acetaminophen (Tylenol) 650 mg PO Q6H PRN PRN PRN Reason: MILD PAIN (-12/13) Last Admin: 01/08/18 08:04 Dose: 650 mg [facility] Stop: 01/22/18 08:01 Last Admin: 01/14/18 08:02 Dose: 325 mg Atorvastatin Calcium (Lipitor) 10 mg PO QHS [facility] Last Admin: 01/13/18 20:34 Dose: 10 mg Bisacodyl (Dulcolax) 10 mg RECTAL .PRN X 1 PRN PRN Reason: Constipation Calamine/Phenol (Calmoseptine Ointment) 1 applic TOPICAL BID [facility] PRN Reason: Protocol Last Admin: 01/14/18 08:04 Dose: 1 applicatio Citalopram Hydrobromide (Celexa) 40 mg PO DAILY [facility] Last Admin: 01/14/18 08:02 Dose: 40 mg Docusate Sodium (Colace) 100 mg PO BID PRN PRN PRN Reason: Constipation Famotidine (Pepcid) 40 mg PO DAILY [facility] Last Admin: 01/14/18 08:02 Dose: 40 mg Fentanyl (Duragesic Patch) 25 mcg TRANSDERM. Q3D [facility] Last Admin: 01/13/18 16:51 Dose: 25 mcg Gabapentin (Neurontin) 300 mg PO TIDCM [facility] Last Admin: 01/14/18 11:41 Dose: 300 mg Magnesium Hydroxide (Milk Of Magnesia) 30 ml PO .PRN X 1 PRN PRN Reason: Constipation Metformin [facility] (Glucophage) [facility] Last Admin: 01/14/18 08:02 Dose: 1,000 mg Ondansetron HCl (Zofran Odt) 4 mg PO Q8H PRN PRN PRN Reason: NAUSEA/VOMITING Oxycodone HCl (Oxyir) 5 - 10 mg PO Q6H PRN PRN PRN Reason: PAIN Last Admin: 01/14/18 08:02 Dose: 10 mg Pantoprazole Sodium (Protonix) 20 mg PO DAILY [facility] Last Admin: 01/14/18 08:02 Dose: 20 mg Senna/Docusate Sodium (Senokot-S, Tessa-Colace) 2 tablet PO BID [facility] Last Admin: 01/14/18 08:03 Dose: Not Given Medical Necessity - Tobacco Use Smoking Status: Light Smoker (<10/day) Tobacco Use: Cigarettes Assessment/Plan Impression: Debility status post ORIF of the right knee. complicated by history of Non insulin dependent diabetes, hyperlipidemia, depression, and current PPD smoker. Goal of therapy is sabianism of prior level of functional independence. Plan: - Physical therapy for gait and balance - Occupational Therapy for ADLs - As needed analgesics - Bowel protocol - Depression -> continue home dose of Celexa - Hyperlipidemia -> continue home dose of Lipitor - DVT prophylaxis: ASA 325mg x 30 doses, SCD, and Lc hoses - Uncontrolled surgical pain - Fentanyl patch 25mg - NIDDM -> Fasting BG daily - GERD -> continue home medication - Hx chronic pain -> continue GPN 300mg TID, managed by Pain management, Dr. Ivey - Right knee ORIF -> Dressing to site is C/D/I, brace in place will Maintain brace in full extension x 2 weeks, may remove to shower only, will follow up with Dr. Webster. - Plan is discharge home on 01/16/18 with Physical therapy
--- NOTE | 2018-01-14 13:55 | PN.NEURO_ITS ---
Subjective: Patient seen and examined. Tolerating therapy, Pain well controlled. No issues with GI/. Scheduled for discharge home on 01/16 with Physical therapy. - Physical Exam General: Alert, Oriented x3, Cooperative HEENT: Atraumatic, PERRLA, EOMI, Normocephalic Neck: Supple, No JVD, Negative Carotid Bruits Lungs: Clear to auscultation, Normal air movement Cardiovascular: Regular rate, No murmurs Abdomen: Bowel Sounds Present, Soft, Non Tender Extremities: No edema, Capillary Refill Less than 3 Seconds Skin: No rashes, No breakdown Musculoskeletal: No Tenderness to Palpation of Joints or Extremities Neurological: Cranial nerves II-XII grossly intact Psych/Mental Status: Normal Affect, Appropriate, Alert and oriented to time, place, person, mood and affect Vital Signs Temp Pulse Resp BP Pulse Ox 98.2 F 82 18 114/70 91 01/14/18 09:02 01/14/18 09:02 01/14/18 09:02 01/14/18 09:02 01/14/18 09:02 Oxygen Flow Rate (L/min) 2 Oxygen Delivery Method Room Air Weight: 75 kg Body Mass Index (BMI) 28.2 Finger Stick Blood Glucose 162 Intake and Output for Last 24 Hours 01/12/18 01/13/18 01/14/18 23:59 23:59 23:59 Intake Total 680 / 680 720 / 720 240 / 240 Balance 680 / 680 720 / 720 240 / 240 POC Glucose 01/14/18 07:11 POC Glucose 132 H Active Medications Acetaminophen (Tylenol) 650 mg PO Q6H PRN PRN PRN Reason: MILD PAIN (-12/13) Last Admin: 01/08/18 08:04 Dose: 650 mg [facility] Stop: 01/22/18 08:01 Last Admin: 01/14/18 08:02 Dose: 325 mg Atorvastatin Calcium (Lipitor) 10 mg PO QHS [facility] Last Admin: 01/13/18 20:34 Dose: 10 mg Bisacodyl (Dulcolax) 10 mg RECTAL .PRN X 1 PRN PRN Reason: Constipation Calamine/Phenol (Calmoseptine Ointment) 1 applic TOPICAL BID [facility] PRN Reason: Protocol Last Admin: 01/14/18 08:04 Dose: 1 applicatio Citalopram Hydrobromide (Celexa) 40 mg PO DAILY [facility] Last Admin: 01/14/18 08:02 Dose: 40 mg Docusate Sodium (Colace) 100 mg PO BID PRN PRN PRN Reason: Constipation Famotidine (Pepcid) 40 mg PO DAILY [facility] Last Admin: 01/14/18 08:02 Dose: 40 mg Fentanyl (Duragesic Patch) 25 mcg TRANSDERM. Q3D [facility] Last Admin: 01/13/18 16:51 Dose: 25 mcg Gabapentin (Neurontin) 300 mg PO TIDCM [facility] Last Admin: 01/14/18 11:41 Dose: 300 mg Magnesium Hydroxide (Milk Of Magnesia) 30 ml PO .PRN X 1 PRN PRN Reason: Constipation Metformin HCl (Glucophage) 1,[facility] Last Admin: 01/14/18 08:02 Dose: 1,000 mg Ondansetron HCl (Zofran Odt) 4 mg PO Q8H PRN PRN PRN Reason: NAUSEA/VOMITING Oxycodone HCl (Oxyir) 5 - 10 mg PO Q6H PRN PRN PRN Reason: PAIN Last Admin: 01/14/18 08:02 Dose: 10 mg Pantoprazole Sodium (Protonix) 20 mg PO DAILY [facility] Last Admin: 01/14/18 08:02 Dose: 20 mg Senna/Docusate Sodium (Senokot-S, Tessa-Colace) 2 tablet PO BID [facility] Last Admin: 01/14/18 08:03 Dose: Not Given Medical Necessity - Tobacco Use Smoking Status: Light Smoker (<10/day) Tobacco Use: Cigarettes Assessment/Plan Impression: Debility status post ORIF of the right knee. complicated by history of Non insulin dependent diabetes, hyperlipidemia, depression, and current PPD smoker. Goal of therapy is congregation of prior level of functional independence. Plan: - Physical therapy for gait and balance - Occupational Therapy for ADLs - As needed analgesics - Bowel protocol - Depression -> continue home dose of Celexa - Hyperlipidemia -> continue home dose of Lipitor - DVT prophylaxis: ASA 325mg x 30 doses, SCD, and Lc hoses - Uncontrolled surgical pain - Fentanyl patch 25mg - NIDDM -> Fasting BG daily - GERD -> continue home medication - Hx chronic pain -> continue GPN 300mg TID, managed by Pain management, Dr. Ivey - Right knee ORIF -> Dressing to site is C/D/I, brace in place will Maintain brace in full extension x 2 weeks, may remove to shower only, will follow up with Dr. Webster. - Plan is discharge home on 01/16/18 with Physical therapy
--- NOTE | 2018-01-14 16:20 | CASEMGMT ---
Addendum entered by Karen Arroyo 01/15/18 10:38: [facility] also added to home health referral per N.P recommendation. Order for home health services faxed to [facility]. Original Note: Social Work Spoke with patient in room. Patient requesting for home health services to be set up through [facility] for both the physical and occupational therapy as is recommended. Patient plans to discharge home with family at time of discharge. Patient reporting to have all needed durable medical equipment already set up within the home. Patient family planning to provide transportation home for patient at time of discharge. Support given. Telephone call to [facility], [place]. This director social welfare making referral for physical and occupational therapy. Orders to be faxed when obtained. Proposed discharge date: 01/16/18 PLAN: Discharge home with family and home health services. Karen CARVAJAL, BACTERIOLOGY TECHNICIAN
[2018-01-14 21:02] VITALS: BP 130/70; PULSE 83; RESP 12; TEMP 36.8; O2SAT 93
[2018-01-14] MEDS: Atorvastatin Calcium 10 MG Tablet PO (21:13)
[2018-01-14] MEDS: Senna/Docusate Sodium 1 Tablet 2 TABLET PO (21:13)
[2018-01-15 06:46] LABS: Bedside Glucose 128 mg/dL (70-110)
[2018-01-15 07:39] VITALS: BP 114/61; PULSE 76; RESP 16; TEMP 36.6; O2SAT 94
[2018-01-15] MEDS: Gabapentin 300 MG Capsule PO ×3 (07:59→17:27)
[2018-01-15] MEDS: oxyCODONE 5 MG Tablet PO ×2 (07:59→20:10)
[2018-01-15] MEDS: Aspirin E.C. 325 MG Tablet PO ×2 (07:59→17:27)
[2018-01-15] MEDS: Pantoprazole Sodium 20 MG Tablet PO (07:59)
[2018-01-15] MEDS: Citalopram 40 MG TABLET PO (08:00)
[2018-01-15] MEDS: Menthol/Lanolin/Calamine/Znox 113 GM Tube 1 APPLIC TOPICAL ×2 (08:01→20:12)
[2018-01-15] MEDS: Famotidine 20 MG Tablet 40 MG PO (09:48)
--- NOTE | 2018-01-15 10:26 | PCM.RU.DC ---
Rehab Discharge Summary DATE OF ADMISSION: 01/07/18 DATE OF DISCHARGE: 01/16/18 - Rehab Diagnosis Right Patella Revision Discharge Diet: No Restrictions Discharge Activity: May Not Drive, May not drive while taking narcotic pain medications., May Shower - Take brace off to shower, Use Walker, - - not soak in tub bath until cleared by Surgeon Dr. Webster Weight Bearing Status: Partial weight bearing - Right lower extremity, may advance to 30 degree flexion next week Call your doctor if your incision/area has: Increased Pain/ Swelling, Increased Redness, Foul Smelling Discharge, Swelling at the incision site Call your doctor if you observe: Fever of 101 or Higher, Coldness, Increased Pain, Numbness or Tingling, Change in Color, Inability to urinate, Inability to have a bowel movement, Using more than one pad per hour, Shortness of breath, Dizziness, Fainting spells, Swelling in the ankles, Chest pain, Prolonged hiccoughing, Increased palpitations (irregular heartbeat), Calf discomfort, Uncontrolled pain Cleanse incision/area with: Keep Dressing Clean & Dry Additional Dressing/Incision Instructions:: change dressing daily Home Medications: Medications to take at Discharge Citalopram [Celexa] 40 mg PO DAILY 02/26/15 Lansoprazole [Prevacid] 20 mg PO DAILY 02/26/15 Lovastatin [Mevacor] 40 mg PO DAILY 02/26/15 Metformin HCl [Glucophage] 1,000 mg PO BID 02/26/15 Gabapentin [Neurontin] 300 mg PO TID 07/17/17 Aspirin E.C. [Ecotrin] 325 mg PO BID 01/07/18 Famotidine [Pepcid] 40 mg PO DAILY 01/07/18 Acetaminophen [Tylenol Tablet] 650 mg PO Q6H PRN PRN tablet 01/15/18 Oxycodone HCl/Acetaminophen [Percocet 5-325] 1 - 2 tab PO Q6H PRN PRN #60 tab 01/15/18 Following Prescrptions Were Given to Patient: Oxycodone HCl/Acetaminophen [Percocet 5-325] 1 - 2 tab PO Q6H PRN PRN #60 tab PRN Reason: Pain Primary Care Physician: Roxi Ritter MD [Primary Care Provider] - Please Follow Up With: Dr. Webster Please Follow Up With: Dr. Ritter Disposition: Home with Home Health Minutes spent on discharge:: 40 Patient Condition:: Good Rehab Course The patient is a 67-year-old right handed female, admitted to rehab unit for rehabilitation, after sustaining a mechanical fall directly onto her right patella resulting in a comminuted right patella fracture. She has a pass medical history of non insulin dependent diabetes (NIDDM), HLD, Chronic Pain sees a painter rough Dr. Ivey, Depression and GERD. She walks with a cane 2/2 chronic left hip pain. She lives with her son and his family, in a one story home with one large step to get into the home. She was previously completely functionally independent and is admitted to the rehab unit in order to restore her previous level of functional independence.With Physical therapy, she is standby assist for bed mobility, transfers from a sitting to standing position, and for pivots. She does require cues to slow down and to remind her of her weight bearing status. She is able to walk about 150 feet with a walker. She has gone up 5 steps using 2 hand rails, and a hand on her back for safety purposes. With Occupational therapy she is standby assist for all her grooming, she is able to get on and off the toilet with just a light hand at times, she is able to get in and out of the shower, at stand by with a light hand at times. With Nursing her pain is well controlled on current medications. The plan is for discharge on 01/16 with In home Physical therapy, Occupational therapy and a Nurse to change the dressing on her knee incision. Meaningful Use Info Meaningful Use Diagnoses (Choose all that apply): None applicable
--- NOTE | 2018-01-15 10:26 | PCM.DC ---
- Discharge Diagnoses Reason(s) for Visit for Discharge Instructions: Right Patella Revision You will use the following diet at home:: Regular Your food should be the consistency of: Regular Your liquids should be the consistency of: Regular/Thin Discharge Activity: May Not Drive - until cleared by Surgeon Dr. Webster, May not drive while taking narcotic pain medications., May Shower - remove knee brace before hand, Use Walker, - - Do not soak in a tub bath until cleared by Surgeon Dr. Webster Weight Bearing Status: Partial weight bearing - Right lower extremity, may advance to 30 degrees flexion next week Call your doctor if your incision/area has: Increased Pain/ Swelling, Increased Redness, Foul Smelling Discharge, Swelling at the incision site Call your doctor if you observe: Fever of 101 or Higher, Coldness, Increased Pain, Numbness or Tingling, Change in Color, Inability to urinate, Inability to have a bowel movement, Using more than one pad per hour, Shortness of breath, Dizziness, Fainting spells, Swelling in the ankles, Chest pain, Prolonged hiccoughing, Increased palpitations (irregular heartbeat), Calf discomfort, Uncontrolled pain Allergies/Adverse Reactions: Allergies No Known Allergies Allergy (Verified 01/01/18 08:33) Medications to take at Discharge Citalopram [Celexa] 40 mg PO DAILY 02/26/15 Lansoprazole [Prevacid] 20 mg PO DAILY 02/26/15 Lovastatin [Mevacor] 40 mg PO DAILY 02/26/15 Metformin HCl [Glucophage] 1,000 mg PO BID 02/26/15 Gabapentin [Neurontin] 300 mg PO TID 07/17/17 Aspirin E.C. [Ecotrin] 325 mg PO BID 01/07/18 Famotidine [Pepcid] 40 mg PO DAILY 01/07/18 Acetaminophen [Tylenol Tablet] 650 mg PO Q6H PRN PRN tablet 01/15/18 Oxycodone HCl/Acetaminophen [Percocet 5-325] 1 - 2 tab PO Q6H PRN PRN #60 tab 01/15/18 The following prescriptions were given: Oxycodone HCl/Acetaminophen [Percocet 5-325] 1 - 2 tab PO Q6H PRN PRN #60 tab PRN Reason: Pain Primary Care Physician: Roxi Ritter MD [Primary Care Provider] - Please Follow Up With: Dr. Webster Please Follow Up With: Dr. Ritter Proposed Discharge Date: 01/16/18
--- NOTE | 2018-01-15 15:00 | NURSING ---
Neighbor here to come see patient and he will be taking patient home tomorrow. Patient agreed that he can take her prescription to the pharmacy for her so that it is ready for tomorrow and done so.
[2018-01-15 19:06] VITALS: BP 127/68; PULSE 86; RESP 18; TEMP 36.9; O2SAT 91
[2018-01-15] MEDS: Atorvastatin Calcium 10 MG Tablet PO (20:11)
[2018-01-16 07:16] LABS: Bedside Glucose 162 mg/dL (70-110)
[2018-01-16] MEDS: Aspirin E.C. 325 MG Tablet PO (08:23)
[2018-01-16] MEDS: Gabapentin 300 MG Capsule PO (08:24)
[2018-01-16] MEDS: Citalopram 40 MG TABLET PO (08:24)
[2018-01-16] MEDS: Famotidine 20 MG Tablet 40 MG PO (08:24)
[2018-01-16] MEDS: Pantoprazole Sodium 20 MG Tablet PO (08:25)
[2018-01-16] MEDS: oxyCODONE 5 MG Tablet PO (08:31)
[2018-01-16 08:35] VITALS: BP 129/63; PULSE 88; RESP 18; TEMP 36.8; O2SAT 93
--- NOTE | 2018-01-16 09:16 | NURSING ---
Went over pt discharge meds, appts, wound care, pt verbalized understanding. Discharged home with neighbor with all personal belongings in hand.
[2018-01-16 09:18] VITALS: BP 129/63; PULSE 88; RESP 18; TEMP 36.8; O2SAT 93
--- NOTE | 2018-01-16 11:45 | PCM.PN.HOSP ---
Subjective: Patient seen plan is for patient to be discharged today by primary service Objective: General: Cooperative HEENT: Atraumatic Neck: Supple Lungs: Diminished Cardiovascular: Regular rate, Regular Rhythm Abdomen: Non-Distended Extremities: No clubbing, No cyanosis Skin: No rashes Neurological: Neuro grossly intact Psych/Mental Status: Normal Affect Vitals/I&O's: Vital Signs Temp Pulse Resp BP Pulse Ox 98.3 F 88 18 129/63 H 93 01/16/18 09:18 01/16/18 09:18 01/16/18 09:18 01/16/18 09:18 01/16/18 09:18 Oxygen Flow Rate (L/min) 2 Oxygen Delivery Method Room Air Weight: 75 kg Body Mass Index (BMI) 28.2 Finger Stick Blood Glucose 162 Intake and Output for Last 24 Hours 01/14/18 01/15/18 01/16/18 23:59 23:59 23:59 Intake Total 840 / 840 500 / 500 240 / 240 Balance 840 / 840 500 / 500 240 / 240 Laboratory Results 01/16/18 06:38: POC Glucose 162 H Medical Necessity - Tobacco Use Smoking Status: Light Smoker (<10/day) Tobacco Use: Cigarettes Assessment/Plan Patient 67-year-old lady with multiple comorbidities including diabetes mellitus type 2 dyslipidemia who noted to the inpatient rehab unit following right comminuted patella fracture for which patient underwent open reduction and internal fixation 1. Status post right comminuted patella fracture for which patient underwent surgery admitted to the inpatient rehab unit where patient is currently undergoing therapy 2. Diabetes mellitus type 2 did continue with home regimen in addition to Accu-Cheks before meals and at bedtime with sliding scale coverage 3. Diabetic neuropathy patient is on gabapentin 4. Dyslipidemia-patient is on statin therapy, continued at home dose 5. Depression patient is on SSRI 6. GERD on H2 blockers 7. DVT prophylaxis aspirin 325 mg twice daily as recommended by orthopedic surgery Code Visit Inpatient E&M: [id number] [facility] Hosp L2
== END 2018-01-16 09:25 | disposition home health service (06) | DRG 561 ==
PROVIDERS: Nurse Practitioner Acute Care; Admitting Provider Psychiatry & Neurology Neurology; Family Provider Internal Medicine; PCP Internal Medicine; Visit Provider Internal Medicine
DX: S82.041D Displaced comminuted fracture of right patella, subsequent encounter for closed fracture with routine healing (principal); W18.30XD Fall on same level, unspecified, subsequent encounter; E11.40 Type 2 diabetes mellitus with diabetic neuropathy, unspecified; E78.5 Hyperlipidemia, unspecified; F32.9 Major depressive disorder, single episode, unspecified; Z79.899 Other long term (current) drug therapy; K21.9 Gastro-esophageal reflux disease without esophagitis; G89.29 Other chronic pain; F17.210 Nicotine dependence, cigarettes, uncomplicated; M25.552 Pain in left hip
CPT/HCPCS: 36415; 80053; 82962; 83735; 84100; 85027; 97110; 97116; 97162; 97166; 97530; 97535; 97802

== ENCOUNTER → 2018-01-19 09:33 | Outpatient (CLI) | payer MEDICARE, MEDICAID, SELFPAY ==
--- NOTE | 2018-01-19 09:36 | RAD_ITS ---
STUDY: X-RAY - RIGHT KNEE REASON FOR EXAM: Female, 67 years old. 2 weeks postop. TECHNIQUE: AP and lateral view(s) of the knee. COMPARISON: Comparison is made with prior examination dated January 06, 2018. FINDINGS: Normal visualized distal femur. Normal visualized proximal tibia and fibula. Normal proximal tibiofibular articulation. The patient is status post open reduction and internal fixation of the patellar fracture. There is good alignment. Bony healing is seen. Persistent soft tissue swelling. RAD/Knee 1 or 2 Views IMPRESSION: Status post ORIF of the patellar fracture. There is good alignment. Persistent soft tissue swelling. Electronically Signed: Rohit Montes MD at 15:15 EDT Tel [phone], Service support ,
== END ==
PROVIDERS: Family Provider Internal Medicine; PCP Internal Medicine; Visit Provider Orthopaedic Surgery
DX: S82.001A Unspecified fracture of right patella, initial encounter for closed fracture (principal); X58.XXXA Exposure to other specified factors, initial encounter
CPT/HCPCS: 73560

== ENCOUNTER 2018-01-26 13:36 | Outpatient (RCR) | payer MEDICARE, MEDICAID, SELFPAY ==
--- NOTE | 2018-01-26 14:30 | HP.PTEVAL_ITS ---
Patient's Visit Information TYRONE PARTIDA is a 67 year old F referred to Physical Therapy by Jose A Webster DO with a diagnosis of Right ORIF patella 01/06/18. Date of Evaluation: 01/26/18 Physical Therapist: Annelise Mallory - Visit Plan Frequency: 2x /Week Duration: 4 Weeks Plan: 0-30 degrees until 02/02. 0-60 degrees until 02/19. Then will follow up with MD at 6 weeks. Educated on importance of brace. Hold until follows up with MD and is allowed full ROM - Subjective Subjective: Feel on the kitchen floor a few weeks ago- had a neighbor helped her up- made an apt with Dr. Webster and he told her it was fractured and set up surgery for the 01/06/18 then went to rehab and went home on 01/15. Lives with her son in a one story home with one stair inside- no problems getting in/out. Is now able to do all the housework- cleaning and cooking for everyone. Wears the brace all the time except when she sits outside she takes it off for some air to get on it. Used a cane before the fall due to having a bad hip on the left side and sees pain managment. Was given a TROM brace but she had a hard time with it so she is wearing a different pain. No pain the right leg. Sleep : not disturbed. No N/T in the foot/leg. Wants to get the brace off and get back to all her normal activities. Does not drive. PMHx/meds: no change since surgery. Had x-rays last time she had her apt. He was very happy with her progress. - Objective Posture: FH,RS. Gait: antalgic- decreased stance on the right LE secondary to knee immobilizer. SLS: WS but unable to SLS. HR/TR: WNL with UE a. ROM:0-30 degrees- could easily go further but encouraged by PT to stop secondary to protocol per MD. Strength: quad set visible- no extension lag with SLR, Ankle: 5/5, Knee flexion: 4+/5 in available range, HIp: 4+/5 - Goals Goal 1:: Patient will be I with HEP and progression Goal Time Frame: 4-6 Weeks Goal 2:: Patient will demo 5/5 strength in LE Goal Time Frame: 4-6 Weeks Goal 3:: Patient will ambulate >300 feet with a normalized gait pattern and LRD Goal Time Frame: 4-6 Weeks - Rehabilitation Potential Physical Therapy Diagnosis: Patient presents with hypomobility- decreased ROM, strength and muscular endurance leading to abnormal gait and decreased ability to perform ADL's. Rehabilitation Potential: Good - Anticipated Interventions Patient/Client Instruction: Educate patient on: Benefits of Fitness Program For the Purpose of:: To improve ability to perform ADL's Therapeutic Exercise to Include: Strength training, Endurance training, Balance training, Body mechanics, Flexibilty training, Gait and locomotor training, Dynamic Lumbar Stabilization For the Purpose of:: To improve muscle performance and motor function Thank you for the opportunity to evaluate your patient. For Medicare and Medicare HMO plans, please review the plan of care and approve it. It will need to be FAXED BACK to us at [phone] for Medicare purposes. Please let me know if there are questions or concerns regarding this plan of care. Physician Signature: Date:
--- NOTE | 2018-06-30 11:45 | HP.PT.NRP ---
HP - Discharge Summary (1) - Patient Information TYRONE PARTIDA was seen in my office for initial evaluation on 01/26/18. The following Plan of Care was established for this patient: Initial Frequency: 2x /Week Initial Duration: 4 Weeks - Anticipated Interventions Patient/Client Instruction: Educate patient on: Benefits of Fitness Program For the Purpose of:: To improve ability to perform ADL's Therapeutic Exercise to Include: Strength training, Endurance training, Balance training, Body mechanics, Flexibilty training, Gait and locomotor training, Dynamic Lumbar Stabilization For the Purpose of:: To improve muscle performance and motor function This patient was last seen in our office . Pertinent comments regarding their Physical therapy will appear below: Patient has not attended physical therapy in over 8 weeks. At this time patient is appropriate for d/c and return to MD as needed. At this point I will be discontinuing this patient from physical therapy. I would be happy to see this patient again in the future if found appropriate by the physician. Thank you! Annelise Mallory
== END 2018-01-26 19:00 | disposition home or self-care (01) ==
LOC: PT 13:36
PROVIDERS: Family Provider Internal Medicine; PCP Internal Medicine; Visit Provider Orthopaedic Surgery
DX: Z98.890 Other specified postprocedural states (principal)
CPT/HCPCS: 97161

== ENCOUNTER → 2018-02-23 13:10 | Outpatient (CLI) | payer MEDICARE, MEDICAID, SELFPAY ==
--- NOTE | 2018-02-23 13:13 | RAD_ITS ---
STUDY: X-RAY - RIGHT KNEE REASON FOR EXAM: Patellar fracture. TECHNIQUE: 4 view(s) of the knee. COMPARISON: Radiographs 01/19/2018. FINDINGS: Normal visualized distal femur. Normal visualized proximal tibia and fibula. Normal proximal tibiofibular articulation. There is operative reduction internal fixation of a patellar fracture with anatomic alignment and position There are minimal marginal osteophytes and mild joint space narrowing of the medial femorotibial compartment. Normal lateral femorotibial compartment. Normal patellofemoral articulation. There is soft tissue swelling at the anterior aspect of the knee. RAD/Knee 4 or More Views IMPRESSION: ORIF of patellar fracture with anatomic alignment and position. Mild arthrosis of the medial femorotibial compartment. Electronically Signed: Jose Murillo MD at 15:15 EDT Tel , Service support ,
== END ==
PROVIDERS: Family Provider Internal Medicine; PCP Internal Medicine; Visit Provider Orthopaedic Surgery
DX: S82.009A Unspecified fracture of unspecified patella, initial encounter for closed fracture (principal)
CPT/HCPCS: 73564

== ENCOUNTER → 2018-12-10 12:05 | Outpatient (CLI) | payer MEDICARE, SELFPAY ==
--- NOTE | 2018-12-10 12:10 | RAD_ITS ---
STUDY: X-RAY - RIGHT KNEE REASON FOR EXAM: Female, 68 years old. Right knee pain, fall TECHNIQUE: 3 view(s) of the knee. COMPARISON: None. FINDINGS: Normal visualized distal femur. Normal visualized proximal tibia and fibula. Normal proximal tibiofibular articulation. There is mild degenerative arthrosis of the medial femorotibial compartment. There is mild degenerative arthrosis of the lateral femorotibial compartment. There is mild degenerative arthrosis of the patellofemoral articulation. There is no demonstrated joint effusion. Postsurgical fixation of the patella. No evidence of acute fracture. Questionable thickening of the patellar tendon. Mild soft tissue swelling RAD/Knee 3 Views IMPRESSION: No acute findings. Postsurgical changes of the right patella. Possible thickening of the patellar tendon. Degenerative changes. Electronically Signed: Kwadwo Broderick DO at 12:06 EST Tel , Service support ,
--- NOTE | 2018-12-10 12:10 | RAD_ITS ---
STUDY: X-RAY - LEFT KNEE REASON FOR EXAM: Female, 68 years old. Left knee pain, chronic fall TECHNIQUE: 3 view(s) of the knee. COMPARISON: None. FINDINGS: Normal visualized distal femur. Normal visualized proximal tibia and fibula. Normal proximal tibiofibular articulation. There is mild degenerative arthrosis of the medial femorotibial compartment. There is mild degenerative arthrosis of the lateral femorotibial compartment. There is mild degenerative arthrosis of the patellofemoral articulation. No significant joint effusion. Possible small amount of medial compartment joint space narrowing. The soft tissue structures are unremarkable. RAD/Knee 3 Views IMPRESSION: No acute findings. Degenerative changes Electronically Signed: Kwadwo Broderick DO at 12:07 EST Tel , Service support ,
== END ==
PROVIDERS: Family Provider Internal Medicine; PCP Internal Medicine; Referring Provider Nurse Practitioner Family; Visit Provider Nurse Practitioner Family
DX: M25.562 Pain in left knee (principal); M25.561 Pain in right knee
CPT/HCPCS: 73562

== ENCOUNTER 2018-12-12 11:18 | Emergency (ER) | payer MEDICARE, SELFPAY ==
[2018-12-12 11:24] VITALS: BP 110/62; PULSE 75; RESP 16; TEMP 36.4; O2SAT 87; BMI 29.0
[2018-12-12 11:34] VITALS: O2SAT 86
--- NOTE | 2018-12-12 11:37 | CT_ITS ---
STUDY: CT CERVICAL SPINE WITHOUT CONTRAST REASON FOR EXAM: Female, 68 years old. Fall, injury, left scalp laceration RADIATION DOSAGE (If Supplied By Facility): CTDIvol = ( 11.67 ) mGy, DLP = ( 235.49 ) mGycm TECHNIQUE: High resolution transaxial imaging was performed without contrast material. Sagittal and coronal images were reconstructed. Individualized dose optimization techniques were used for this CT. COMPARISON: None FINDINGS: Normal craniovertebral junction. There are degenerative changes of the anterior atlantoaxial articulation. Normal odontoid process. There is straightening of the normal cervical lordosis. Normal vertebral bodies and posterior osseous elements. C2-3: Minimal loss of disc space with mild degree of left uncovertebral hypertrophy mildly narrowing the left neural foramen. No canal stenosis. C3-4: Bilateral uncovertebral and facet arthropathy causing mild bilateral foraminal stenosis. C4-5: Disc space narrowing with anterior spondylosis and posterior disc osteophyte complex, uncovertebral hypertrophy and left more than right facet arthropathy causing left more than right foraminal stenosis. C5-6: Anterior spondylosis with mild disc space narrowing. Mild left foraminal narrowing due to uncovertebral and facet hypertrophy. C6-7: Disc space narrowing with anterior spondylosis and posterior disc osteophyte complex. Left uncovertebral and facet arthropathy severely narrowing the left neural foramen. C7-T1: Normal endplates. Normal disc height and morphology. Normal central canal and intervertebral neuroforamina. There is atherosclerosis of the bilateral carotid arteries. There is an unhealed fracture of the medial right clavicle . CT/Spine Cervical without Contras IMPRESSION: 1. No cervical spine fracture or subluxation. 2. Multilevel degenerative changes, as above. 3. Medial right clavicle fracture, indeterminate age but unhealed. Correlate with history of prior injury and clinical palpation. Electronically Signed: Marvin Hernandez MD at 12:39 EST , Service support ,
--- NOTE | 2018-12-12 11:37 | RAD_ITS ---
STUDY: X-RAY CHEST REASON FOR EXAM: Female, 68 years old. Fall today TECHNIQUE: AP COMPARISON: 2014 FINDINGS: EKG leads project over the chest. The lungs are clear for expanded. There is no demonstrated pleural abnormality. Normal size heart. Normal mediastinum and jami. Normal visualized pulmonary arteries. Normal visualized aortic arch and descending thoracic aorta. Chronic deformity of the right clavicle is stable since chest x-ray of 2014. Abnormality of the medial right clavicle evident on cervical spine CT earlier today not clearly visible on x-ray. There is no demonstrated abnormality of the visualized soft tissue structures of the upper abdomen. RAD/Chest 1 View (Portable) IMPRESSION: 1. No airspace consolidation or pleural effusion. 2. Hyperinflation suggesting chronic obstructive airway disease. Electronically Signed: Marvin Hernandez MD at 12:51 EST , Service support ,
--- NOTE | 2018-12-12 11:37 | CT_ITS ---
STUDY: CT BRAIN WITHOUT CONTRAST REASON FOR EXAM: Female, 68 years old. Fall, left scalp laceration RADIATION DOSAGE (If Supplied By Facility): CTDIvol = ( 44.99 ) mGy, DLP = ( 745.49 ) mGycm TECHNIQUE: Transaxial CT imaging of the brain was performed without administration of intravenous contrast material. Individualized dose optimization techniques were used for this CT. COMPARISON: None. FINDINGS: Localized soft tissue swelling and laceration of left lateral periorbital soft tissues with overlying packing material. Normal calvarium. Normal size ventricles and extra-axial spaces for the patient's age. Normal white matter tracts of the cerebral hemispheres. Normal basal ganglia and thalami. Normal brainstem. Normal cerebellum. There is no intracranial hemorrhage. There are no findings of an acute ischemic infarction. There is rightward deviation of the nasal septum. CT/Brain/Head without Contrast IMPRESSION: 1. No acute intracranial hemorrhage or mass effect. 2. Left lateral periorbital soft tissue swelling/laceration without underlying fracture. Electronically Signed: Marvin Hernandez MD at 12:36 EST , Service support ,
--- NOTE | 2018-12-12 11:38 | RAD_ITS ---
STUDY: X-RAY - RIGHT FEMUR REASON FOR STUDY: Female, 68 years old. Fall today, leg pain TECHNIQUE: AP and lateral view(s) of the femur. COMPARISON: None. FINDINGS: There is a transverse comminuted fracture of the distal femoral metaphysis with anterior apical angulation. There is a longitudinal fracture extending into the distal femoral diaphysis. Soft tissue swelling noted. Operative changes of the patella noted. RAD/Femur Min 2 Views IMPRESSION: Distal femur metadiaphyseal fracture. Electronically Signed: Marvin Hernandez MD at 14:51 EST , Service support ,
--- NOTE | 2018-12-12 11:41 | ED.VISSUMM ---
- ER Visit Summary Date of Service: 12/12/18 Chief Complaint: Fall History of Present Illness: The patient is a 68 F mechanical fall 15 minutes prior to arrival. States walking towards driveway tripped over a branch hitting her head. No LOC. No neck or back pain. No anticoagulation medicines. Unable to get up pain distal femur right side near her knee. Had a patellar surgery to the fracture by Dr. Webster last January. Takes Percocets for her leg pains, did take a Percocet this morning. Pain with movement or palpation. No chest pains, states has been having a cough. No vomiting or diarrhea. No allergies. Physical Examination: General: Alert and oriented ?3, no acute distress HEENT: Normocephalic, 1 cm laceration left lateral brow with no active bleeding. No proptosis or entrapment. Moist mucosa membranes Neck: supple, nontender. Cardiovascular: Regular rate and rhythm, no murmurs Respiratory: Normal breath sounds, symmetric, no distress Abdomen: Soft, nontender, nondistended Extremities: Right lower extremity: Negative logroll. There is tender palpation distal femur with no gross deformity. Abrasions bilateral knees with no active bleeding. No edema, pulses intact ?4 Neuro: no focal neurological deficits. Test Results: CT head and neck, no acute process soft tissue swelling. Noted right clavicle fracture age-indeterminate nonhealing per radiology. Right femur x-ray distal spiral fracture of the femur. Chest x-ray negative. Hemoglobin 13.5 creatinine 0.74 INR 1.0 PTT 24. Emergency Department Course and Treatment: Patient mechanical fall. Image studies notes a distal femur fracture. Report from her images head and neck clavicle fracture age-indeterminate she states he has multiple injuries with this, she is nontender in that region. Her laceration was repaired with 2, 6-0 nylon sutures on the left brow. Tetanus updated. She was 87% on room air on arrival was placed on oxygen from head injury protocol her chest x-ray was negative. Given fentanyl for pain control. With her fracture she is placed in plaster splints were stabilizations laterally on her right lower extremity. There is no orthotic coverage currently, discussed with patient, okay with going ointment hospitalized discussed with ED physician Dr. Ordoñez who accepts the transfer as a trauma team. Records and image studies sent with patient, patient updated. Treatment Plan: [] Disposition: Transfer Impression: 1. Closed head injury 2. Facial laceration 3. Closed right distal femur fracture for fear tetanus update 5. Age indeterminate right clavicle fracture This note was generated with [employer] dictation software. It may contain incorrect words, spelling, and punctuation that were not noted in review of the chart prior to signing ED Disposition - Plan for ED Patient: Disposition: [facility] Diagnosis: Closed head injury, Facial laceration, Closed fracture of right distal femur Referrals: Roxi Ritter MD [Primary Care Provider] -
[2018-12-12 11:47] VITALS: O2SAT 95
[2018-12-12 11:55] LABS: Absolute Lymphocyte Count 2.19 X10^3/ul (0.83-4.51); Absolute Neutrophil Count 3.9 X10^3/uL (2.0-7.7); Basophil# 0.02 X10^3/uL; Basophil% 0.3 % (0-1); Eosinophil# 0.05 X10^3/uL; Eosinophils% 0.8 % (0-5); Hematocrit 41.8 % (37-47); Hemoglobin 13.5 g/dl (12.0-15.0); Lymphocyte # 2.19 X10^3/ul (4.0); Lymphocyte % 33.1 % (19-41); Mean Corp Hgb Conc 32.3 g/gl (32-36); Mean Corpuscular Hgb 30.1 pg (27.0-32.0); Mean Corpuscular Volume 93.1 fL (81-99); Mean Platelet Vol. 10.9 fl (6.2-12.0); Monocyte# 0.48 X10^3/uL; Monocyte% 7.3 % (0-10); Neutrophil # 3.87 X10^3/uL (2.7-7.7); Neutrophil % 58.3 % (47-70); Platelet Count 179 K/mm3 (150-450); RBC Distribution Width SD 43.9 fl (35.1-43.9); Red Blood Count 4.49 M/mm3 (4.2-5.4); White Blood Count 6.6 K/mm3 (4.4-11.0)
[2018-12-12 11:56] LABS: POSITIVE COUNT NO; POSITIVE DIFFERENTIAL NO; POSITIVE MORPHOLOGY NO
[2018-12-12] MEDS: 0.9% Normal Saline 1,000 ML 100 ML IV (11:57)
[2018-12-12] MEDS: Lidocaine/Epi/Tetracaine 50 ML 1 APPLIC TOPICAL (11:57)
[2018-12-12] MEDS: fentaNYL 100 MCG/2 ML Ampul 25 MCG IV ×2 (11:57→14:08)
--- NOTE | 2018-12-12 11:57 | NURSING ---
PT,PTT HEMOIZED
[2018-12-12 12:04] LABS: Anion Gap 8 (5-15); BUN 13 mg/dL (7-18); BUN/Creat Ratio 17.5 RATIO (10-20); Calcium,Total 8.8 mg/dL (8.5-10.1); Chloride 103 mmol/L (98-107); Creatinine, Serum 0.74 mg/dL (0.55-1.02); EST Glomerular Filtration Rate 83 mL/min (>60); Est Glom Filt Rate - Afr Amer 100 mL/min (>60); Estimated Creatinine Clearance 47.79 ml/min; Glucose 125 mg/dL (74-106); Potassium 4.1 mmol/L (3.5-5.1); Sodium Level 136 mmol/L (136-145)
[2018-12-12] MEDS: Diphth,Pertuss(Acell),Tet Vac 0.5 ML Vial IM (12:46)
[2018-12-12 13:14] LABS: Partial Thromboplast Time 24.1 Seconds (24.1-36.2); Prothrombin Time (Protime)PT. 12.9 SECONDS (11.7-14.9)
--- NOTE | 2018-12-12 13:35 | NURSING ---
DR YULY ALONZO
[2018-12-12 13:42] VITALS: BP 124/72; PULSE 90; RESP 18; O2SAT 98
--- NOTE | 2018-12-12 13:50 | NURSING ---
CALLED [facility]
[2018-12-12 14:24] VITALS: BP 139/79; PULSE 84; RESP 18; O2SAT 96
== END 2018-12-12 14:18 | disposition short-term general hospital (02) ==
PROVIDERS: Emergency Provider Emergency Medicine; Family Provider Internal Medicine; PCP Internal Medicine
DX: S72.401A Unspecified fracture of lower end of right femur, initial encounter for closed fracture (principal); S42.001A Fracture of unspecified part of right clavicle, initial encounter for closed fracture; S01.111A Laceration without foreign body of right eyelid and periocular area, initial encounter; Z23 Encounter for immunization; K21.9 Gastro-esophageal reflux disease without esophagitis; E11.9 Type 2 diabetes mellitus without complications; F32.9 Major depressive disorder, single episode, unspecified; Z79.84 Long term (current) use of oral hypoglycemic drugs; Z79.891 Long term (current) use of opiate analgesic; Z79.899 Other long term (current) drug therapy; W01.0XXA Fall on same level from slipping, tripping and stumbling without subsequent striking against object, initial encounter; Y93.01 Activity, walking, marching and hiking; Y92.008 Other place in unspecified non-institutional (private) residence as the place of occurrence of the external cause; Y99.8 Other external cause status
CPT/HCPCS: 12011; 70450; 71045; 72125; 73552; 80048; 85025; 85610; 85730; 90715; 96361; 96374; 96376; 99285; J7030; A4216

== ENCOUNTER → 2019-02-03 | Outpatient (CLI) | payer MEDICARE, SELFPAY ==
--- NOTE | 2019-02-03 09:54 | EKG12_ITS ---
Test Reason : Blood Pressure : / mmHG Vent. Rate : 093 BPM Atrial Rate : 093 BPM P-R Int : 146 ms QRS Dur : 120 ms QT Int : 384 ms P-R-T Axes : 080 118 056 degrees QTc Int : 477 ms Normal sinus rhythm Low voltage QRS Right bundle branch block Left posterior fascicular block Bifascicular block Abnormal ECG Confirmed by JOHNNY HOLMAN ([id number]), editor index ROSHAN COLLAZO ([id number]) on 02/03/2019 11:54:55 AM Referred By: OUT DOCTOR Confirmed By:JOHNNY HOLMAN
[2019-02-03 11:56] LABS: Anion Gap 5 (5-15); BUN 17 mg/dL (7-18); BUN/Creat Ratio 30.3 RATIO (10-20); Calcium,Total 9.5 mg/dL (8.5-10.1); Chloride 97 mmol/L (98-107); Creatinine, Serum 0.56 mg/dL (0.55-1.02); EST Glomerular Filtration Rate 115 mL/min (>60); Est Glom Filt Rate - Afr Amer 139 mL/min (>60); Glucose 91 mg/dL (74-106); Potassium 4.3 mmol/L (3.5-5.1); Sodium Level 133 mmol/L (136-145)
[2019-02-03 12:08] LABS: Hemoglobin A1c 6.7 % (4.2-6.3)
== END | disposition home or self-care (01) ==
PROVIDERS: Family Provider Internal Medicine; PCP Internal Medicine
DX: E11.9 Type 2 diabetes mellitus without complications (principal); S72.351A Displaced comminuted fracture of shaft of right femur, initial encounter for closed fracture; T84.84XA Pain due to internal orthopedic prosthetic devices, implants and grafts, initial encounter
CPT/HCPCS: 36415; 80048; 83036; 93005

== ENCOUNTER 2019-05-03 06:14 | Inpatient (IN) | payer MEDICARE, SELFPAY ==
[2019-02-10 09:57] VITALS: BMI 27.4
[2019-05-03] VITALS (21 sets, daily range): BP systolic 120–163; BP diastolic 68–93; PULSE 92–122; RESP 16–20; TEMP 36.1–37.4; O2SAT 92–99; BMI 27.6; BMI 26.5; BMI 26.4
--- NOTE | 2019-05-03 06:21 | EKG12_ITS ---
Test Reason : FALL Blood Pressure : / mmHG Vent. Rate : 095 BPM Atrial Rate : 095 BPM P-R Int : 166 ms QRS Dur : 128 ms QT Int : 398 ms P-R-T Axes : 077 113 045 degrees QTc Int : 500 ms Normal sinus rhythm Right bundle branch block Left posterior fascicular block Bifascicular block Abnormal ECG Confirmed by YOLI MCGARRY, ANITA ([id number]), editor house organ WILLOW GOULD ([id number]) on 05/05/2019 10:44:32 AM Referred By: ARIELLA Confirmed By:ANITA KENT MD
--- NOTE | 2019-05-03 06:22 | RAD_ITS ---
STUDY: X-RAY - PELVIS AND LEFT HIP REASON FOR EXAM: Female, 69 years old. Injury TECHNIQUE: 3 views of the pelvis and hip. COMPARISON: None. FINDINGS: There is a lucency in the basicervical region of the proximal left femur. This is suspicious of a fracture. There are degenerative changes of both hip joint. Both superior and inferior pubic rami are normal RAD/HIP, UNI W/ Pelvis 2-3 Views IMPRESSION: Suspicion of a nondisplaced basicervical fracture of the proximal left femur. Degenerative changes of both hip joints Electronically Signed: Toby Harman MD at 7:45 EDT Tel , Service support ,
--- NOTE | 2019-05-03 06:22 | ED.DCSUM_ITS ---
History of Present Illness Chief Complaint: Fall Informant: Patient Onset: Yesterday Context: Sudden Onset Timing: Continuous Quality: Pain Location: Proximal lateral left thigh and inguinal area Current Severity: Mild Maximum Severity: Severe Worsened by: Any movement Relieved by: Remaining still Associated Symptoms: Inability to ambulate since last evening Narrative: Patient is an elderly woman who was outside walking with her cane. She states she should have been using her walker. She fell. She complained of left hip/groin pain. [facility] She has not been able to walk since the fall. She denied head trauma. She denies nausea or vomiting. She denies neck pain. She denies cardiac or respiratory symptoms. She denies urinary symptoms. Denies black or maroon stool. She is on no anticoagulants. Prior similar symptoms: No Recent Illness/Hospitalization: No - Past Medical History (1) History of type 2 diabetes mellitus Status: Acute (2) Hyperlipidemia Status: Chronic Past Medical History - Allergies and Home Meds Allergies/Adverse Reactions: Allergies No Known Allergies Allergy (Verified 05/03/19 06:21) Primary Care Physician: Roxi Ritter MD [Primary Care Provider] - Prior records reviewed: Yes Surgical History: cholecystectomy, - - Foot surgery - bilateral Lives: With Family Smoking Status: Current every day smoker Alcohol: None Review of Systems General: Denies: Chills, Fever, Sweats Eyes: Denies: Visual changes - bilaterally, Diplopia ENT: Denies: Bilateral ear pain, Rhinorrhea, Sore throat Cardiovascular: Denies: Chest pain, Palpitations Respiratory: Denies: Dyspnea, Cough, Dyspnea on exertion Gastrointestinal: Denies: Abdominal pain, Nausea, Vomiting, Diarrhea, Melena, Hematochezia Genitourinary: Denies: Dysuria, Hematuria, Frequency Musculoskeletal: Reports: Swelling, Extremity Pain. Denies: Myalgias, Arthralgias, Neck pain, Back pain Skin: Denies: Rash, Abrasions, Wounds Neurological: Denies: Headache, Weakness, Numbness Endocrine: Denies: Polyuria, Polydipsia Hematologic: Denies: Easy bruising, Easy bleeding Physical Exam Vital Signs/Narrative: Vital Signs Temp Pulse Resp BP Pulse Ox 05/03/19 06:14 97.8 F 99 18 144/92 H 94 Inital Vital Signs reviewed: Yes General: Well nourished, Well developed, Acute Distress Head: Normocephalic, Atraumatic Eyes: Perrl, EOMI. Negative for: Pale conjunctiva, Scleral icterus ENT: Moist mucous membranes, No rhinorrhea Neck: Supple, Nontender Cardiovascular: Regular rate, Regular rhythm, No murmurs, Normal S1, Normal S2 Respiratory: No distress, CTA bilaterally, Chest nontender Abdomen: Soft, Nontender, Nondistended, Normal bowel sounds, No masses Back: Nontender, Normal Inspection Extremities: Nontender, No edema, - - She is unable to elevate her left lower extremity off the bed. Logrolling causes significant discomfort. There appears to be slight shortening. DP and PT pulses are not palpable. She has stigmata of peripheral arterial disease. Capillary refill is normal. Skin: Normal color, No rash Neurological: Alert, Oriented x3, Cranial nerves II-XII grossly intact, Normal Strength, Normal Sensation. Negative for: Normal Gait Psychological: Normal affect, Normal Mood Diagnostic/Tx/Re-eval Chest X-Ray - ED: Read by ED Physician, - - Single view x-ray of the chest reveals normal cardiac silhouette and mediastinum. There is chronic pulmonary changes noted with hyperaeration. There is no abnormality of the ribs, clavicle or right or left shoulder. Three-view x-ray of the left hip reveals a nondisplaced basicervical fracture on the left. 05/03/19 06:22 HIP, UNI W/ Pelvis 2-3 Views [RAD] Stat 05/03/19 06:38 Xray Chest [Chest 1 View] [RAD] Stat Laboratory Results 05/03/19 05/03/19 06:23 06:23 WBC 7.8 RBC 4.56 Hgb 13.5 Hct 39.9 MCV 87.5 MCH 29.6 MCHC 33.8 RDW Std Deviation 43.4 RDW Coeff of Sandy 13.4 Plt Count 166 MPV 10.6 Sodium 137 Potassium 3.7 Chloride 97 L Carbon Dioxide 29.0 Anion Gap 11 BUN 18 Creatinine 0.65 Estim Creat Clear Calc 47.14 Est GFR (MDRD) Af Amer 117 Est GFR (MDRD) Non-Af 97 BUN/Creatinine Ratio 27.7 H Glucose 212 H Calcium 9.5 Coags are pending. This will not change patient's disposition which is admission. - Rhythm Strip Rhythm Strip: Sinus Rhythm Rate: 95 Ectopy: None - EKG Initial EKG Interpretation: Sinus Rhythm - Ventricular rate is 95. OR interval is 106 6 ms. QS duration is 128. There is evidence of a right bundle branch block as well as left posterior fascicular block. This is unchanged from EKG dated February 03, 2019. Prior: Unchanged - Medical Decision Making With history of fall and inability to walk for 12 hours and pain complaining of left hip pain in the groin area and any movement causes worsening pain concern patient has a fractured left hip. Will obtain baseline blood work. If x-ray does reveal fracture will add chest x-ray, coags and type and screen patient. With no history of head trauma and on no anticoagulant imaging of the head is not indicated. Imaging of the neck is not indicated either. She received 4 mg of Zofran and 4 mg of morphine for her discomfort. Dr. Jean-Paul Chavez who is on-call for orthopedics was paged. Hospitalist was paged as well for admission for left femoral neck fracture, basicervical ED Disposition - Plan for ED Patient: Disposition: Acute Care Hospital [facility] Diagnosis: Basicervical fracture of left femur Referrals: Roxi Ritter MD [Primary Care Provider] -
[2019-05-03] MEDS: Morphine 4 MG/ML Syringe IV ×4 (06:31→14:01)
[2019-05-03] MEDS: Ondansetron 4 MG/2 ML Vial IV (06:31)
[2019-05-03 06:33] LABS: Hematocrit 39.9 % (37-47); Hemoglobin 13.5 g/dL (12.0-15.0); Mean Corp Hgb Conc 33.8 g/dL (32-36); Mean Corpuscular Hgb 29.6 pg (27.0-32.0); Mean Corpuscular Volume 87.5 fL (81-99); Mean Platelet Vol. 10.6 fl (6.2-12.0); Platelet Count 166 K/mm3 (150-450); RBC Distribution Width CV 13.4 % (11.6-14.6); RBC Distribution Width SD 43.4 fl (35.1-43.9); Red Blood Count 4.56 M/mm3 (4.2-5.4); White Blood Count 7.8 K/mm3 (4.4-11.0)
[2019-05-03] MEDS: 0.9% Normal Saline 1,000 ML 150 ML IV ×3 (06:36→20:00)
--- NOTE | 2019-05-03 06:38 | RAD_ITS ---
STUDY: X-RAY CHEST REASON FOR EXAM: Female, 69 years old. Preop TECHNIQUE: 1 view COMPARISON: December 12, 2018 FINDINGS: The lungs are clear and expanded. There is no demonstrated pleural abnormality. Normal size heart. Normal mediastinum and jami. Normal visualized pulmonary arteries. Normal visualized aortic arch and descending thoracic aorta. Degenerative changes of the thoracic spine Normal visualized ribs, clavicles, and shoulders. There is no demonstrated abnormality of the visualized soft tissue structures of the upper abdomen. RAD/Chest 1 View IMPRESSION: Normal x-ray examination of the chest. No acute findings in the lungs Electronically Signed: Toby Harman MD at 7:40 EDT Tel , Service support ,
[2019-05-03 06:49] LABS: Anion Gap 11 (5-15); BUN 18 mg/dL (7-18); BUN/Creat Ratio 27.7 RATIO (10-20); Calcium,Total 9.5 mg/dL (8.5-10.1); Chloride 97 mmol/L (98-107); Creatinine, Serum 0.65 mg/dL (0.55-1.02); EST Glomerular Filtration Rate 97 mL/min (>60); Est Glom Filt Rate - Afr Amer 117 mL/min (>60); Estimated Creatinine Clearance 47.14 ml/min; Glucose 212 mg/dL (74-106); Potassium 3.7 mmol/L (3.5-5.1); Sodium Level 137 mmol/L (136-145)
[2019-05-03 07:33] LABS: Prothrombin Time (Protime)PT. 13.2 SECONDS (11.7-14.9)
[2019-05-03 07:34] LABS: Partial Thromboplast Time 25.4 Seconds (24.1-36.2)
[2019-05-03 09:55] LABS: Hemoglobin A1c 7.7 % (4.2-6.3)
--- NOTE | 2019-05-03 10:02 | PCM.HP.STD ---
Problem List (1) Left posterior fascicular block (LPFB) Status: Chronic (2) COPD (chronic obstructive pulmonary disease) Status: Suspected (3) Tobacco dependence Status: Chronic (4) Diabetes mellitus type 2 in nonobese Status: Chronic (5) Basicervical fracture of left femur Status: Acute (6) Hyperlipidemia Status: Chronic (7) Right bundle branch block Status: Chronic Comment: bifascicular block (8) Abnormal EKG Status: Chronic Comment: RBBB, LPHB (9) Chronic back pain Status: Chronic (10) Depression Status: Chronic History of Present Illness Date of Admission: 05/03/19 Chief Complaint: fell on the left side and has a non-displaced fracture of the L hip The patient is a 69 year old F past medical history of diabetes mellitus type 2, chronic back pain, tobacco dependence, upper lipidemia, bifascicular block with right bundle branch block and left posterior hemiblock and suspected COPD who presented to the emergency department at [facility] on 05/03/2019 complaining of left hip pain. She fell at home on her left side and when she moves the pain increases. X-ray in the emergency room revealed a nondisplaced fracture of the left hip. No signs of presentation to the emergency room temperature 97.8, pulse rate 99, blood pressure 144/92, respiratory rate 18 and she is 94% saturated on room air. CBC was within normal limits. PT and PTT are normal. A BMP is unremarkable with the exception of an elevated BUN/creatinine ratio at 27.7. And a blood sugar was 212 and the hemoglobin A1c of 7.7. Calcium is 9.5 but no albumin has been drawn yet. Chest x-ray shows hyperinflation of vertical heart and no evidence of congestive heart failure, pleural effusions or infiltrates. She is being admitted to the hospital with a nondisplaced fracture of the left hip and will be kept n.p.o. for surgery this afternoon with Dr. Chavez. Has had a DEXA in the past but not for many years. She is on a vitamin D supplement but no calcium. Past Medical History Past Medical History (Chronic Problems): Chronic Problems (Last Reviewed 02/10/19 @ 10:26 by Lake Schultz MD) Left posterior fascicular block (LPFB) (Chronic) Tobacco dependence (Chronic) Diabetes mellitus type 2 in nonobese (Chronic) Chronic back pain (Chronic) Depression (Chronic) Hyperlipidemia (Chronic) Right bundle branch block (Chronic) bifascicular block Abnormal EKG (Chronic) RBBB, LPHB Medical History: Medical History (Last Reviewed 02/10/19 @ 10:26 by Lake Schultz MD) Hyperlipidemia (Chronic) E78.5 Right bundle branch block (Chronic) I45.10 bifascicular block Abnormal EKG (Chronic) R94.31 RBBB, LPHB Depression F32.9 GERD (gastroesophageal reflux disease) K21.9 Type 2 diabetes mellitus without complication E11.9 Allergies No Known Allergies Allergy (Verified 05/03/19 06:21) Home Medications: Ambulatory Orders Medication Instructions Recorded Citalopram [Celexa] 40 mg PO DAILY 02/26/15 metFORMIN HCl [Glucophage] 1,000 mg PO BID 02/26/15 Potassium Chloride 20 meq PO DAILY 12/12/18 clotrimazole-betamethasone 1 1 applic TOPICAL DAILY 90 Days #90 02/05/19 %-0.05 % topical cream g ergocalciferol (vitamin D2) 50,000 50,000 unit PO QWEEK 02/05/19 unit capsule gabapentin 400 mg capsule 400 mg PO TID PRN 02/05/19 omeprazole 20 mg capsule,delayed 20 mg PO BID cap 02/05/19 release Surgical History: Surgical History (Last Reviewed 02/10/19 @ 10:26 by Lake Schultz MD) History of open reduction and internal fixation (ORIF) procedure Z98.890 right patella fracture H/O excision of ganglion cyst Z98.890 multiple times from feet History of cholecystectomy Z90.49 History of hammer toe correction Z98.890, Z87.39 bilaterally History of loop recorder Z98.890 implant and removal History of tubal ligation Z98.51 Surgical History: cholecystectomy, - - Foot surgery - bilateral Psychiatric History: Depression Lives: With Family Smoking Status: Current every day smoker Tobacco Use: Cigarettes Alcohol: None Review of Systems Constitutional: Denies: Chills, Fever, Weight Change Eyes: Denies: Blurred vision HEENT: Denies: Head Aches, Sinus Congestion, Sinus Drainage Cardiovascular: Reports: Edema - When she stands or sits too long, resolves overnight when her legs are elevated. Denies: Chest Pain, Light Headedness, Orthopnea, Palpitations, Syncope Respiratory: Denies: Cough, Shortness of breath at rest, Shortness of breath upon exertion, Sputum production Gastrointestinal: Denies: Abdominal Pain, Nausea, Vomiting Genitourinary: Denies: Dysuria Musculoskeletal: Denies: Joint Pain, Joint Tenderness Skin: Denies: Rash, Wounds Neurological: Denies: Numbness, Tingling, Focal weakness Psychiatric: Reports: Depression. Denies: Anxiety, Homicidal Ideations, Suicidal Ideations Hematologic/ Lymphatic: Denies: Easy Bruising, Easy Bleeding, Hx of blood clot VTE Information - Inpt Only VTE Present on Admission: No VTE Mechan Device Prophylaxis: SCD's, Knee High JOSE Hose VTE Pharm Prophylaxis ordered?: No Reason prophylaxis not ordered:: Medical Contraindication - held for surgery this afternoon Patient Problems: Active and Suspected Problems (Last Reviewed 02/10/19 @ 10:26 by Lake Schultz MD) Basicervical fracture of left femur (Acute) COPD (chronic obstructive pulmonary disease) (Suspected) - Physical Exam General: Alert, Oriented x3, Cooperative, No apparent distress, Well developed, Well nourished HEENT: Atraumatic, PERRLA, EOMI, Normocephalic Oral: No Gingival or Mucosal Lesions/ Ulcerations, Dry Mucosa Neck: Supple, No JVD, Negative Carotid Bruits, No Nodes, No Nuchal Rigidity, Trachea Midline Lungs: Clear to auscultation, Diminished, - - She has increased AP diameter of the chest Cardiovascular: Regular rate, Regular Rhythm, Normal S1, Normal S2, No murmurs, No Gallop, - - Heart sounds are distant Abdomen: Bowel Sounds Present, Soft, Non Tender, Non-Distended Extremities: No clubbing, No cyanosis - can not evaluate at this time due to fingernail slovenian, No edema, Capillary Refill Less than 3 Seconds, Diminished Peripheral Pulses, - - no hair growth on the toes Skin: No rashes, No breakdown Musculoskeletal: No Muscle Wasting, - - pain with any movement of the LLE and even at rest with no movemnt. she has intact sensation to the LLE....equal to the right. Decreased pulses Neurological: Cranial nerves II-XII grossly intact, Neuro grossly intact Psych/Mental Status: Normal Affect, Appropriate Vital Signs Temp Pulse Resp BP Pulse Ox 97.0 F L 103 H 18 146/93 H 93 05/03/19 08:18 05/03/19 08:18 05/03/19 08:18 05/03/19 08:18 05/03/19 08:18 Oxygen Flow Rate (L/min) 2 Oxygen Delivery Method Nasal Cannula Weight: 154 lb 4.8 oz Body Mass Index (BMI) 26.4 Finger Stick Blood Glucose 162 Laboratory Tests Past 24 Hrs 05/03/19 05/03/19 05/03/19 06:23 06:23 06:23 WBC 7.8 RBC 4.56 Hgb 13.5 Hct 39.9 MCV 87.5 MCH 29.6 MCHC 33.8 RDW Std Deviation 43.4 RDW Coeff of Sandy 13.4 Plt Count 166 MPV 10.6 PT 13.2 INR 1.0 APTT 25.4 Sodium 137 Potassium 3.7 Chloride 97 L Carbon Dioxide 29.0 Anion Gap 11 BUN 18 Creatinine 0.65 Estim Creat Clear Calc 47.14 Est GFR (MDRD) Af Amer 117 Est GFR (MDRD) Non-Af 97 BUN/Creatinine Ratio 27.7 H Glucose 212 H Hemoglobin A1c Calcium 9.5 Blood Type Antibody Screen 05/03/19 05/03/19 06:23 07:20 WBC RBC Hgb Hct MCV MCH MCHC RDW Std Deviation RDW Coeff of Sandy Plt Count MPV PT INR APTT Sodium Potassium Chloride Carbon Dioxide Anion Gap BUN Creatinine Estim Creat Clear Calc Est GFR (MDRD) Af Amer Est GFR (MDRD) Non-Af BUN/Creatinine Ratio Glucose Hemoglobin A1c 7.7 H Calcium Blood Type AB NEGATIVE Antibody Screen NEGATIVE Assessment/Plan All Active Problems (Last Reviewed 02/10/19 @ 10:26 by Lake Schultz MD) Basicervical fracture of left femur (Acute) Impressions 1. Nondisplaced fracture of the left hip 2. Bifascicular block with a right bundle branch block and left posterior hemiblock 3. Diabetes mellitus type 2-not adequately controlled, hemoglobin A1c is 7.7 4. Hyperlipidemia 5. Chronic back pain with radiculopathy-on gabapentin 6. Suspected COPD with hyperinflation on chest x-ray and increased AP diameter of the chest 7. Chronic depression-on citalopram 8. Tobacco dependence-started smoking at age 17 9. Dehydration with elevated BUN/creatinine ratio 10. Suspected osteoporosis Keep n.p.o. in preparation for left hip repair with Dr. Chavez this afternoon Hold oral hypoglycemics and start the patient on every 4 hours blood sugars with sliding scale insulin coverage Since she has a bifascicular block will check EKG in the recovery room Would recommend that she have PFTs as an outpatient due to increased AP diameter of the chest, hyperexpansion on chest x-ray and long smoking history Smoking cessation counseling was given Avoid beta-blockers and calcium channel blockers that block the AV node in light of bifascicular block Incentive spirometry Initiate work-up for secondary causes of osteoporosis Will need a DEXA as an outpatient going forward Code Visit Inpatient E&M: 30965 Init Hosp L3
[2019-05-03 10:21] LABS: Phosphorus 3.4 mg/dL (2.5-4.9)
[2019-05-03 10:22] LABS: AST(SGOT) 17 U/L (15-37); Alanine Aminotransfer ALT/SGPT 28 U/L (13-56); Alkaline Phosphatase 99 U/L (45-117); Globulin 3.7 g/dL (2.2-4.2); Protein, Total 7.7 g/dL (6.4-8.2)
[2019-05-03] MEDS: 0.9% NaCl Peripheral Flush Adult/Peds IV ×2 (10:56→14:02)
--- NOTE | 2019-05-03 11:05 | CASEMGMT ---
Addendum entered by Carmella Potter 05/03/19 13:58: GIBSON received call from Alyssa with [facility] stating Dr. Royal will review pt once pt has surgery and determine if [facility] is appropriate but she will plan on taking pt on [facility]. Plan: [facility] pending acceptance Original Note: Social Work Note Charge Nurse updated this worker that pt is a hip fracture and is already requesting to go to [facility] at [facility] at discharge. GIBSON placed a call to Alyssa with [facility] and provided referral. Plan: [facility] pending acceptance Carmella Potter [employer], [employer]
[2019-05-03 14:55] LABS: Bedside Glucose 150 mg/dL (70-110)
--- NOTE | 2019-05-03 15:49 | PCM.CONS.GEN ---
Reason for Consult Date of Consultation: 05/03/19 Reason for Consultation: left hip pain. requested by dr sherwood History of Present Illness: The patient is a 69 year old F with chronic back pain and a right foot drop presents today with left hip pain after a fall. Patient notes that yesterday evening she was walking around her driveway when her right toes caught on the ground and she had a mechanical fall. She notes that this happened before. She had severe left hip pain 10 out of 10 at that time. Currently is a 9 out of 10. Pain is worse with motion better with immobilization. She was unable to bear weight because of the hip pain. It is a throbbing aching pain in her groin. Patient presented to the emergency department early this morning it was noted to have a basicervical peritrochanteric fracture. Patient reports she is a smoker for 50 years half pack a day. She lives at home with her son and does use a cane or a walker for ambulation. Past Medical History Past Medical History (Chronic Problems): Chronic Problems (Last Reviewed 02/10/19 @ 10:26 by Lake Schultz MD) Left posterior fascicular block (LPFB) (Chronic) Tobacco dependence (Chronic) Diabetes mellitus type 2 in nonobese (Chronic) Chronic back pain (Chronic) Depression (Chronic) Hyperlipidemia (Chronic) Right bundle branch block (Chronic) bifascicular block Abnormal EKG (Chronic) RBBB, LPHB Medical History: Medical History (Last Reviewed 02/10/19 @ 10:26 by Lake Schultz MD) Hyperlipidemia (Chronic) E78.5 Right bundle branch block (Chronic) I45.10 bifascicular block Abnormal EKG (Chronic) R94.31 RBBB, LPHB Depression F32.9 GERD (gastroesophageal reflux disease) K21.9 Type 2 diabetes mellitus without complication E11.9 Allergies No Known Allergies Allergy (Verified 05/03/19 06:21) Home Medications: Ambulatory Orders Medication Instructions Recorded Citalopram [Celexa] 40 mg PO DAILY 02/26/15 metFORMIN HCl [Glucophage] 1,000 mg PO BID 02/26/15 Potassium Chloride 20 meq PO DAILY 12/12/18 clotrimazole-betamethasone 1 1 applic TOPICAL DAILY 90 Days #90 02/05/19 %-0.05 % topical cream g ergocalciferol (vitamin D2) 50,000 50,000 unit PO QWEEK 02/05/19 unit capsule gabapentin 400 mg capsule 400 mg PO TID PRN 02/05/19 omeprazole 20 mg capsule,delayed 20 mg PO BID cap 02/05/19 release Surgical History: Surgical History (Last Reviewed 02/10/19 @ 10:26 by Lake Schultz MD) History of open reduction and internal fixation (ORIF) procedure Z98.890 right patella fracture H/O excision of ganglion cyst Z98.890 multiple times from feet History of cholecystectomy Z90.49 History of hammer toe correction Z98.890, Z87.39 bilaterally History of loop recorder Z98.890 implant and removal History of tubal ligation Z98.51 Surgical History: cholecystectomy, - - Foot surgery - bilateral Psychiatric History: Depression Lives: With Family Smoking Status: Current every day smoker Tobacco Use: Cigarettes Alcohol: None Drugs: None Review of Systems Constitutional: Denies: Chills, Fever, Weight Change HEENT: Denies: Head Aches, Sinus Congestion, Sinus Drainage Cardiovascular: Denies: Chest Pain, Palpitations Respiratory: Denies: Cough, Shortness of breath at rest, Sputum production Gastrointestinal: Denies: Abdominal Pain, Nausea, Vomiting Genitourinary: Denies: Dysuria Musculoskeletal: Reports: Joint Pain, Joint Tenderness Skin: Denies: Rash, Wounds Neurological: Denies: Numbness, Tingling, Focal weakness Psychiatric: Denies: Anxiety, Depression, Homicidal Ideations, Suicidal Ideations Hematologic/ Lymphatic: Denies: Easy Bruising, Easy Bleeding Patient Problems: Active and Suspected Problems (Last Reviewed 02/10/19 @ 10:26 by Lake Schultz MD) Basicervical fracture of left femur (Acute) COPD (chronic obstructive pulmonary disease) (Suspected) Objective: Left hip x-ray show a nondisplaced basicervical peritrochanteric femur fracture - Physical Exam General: Alert, Oriented x3, Cooperative Extremities: - - Left lower extremity: Skin clean, dry, and intact. Limb is shortened and externally rotated Motor is intact dorsiflexion, EHL and plantar flexion. Sensation is intact to light touch saphenous, catalina,l superficial peroneal, deep peroneal and tibial distributions. Calves are soft and supple. Previous scar on dorsum of right great toe for bunion correction. Vital Signs Temp Pulse Resp BP Pulse Ox 98.2 F 105 H 18 141/74 H 94 05/03/19 14:29 05/03/19 14:29 05/03/19 14:29 05/03/19 14:29 05/03/19 14:29 Oxygen Flow Rate (L/min) 2 Oxygen Delivery Method Nasal Cannula Weight: 154 lb 1.65 oz Body Mass Index (BMI) 26.4 Finger Stick Blood Glucose 162 Intake and Output for Last 24 Hours 05/01/19 05/02/19 05/03/19 23:59 23:59 23:59 Intake Total 605 / 605 Output Total 225 / 225 Balance 380 / 380 Laboratory Tests Past 24 Hrs 05/03/19 05/03/19 05/03/19 06:23 06:23 06:23 WBC 7.8 RBC 4.56 Hgb 13.5 Hct 39.9 MCV 87.5 MCH 29.6 MCHC 33.8 RDW Std Deviation 43.4 RDW Coeff of Sandy 13.4 Plt Count 166 MPV 10.6 PT 13.2 INR 1.0 APTT 25.4 Sodium 137 Potassium 3.7 Chloride 97 L Carbon Dioxide 29.0 Anion Gap 11 BUN 18 Creatinine 0.65 Estim Creat Clear Calc 47.14 Est GFR (MDRD) Af Amer 117 Est GFR (MDRD) Non-Af 97 BUN/Creatinine Ratio 27.7 H Glucose 212 H Hemoglobin A1c Calcium 9.5 Phosphorus Total Bilirubin Direct Bilirubin AST ALT Alkaline Phosphatase Total Protein Albumin Globulin Vitamin D 25-Hydroxy Vit D 1,25-Dihydroxy PTH Intact Blood Type Antibody Screen 05/03/19 05/03/19 05/03/19 06:23 06:23 06:23 WBC RBC Hgb Hct MCV MCH MCHC RDW Std Deviation RDW Coeff of Sandy Plt Count MPV PT INR APTT Sodium Potassium Chloride Carbon Dioxide Anion Gap BUN Creatinine Estim Creat Clear Calc Est GFR (MDRD) Af Amer Est GFR (MDRD) Non-Af BUN/Creatinine Ratio Glucose Hemoglobin A1c 7.7 H Calcium Phosphorus Total Bilirubin 0.60 Direct Bilirubin 0.20 AST 17 ALT 28 Alkaline Phosphatase 99 Total Protein 7.7 Albumin 4.0 Globulin 3.7 Vitamin D 25-Hydroxy Vit D 1,25-Dihydroxy PTH Intact Pending Blood Type Antibody Screen 05/03/19 05/03/19 05/03/19 06:23 06:23 06:23 WBC RBC Hgb Hct MCV MCH MCHC RDW Std Deviation RDW Coeff of Sandy Plt Count MPV PT INR APTT Sodium Potassium Chloride Carbon Dioxide Anion Gap BUN Creatinine Estim Creat Clear Calc Est GFR (MDRD) Af Amer Est GFR (MDRD) Non-Af BUN/Creatinine Ratio Glucose Hemoglobin A1c Calcium Phosphorus 3.4 Total Bilirubin Direct Bilirubin AST ALT Alkaline Phosphatase Total Protein Albumin Globulin Vitamin D 25-Hydroxy Pending Vit D 1,25-Dihydroxy Pending PTH Intact Blood Type Antibody Screen 05/03/19 07:20 WBC RBC Hgb Hct MCV MCH MCHC RDW Std Deviation RDW Coeff of Sandy Plt Count MPV PT INR APTT Sodium Potassium Chloride Carbon Dioxide Anion Gap BUN Creatinine Estim Creat Clear Calc Est GFR (MDRD) Af Amer Est GFR (MDRD) Non-Af BUN/Creatinine Ratio Glucose Hemoglobin A1c Calcium Phosphorus Total Bilirubin Direct Bilirubin AST ALT Alkaline Phosphatase Total Protein Albumin Globulin Vitamin D 25-Hydroxy Vit D 1,25-Dihydroxy PTH Intact Blood Type AB NEGATIVE Antibody Screen NEGATIVE POC Glucose 05/03/19 14:40 POC Glucose 150 H Assessment/Plan All Active Problems (Last Reviewed 02/10/19 @ 10:26 by Lake Schultz MD) Basicervical fracture of left femur (Acute) Left peritrochanteric basicervical proximal femur fracture Natural history of the disease process and treatment options were discussed with the patient. At this time we discussed nonoperative versus operative treatment. I recommended cephalo-medullary nail based on the fracture pattern. Risks and benefits of the procedure were discussed the patient including but not limited to blood loss, DVTs, PEs, neurovascular damage, infection, general risk of anesthesia, nonunion, malunion and implant failure. Patient demonstrates an understanding and does understand the loss of life certainly complication that could occur. Patient is able to sign informed consent has been medically cleared for surgery. She is n.p.o. 2 g of Ancef will be administered prior to incision. We will proceed with surgery today. [facility] Office:
--- NOTE | 2019-05-03 16:06 | RAD_ITS ---
STUDY: X-RAY - PELVIS AND LEFT HIP REASON FOR EXAM: Female, 69 years old. Fluoroscopic guided intramedullary rodding TECHNIQUE: 8 fluoroscopic guided views of the pelvis and hip. 32.9 seconds of fluoroscopic time utilized. COMPARISON: May 03, 2019 FINDINGS: 8 fluoroscopic guided images were submitted during intraoperative intramedullary rodding of left hip fracture.. RAD/Hip Min 2 Views (Portable) IMPRESSION: Fluoroscopic guided open reduction internal fixation of left hip fracture Electronically Signed: Anil Stanford MD at 17:05 EDT , Service support ,
--- NOTE | 2019-05-03 17:17 | OP.PCM_ITS ---
Report of Operation Date of Procedure: 05/03/19 Pre-Operative Diagnosis: Left hip peritrochanteric fracture Post-Operative Diagnosis: Left hip peritrochanteric fracture Surgery/Procedure Performed:: Cephalo-medullary nail left hip Description of Surgical Findings:: Stable hip well reduced food and beverage service manager: None Type of Anesthesia:: General Anesthesiologist: Jaylon Chatterjee Special Medications: 2 g Ancef Estimated Blood Loss (mL): 200 Fluids Replaced: 300 mL crystalloid Description of Procedure: Components used: 1. [employer] InterTAN nail short 125 degree neck angle 2. [employer] InterTAN lag screw 90mm 3. [employer] 32.5 millimeter interlocking screw Brief history operative indications: 59-year-old female who had a mechanical fall and sustained a nondisplaced peritrochanteric hip fracture. After extensive discussion including risk and benefits which include but are not limited to blood loss, PEs, DVTs, neurovascular damage, nonunions, malunions and screw cut out patient has elected to proceed with a left cephalo-medullary nail. Procedure: On the date of the procedure the patient's L hip was marked in the preoperative area and patient was taken back to the operating room. Anesthetic was administered and patient was transferred to the table were all bony prominence identified well-padded and the ipsilateral arm was placed across the chest. Patient was then translated down to the perineal post and the operative leg was placed in the boot while the nonoperative leg was lowered and secured. The operative leg was placed in traction and internal rotation and live fluoroscopy was used to verify adequate reduction. The operative leg was then prepped in a sterile fashion with chlorhexidine while the surgeon scrubbed. Upon reentering the room the operative extremity was draped in the standard orthopedic fashion. Skin incision was marked and a timeout was called. Everyone agreed upon the side, the site, the procedure be performed, patient's identity, and antibiotics given. Skin incision was made and the position of the entry guidepin was verified using live fluoroscopy. Once we were satisfied with our position the pin was advanced in the soft tissue protector was placed over the pin. The entry reamer was then advanced into the proximal portion of the femur. a [employer] InterTAN short hip nail was selected. The nail was then attached to the superintendent quarry and inserted into the intramedullary canal. The appropriate depth was verified and the skin incision for the lag screw was made. The lag screw guidepin was then placed under live fluoroscopy and when a satisfactory position was obtained the length of the screw was measured and the standard technique to drill for the lag screws was performed. The anti-rotation bar was used. At this time a 90 mm lag screw was selected with its corresponding compression screw. The lag screw was then passed and traction was left off the leg. The compression screw was then passed and the fracture was compressed. The final position of the lag screw was verified under fluoroscopy. Attention was then turned to the distal portion of the nail and the guide was used to place the the distal interlocking screw and a 32.5mm distal interlocking screw was placed using this technique. Live fluoroscopy was used to verify the position of the interlocking screw and the final position of the hip components. Once we were satisfied with our positioning the wounds were copiously irrigated out with normal saline skin was closed with 2-0 Vicryl and susan for final skin closure. A sterile dressing was placed with Xeroform. Patient was then awakened by anesthesia transferred from the fracture table back to their hospital bed and transferred to the PACU for recovery. Postoperative plan: Patient will be weight-bear as tolerated. Xarelto for 2 weeks for DVT proph ylaxis with knee-high stockings. Follow up in the office in 2 weeks. Grafts/Implants Used: [employer] short nail - Complications None - Admit VTE Documentation VTE Present on Admission: No VTE Mechan Device Prophylaxis: SCD's, Thigh High JOSE Hose VTE Pharm Prophylaxis ordered?: Yes
--- NOTE | 2019-05-03 17:30 | RAD_ITS ---
STUDY: X-RAY - PELVIS AND LEFT HIP REASON FOR EXAM: Female, 69 years old. Postop TECHNIQUE: 3 views of the pelvis and hip. COMPARISON: May 03, 2019 FINDINGS: Postsurgical changes status post open reduction internal fixation of left femoral neck fracture with fracture fragments in anatomic alignment and position. There are degenerative changes of the hip joint.. RAD/HIP, UNI W/ Pelvis 2-3 Views IMPRESSION: Status post open reduction internal fixation of left femoral neck fracture Electronically Signed: Anil Stanford MD at 21:54 EDT , Service support ,
[2019-05-03 18:01] LABS: Bedside Glucose 188 mg/dL (70-110)
--- NOTE | 2019-05-03 18:20 | SUR.PHASEI ---
Addendum entered by Lynn Villarreal 05/03/19 18:55: DR HAZEL SAW IN PACU, ORDERED TO START 500 ML IVF BOLUS, MAY TRANSFER BACK TO MS3 ON O2 AT 5 L/MIN. EKG REVIEWED, TROPONIN PENDING. Original Note: ON ARRIVAL TO PACU, HR 102, NOW 115-120'S SUSTAINED, O2 AT 5 L/MIN, UNABLE TO WEAN, RESTING COMFORTABLY. OCCAS MOIST COUGH BUT DENIES ANY DIFFICULTY BREATHING, NO SHORTNESS OF BREATH, NO CHEST PAIN. HAS SUSPECTED BUT UNDIAGNOSED COPD, IS A LONG-TERM SMOKER, DIABETIC. PER DR RODRÍGUEZ, GET STAT EKG AND TROPONIN, CONTACT HOSPITALIST TO EVAL AND ADVISE, WILL HAVE DORIE CAPONE CRNA, TO EVAL. HOSPITALIST PAGED VIA THE CARD GRINDER HELPER, DR MCKENNA RETURNED PAGE AND REFERRED TO DR HAZEL WHO STATES SHE WILL COME TO PACU TO EVALUATE.
--- NOTE | 2019-05-03 18:29 | EKG12_ITS ---
Test Reason : Blood Pressure : / mmHG Vent. Rate : 121 BPM Atrial Rate : 121 BPM P-R Int : 152 ms QRS Dur : 132 ms QT Int : 328 ms P-R-T Axes : 070 137 013 degrees QTc Int : 465 ms Sinus tachycardia Right bundle branch block Left posterior fascicular block Bifascicular block Abnormal ECG When compared with ECG of 03-FEB-2019 10:06, ST no longer elevated in Inferior leads ST now depressed in Anterior leads T wave inversion now evident in Inferior leads Confirmed by JOHNNY HOLMAN ([id number]), online content editor WILLOW GOULD ([id number]) on 05/07/2019 8:48:37 AM Referred By: Confirmed By:JOHNNY HOLMAN
--- NOTE | 2019-05-03 18:51 | NURSING ---
BLOOD GLUCOSE CHECKED IN PACU - SEE RESULTS.
[2019-05-03] MEDS: Lactated Ringers 500 ML 999 ML IV (19:00)
[2019-05-03 19:35] LABS: PTHIN 30.3 pg/mL (18.4-80.1)
--- NOTE | 2019-05-03 19:41 | PCM.PN.BLA ---
Progress Note Patient was seen and examined in the recovery room postoperatively. Heart rate has been in the 120s and patient is 92 to 97% saturated on a 5 L nasal cannula. She is sleepy but easily arouses. She denies chest pain and also denies shortness of breath. She is not tachypneic. Denies palpitations. Mucous membranes are dry Lungs-clear to auscultation anterior and lateral Heart-regular with increased heart rate, no gallop. No peripheral edema EKG shows sinus tachycardia with right bundle branch block and left posterior hemiblock. No significant ST or T wave changes when compared to preoperative EKG. Patient was prescribed a 500 cc bolus and will continue IV fluids overnight. Wean oxygen as tolerated to maintain pulse ox greater than 89%. Labs been ordered for the morning. Change Accu-Cheks to before meals and at bedtime and sliding scale insulin to before meals and at bedtime. Restart oral hypoglycemics when she is able to transition from clear liquids to a diabetic diet. Xarelto 10 mg daily for DVT prophylaxis for the next 1 month.
[2019-05-03 22:05] LABS: Vitamin D,25 Hydroxy 57.1 ng/mL (29.95-100.01)
[2019-05-03] MEDS: Insulin Lispro 100 UNIT/ML INSULN.PEN SC (22:29)
[2019-05-03] MEDS: Famotidine 20 MG Tablet PO (22:30)
[2019-05-03 22:36] LABS: Bedside Glucose 237 mg/dL (70-110)
[2019-05-03] MEDS: Senna/Docusate Sodium 1 Tablet 2 TABLET PO (22:36)
[2019-05-04] VITALS (12 sets, daily range): BP systolic 108–149; BP diastolic 60–94; PULSE 94–112; RESP 16–18; TEMP 36.6–37.4; O2SAT 88–100; BMI 26.5
[2019-05-04] MEDS: Cefazolin 1 GM/50 ML BAG IV ×2 (00:13→09:46)
[2019-05-04] MEDS: 0.9% Normal Saline 1,000 ML 150 ML IV ×3 (02:24→18:36)
[2019-05-04] MEDS: oxyCODONE 5 MG Tablet PO ×4 (02:24→19:45)
[2019-05-04 02:56] LABS: Bedside Glucose 173 mg/dL (70-110)
[2019-05-04 05:39] LABS: Hematocrit 30.3 % (37-47); Hemoglobin 9.9 g/dL (12.0-15.0); Mean Corp Hgb Conc 32.7 g/dL (32-36); Mean Corpuscular Hgb 29.3 pg (27.0-32.0); Mean Corpuscular Volume 89.6 fL (81-99); Mean Platelet Vol. 10.7 fl (6.2-12.0); Platelet Count 120 K/mm3 (150-450); RBC Distribution Width CV 13.6 % (11.6-14.6); Red Blood Count 3.38 M/mm3 (4.2-5.4); White Blood Count 5.6 K/mm3 (4.4-11.0)
[2019-05-04] MEDS: Rivaroxaban 10 MG Tablet PO (06:07)
[2019-05-04] MEDS: Insulin Lispro 100 UNIT/ML INSULN.PEN SC ×4 (06:10→21:16)
[2019-05-04 06:24] LABS: ALB/GLOB Ratio 0.9 RATIO (0.9-2.4); AST(SGOT) 54 U/L (15-37); Alanine Aminotransfer ALT/SGPT 75 U/L (13-56); Albumin, Serum 2.5 g/dL (3.2-5.0); Alkaline Phosphatase 75 U/L (45-117); Anion Gap 7 (5-15); BUN 7 mg/dL (7-18); BUN/Creat Ratio 14.5 RATIO (10-20); Calcium,Total 7.9 mg/dL (8.5-10.1); Chloride 104 mmol/L (98-107); Cholesterol 113 mg/dL (200); Creatinine, Serum 0.48 mg/dL (0.55-1.02); EST Glomerular Filtration Rate 136 mL/min (>60); Est Glom Filt Rate - Afr Amer 165 mL/min (>60); Estimated Creatinine Clearance 47.14 ml/min; Globulin 2.9 g/dL (2.2-4.2); Glucose 151 mg/dL (74-106); High Density Lipoprotein 54 mg/dL; Magnesium 1.5 mg/dL (1.6-2.6); Phosphorus 2.8 mg/dL (2.5-4.9); Potassium 3.7 mmol/L (3.5-5.1); Protein, Total 5.4 g/dL (6.4-8.2); Sodium Level 141 mmol/L (136-145); Triglycerides 66 mg/dL; Very Low Density Lipoprotein 13 mg/dL (5-40)
[2019-05-04 06:25] LABS: Bedside Glucose 164 mg/dL (70-110)
--- NOTE | 2019-05-04 06:39 | PN.ORTHO_ITS ---
Patient Problems: Active and Suspected Problems (Last Reviewed 02/10/19 @ 10:26 by Lake Schultz MD) Basicervical fracture of left femur (Acute) COPD (chronic obstructive pulmonary disease) (Suspected) Subjective: The patient was sitting in bed upon examination. Patient denies any chest pain, shortness of breath, dizziness, lightheadedness, nausea or vomiting, or calf pain. Pain is controlled on medications. No adverse overnight events. Patient is complaining of pain in her left hip but states it is controlled on medications. Patient has been tachycardic ranging from 103-122. Patient has not tachypneic. Patient denies any palpitations at rest. She is currently on telemetry. Objective: Heart rate currently 104 on telemetry, most recent temperature from nursing is 97.9 ?F Patient is able to actively wiggle her toes. Sensation is intact to light touch to saphenous, sural, superficial and deep peroneal, and tibial distribution. Dressing is clean dry and intact. Negative Homans bilaterally, negative signs and symptoms of DVT. - Physical Exam General: Alert, Oriented x3, Cooperative, No apparent distress Vital Signs Temp Pulse Resp BP Pulse Ox 99.3 F H 106 H 16 149/94 H 100 05/04/19 01:30 05/04/19 04:12 05/04/19 01:30 05/04/19 01:30 05/04/19 01:30 Oxygen Flow Rate (L/min) 4 Oxygen Delivery Method Nasal Cannula Weight: 69.9 kg Body Mass Index (BMI) 26.4 Finger Stick Blood Glucose 188 Intake and Output for Last 24 Hours 05/02/19 05/03/19 05/04/19 23:59 23:59 23:59 Intake Total 2605 / 3787 1453 / 1453 Output Total 225 / 525 300 / 300 Balance 2380 / 3262 1153 / 1153 Laboratory Tests Past 24 Hrs 05/03/19 05/03/19 05/03/19 06:23 06:23 06:23 WBC RBC Hgb Hct MCV MCH MCHC RDW Std Deviation RDW Coeff of Sandy Plt Count MPV PT 13.2 INR 1.0 APTT 25.4 Sodium 137 Potassium 3.7 Chloride 97 L Carbon Dioxide 29.0 Anion Gap 11 BUN 18 Creatinine 0.65 Estim Creat Clear Calc 47.14 Est GFR (MDRD) Af Amer 117 Est GFR (MDRD) Non-Af 97 BUN/Creatinine Ratio 27.7 H Glucose 212 H Hemoglobin A1c 7.7 H Calcium 9.5 Phosphorus Magnesium Total Bilirubin Direct Bilirubin AST ALT Alkaline Phosphatase Troponin I Total Protein Albumin Globulin Albumin/Globulin Ratio Triglycerides Cholesterol LDL Cholesterol VLDL Cholesterol HDL Cholesterol Vitamin D 25-Hydroxy Vit D 1,25-Dihydroxy PTH Intact Blood Type Antibody Screen 05/03/19 05/03/19 05/03/19 06:23 06:23 06:23 WBC RBC Hgb Hct MCV MCH MCHC RDW Std Deviation RDW Coeff of Sandy Plt Count MPV PT INR APTT Sodium Potassium Chloride Carbon Dioxide Anion Gap BUN Creatinine Estim Creat Clear Calc Est GFR (MDRD) Af Amer Est GFR (MDRD) Non-Af BUN/Creatinine Ratio Glucose Hemoglobin A1c Calcium Phosphorus 3.4 Magnesium Total Bilirubin 0.60 Direct Bilirubin 0.20 AST 17 ALT 28 Alkaline Phosphatase 99 Troponin I Total Protein 7.7 Albumin 4.0 Globulin 3.7 Albumin/Globulin Ratio Triglycerides Cholesterol LDL Cholesterol VLDL Cholesterol HDL Cholesterol Vitamin D 25-Hydroxy Vit D 1,25-Dihydroxy PTH Intact 30.3 Blood Type Antibody Screen 05/03/19 05/03/19 05/03/19 06:23 06:23 07:20 WBC RBC Hgb Hct MCV MCH MCHC RDW Std Deviation RDW Coeff of Sandy Plt Count MPV PT INR APTT Sodium Potassium Chloride Carbon Dioxide Anion Gap BUN Creatinine Estim Creat Clear Calc Est GFR (MDRD) Af Amer Est GFR (MDRD) Non-Af BUN/Creatinine Ratio Glucose Hemoglobin A1c Calcium Phosphorus Magnesium Total Bilirubin Direct Bilirubin AST ALT Alkaline Phosphatase Troponin I Total Protein Albumin Globulin Albumin/Globulin Ratio Triglycerides Cholesterol LDL Cholesterol VLDL Cholesterol HDL Cholesterol Vitamin D 25-Hydroxy 57.1 Vit D 1,25-Dihydroxy Pending PTH Intact Blood Type AB NEGATIVE Antibody Screen NEGATIVE 05/03/19 05/04/19 05/04/19 18:40 05:26 05:26 WBC 5.6 RBC 3.38 L Hgb 9.9 L Hct 30.3 L MCV 89.6 MCH 29.3 MCHC 32.7 RDW Std Deviation 44.0 H RDW Coeff of Sandy 13.6 Plt Count 120 L MPV 10.7 PT INR APTT Sodium 141 Potassium 3.7 Chloride 104 Carbon Dioxide 30.0 Anion Gap 7 BUN 7 Creatinine 0.48 L Estim Creat Clear Calc 47.14 Est GFR (MDRD) Af Amer 165 Est GFR (MDRD) Non-Af 136 BUN/Creatinine Ratio 14.5 Glucose 151 H Hemoglobin A1c Calcium 7.9 L Phosphorus 2.8 Magnesium 1.5 L Total Bilirubin 0.60 Direct Bilirubin AST 54 H ALT 75 H Alkaline Phosphatase 75 Troponin I < 0.015 Total Protein 5.4 L Albumin 2.5 L Globulin 2.9 Albumin/Globulin Ratio 0.9 Triglycerides 66 Cholesterol 113 LDL Cholesterol 46 VLDL Cholesterol 13 HDL Cholesterol 54 Vitamin D 25-Hydroxy Vit D 1,25-Dihydroxy PTH Intact Blood Type Antibody Screen POC Glucose 05/04/19 05/04/19 05/03/19 06:10 02:52 22:22 POC Glucose 164 H 173 H 237 H 05/03/19 05/03/19 17:56 14:40 POC Glucose 188 H 150 H Medical Necessity - Tobacco Use Smoking Status: Current every day smoker Tobacco Use: Cigarettes Assessment/Plan All Active Problems (Last Reviewed 02/10/19 @ 10:26 by Lake Schultz MD) Basicervical fracture of left femur (Acute) 1. S/P left hip cephalo-medullary nail POD #1 2. Continue Pain Medications: Tylenol and OxyIR 3. DVT Prophylaxis: Xarelto 2 weeks postoperatively 4. PT/OT: Weightbearing as tolerated 5. H & H: 9.9/30.3, asymptomatic 6. Encouraged Incentive Spirometry 7. Continue postoperative medical management per medicine: Patient has been tachycardic with ranging from 103 - 122. Patient is currently on telemetry. She currently denies any chest pain or shortness of breath. Patient is requiring nasal oxygen at 4 L. 8. Disposition: Plan will be for possible discharge to the rehabilitation unit at [facility] pending acceptance. Patient will require 2-week follow-up at [facility] [place] with repeat x-rays and incision check. Continue postoperative pain medication as listed above. Also recommend Xarelto for minimum of 2 weeks postoperatively for DVT prophylaxis. Patient will be weightbearing as tolerated with the left lower extremity with use of a walker.
--- NOTE | 2019-05-04 06:52 | EKG12_ITS ---
Test Reason : TACHYCARDIA Blood Pressure : / mmHG Vent. Rate : 105 BPM Atrial Rate : 105 BPM P-R Int : 154 ms QRS Dur : 132 ms QT Int : 362 ms P-R-T Axes : 072 119 048 degrees QTc Int : 478 ms Sinus tachycardia Right bundle branch block Left posterior fascicular block Bifascicular block Abnormal ECG When compared with ECG of 03-MAY-2019 18:46, MANUAL COMPARISON REQUIRED, DATA IS UNCONFIRMED Confirmed by JOHNNY HOLMAN ([id number]), content editor WILLOW GOULD ([id number]) on 05/07/2019 8:59:00 AM Referred By: ILIR Confirmed By:JOHNNY HOLMAN
[2019-05-04] MEDS: Ensure Surgery 237 ML LIQUID PO ×3 (09:48→16:18)
[2019-05-04] MEDS: Magnesium Oxide 400 MG Tablet PO (11:17)
[2019-05-04] MEDS: Senna/Docusate Sodium 1 Tablet 2 TABLET PO ×2 (11:18→21:16)
[2019-05-04] MEDS: Citalopram 40 MG TABLET PO (11:18)
[2019-05-04] MEDS: Famotidine 20 MG Tablet PO ×2 (11:18→21:16)
[2019-05-04 11:20] LABS: Bedside Glucose 317 mg/dL (70-110)
--- NOTE | 2019-05-04 11:58 | CASEMGMT ---
Social Work Note SW spoke with pt to confirm discharge plans. Pt is agreeable to [facility] at discharge. SW placed a call to [facility]. [facility] will submit for pre-cert. Plan: [facility] pending pre-cert Carmella Potter MSW, ELECTRIC SHOVEL OPERATOR
--- NOTE | 2019-05-04 12:39 | ECHOD_ITS ---
Reason For Study: elevated troponin Procedure This was a 2D Doppler, Color Flow transthoracic echocardiogram. Patient scanned supine due to left sided fractures. The study was technically difficult. Exam performed portable in patient room. Left Ventricle Based upon the 2D echocardiographic images obtained there appears to be grossly normal left ventricular size, wall motion, and systolic function. The estimated ejection fraction is 75 %. No evidence for diastolic dysfunction. Right Ventricle Normal RV size. Normal systolic function. Atria Normal left atrium. Normal right atrium. No doppler evidence for ASD. Mitral Valve There is no mitral annular calcification. Normal mitral valve. Trivial mitral valve insufficiency. Tricuspid Valve Normal tricuspid valve. Trivial tricuspid valve insufficiency. Right ventricular systolic pressure estimated to be 31 mmHg. Aortic Valve The aortic valve is not well visualized. Pulmonic Valve The pulmonic valve is not well visualized. Great Vessels The aortic root is not well visualized. Pericardium/Pleural No pericardial effusion. MMode/2D Measurements & Calculations LVIDd: 3.9 cm IVSd: 0.81 cm LA dimension: 3.0 cm LVIDs: 2.7 cm LVPWd: 0.91 cm FS: 31.4 % LAV(MOD-sp4): 25.6 ml LA A4 area: 11.8 cm2 RA A4 area: 11.4 cm2 Time Measurements MV dec time: 0.15 sec Doppler Measurements & Calculations MV E max irvin: 72.7 cm/sec Lat Peak E' Irvin: 14.2 cm/sec Med Peak E' Irvin: 10.9 cm/sec MV A max irvin: 91.6 cm/sec E/E' lat: 5.1 E/E' med: 6.7 MV E/A: 0.79 MV V2 max: 111.0 cm/sec MV P1/2t max irvin: 74.0 cm/sec Ao V2 max: 165.6 cm/sec MV max P.9 mmHg MV P1/2t: 57.7 msec Ao max P.0 mmHg MV V2 mean: 59.0 cm/sec MV dec slope: 375.5 cm/sec2 MV mean P.7 mmHg MVA(P1/2t): 3.8 cm2 MV V2 VTI: 17.4 cm LV V1 max: 126.9 cm/sec PA V2 max: 105.0 cm/sec TR max irvin: 237.2 cm/sec LV V1 max P.4 mmHg TR max P.5 mmHg Interpretation Summary The study was technically difficult. Based upon the 2D echocardiographic images obtained there appears to be grossly normal left ventricular size, wall motion, and systolic function. The estimated ejection fraction is 75 %. Trivial mitral valve insufficiency. Trivial tricuspid valve insufficiency. Right ventricular systolic pressure estimated to be 31 mmHg. No evidence for diastolic dysfunction. Ordering Physician: Sharonda Bull Referring Physician: Roxi Ritter Performed By: Claude Pradhan RCS
--- NOTE | 2019-05-04 13:00 | CT_ITS ---
STUDY: CTA CHEST REASON FOR EXAM: Female, 69 years old. Hypoxia and tachycardia. RADIATION DOSAGE (If Supplied By Facility): CTDIvol = ( 9.27 ) mGy, DLP = ( 334.96 ) mGycm TECHNIQUE: The examination was performed with the intravenous administration of 100 IV Isovue 370. Post-processing of the angiographic images was performed, with multiplanar reformation and 3D reconstruction. Individualized dose optimization techniques were used for this CT. COMPARISON: Comparison is made with prior chest radiograph done earlier today. FINDINGS: Normal enhancement of the main pulmonary artery and right and left pulmonary arteries. Normal enhancement of the bilateral peripheral pulmonary arteries. There is no demonstrated pulmonary embolism. There is atherosclerotic calcification of the aortic arch with tortuosity. There is no demonstrated aortic dissection. Normal heart and pericardium. There are visualized mediastinal lymph nodes, which are within normal size limits, and with normal morphology. Normal hilar regions. Normal visualized trachea and bronchi. The lungs are well expanded. Minimal degree of increased linear markings at the lung bases slightly more prominent on the right side suggestive of scarring with minimal pleural thickening. Normal chest wall structures. There are degenerative changes of thoracic spine. Normal visualized upper abdomen. CT/CTA Chest W/WO Contrast IMPRESSION: Findings suggest some mild bibasilar scarring with subpleural thickening. There is no evidence of pulmonary embolism. Electronically Signed: Rohit Montes, at 15:14 EDT , Service support ,
--- NOTE | 2019-05-04 13:01 | PN_ITS ---
Patient Problems: Active and Suspected Problems (Last Reviewed 02/10/19 @ 10:26 by Lake Schultz MD) Basicervical fracture of left femur (Acute) COPD (chronic obstructive pulmonary disease) (Suspected) Subjective: Postoperative day #1-status post left hip fracture repair All events of the past 24 hours of been reviewed. Tachycardia persists despite hydration. She is still requiring 4 to 5 L of oxygen to keep the saturation at 90 or above. Saturation dropped into the 80s on 3 L nasal cannula. Denies chest pain, shortness of breath, palpitations, lightheadedness. She did ambulate in the foss with physical therapy and denied shortness of breath with ambulation. Her pain is adequately managed. She gets irritated when we start to talk about suspected COPD and need for home oxygen.....tells me she is not going to wear oxygen at home and she had PFT's and a stress test and extensive testing prior to a recent surgery. She did see Dr. Land but had no echo, no stress test but was cleared for surgery. Last stress test was in 2001. He has had no pulmonary function tests at [facility]. Objective: General: Alert, oriented ?3, cooperative, pleasant and appropriate Neck: Supple, trachea midline, no enlarged cervical nodes, no enlarged supraclavicular nodes Lungs: Clear to auscultation, symmetric chest expansion, not tachypneic, no conversational dyspnea, no accessory muscle use, increased AP diameter of the chest Heart: Regular rate and rhythm, normal S1, normal S2, she has a new soft systolic MM at the LLSB, no gallop, no rub Abdomen: Soft, NT, ND, bowel sounds present Extremities: No clubbing, no peripheral edema, no cyanosis, intact sensation to both feet and both feet are warm to touch. No focal neurologic deficits - Physical Exam Vital Signs Temp Pulse Resp BP Pulse Ox 97.9 F 104 H 16 125/66 H 95 05/04/19 06:50 05/04/19 10:00 05/04/19 06:50 05/04/19 06:50 05/04/19 06:50 Oxygen Flow Rate (L/min) 4.5 Oxygen Delivery Method Nasal Cannula Weight: 154 lb 1.65 oz Body Mass Index (BMI) 26.4 Finger Stick Blood Glucose 188 Intake and Output for Last 24 Hours 05/02/19 05/03/19 05/04/19 23:59 23:59 23:59 Intake Total 2605 / 3787 2439 / 2439 Output Total 225 / 525 900 / 900 Balance 2380 / 3262 1539 / 1539 Laboratory Tests Past 24 Hrs 05/03/19 05/03/19 05/03/19 06:23 06:23 18:40 WBC RBC Hgb Hct MCV MCH MCHC RDW Std Deviation RDW Coeff of Sandy Plt Count MPV Sodium Potassium Chloride Carbon Dioxide Anion Gap BUN Creatinine Estim Creat Clear Calc Est GFR (MDRD) Af Amer Est GFR (MDRD) Non-Af BUN/Creatinine Ratio Glucose Calcium Phosphorus Magnesium Total Bilirubin AST ALT Alkaline Phosphatase Troponin I < 0.015 Total Protein Albumin Globulin Albumin/Globulin Ratio Triglycerides Cholesterol LDL Cholesterol VLDL Cholesterol HDL Cholesterol Vitamin D 25-Hydroxy 57.1 PTH Intact 30.3 05/04/19 05/04/19 05/04/19 05:26 05:26 05:26 WBC 5.6 RBC 3.38 L Hgb 9.9 L Hct 30.3 L MCV 89.6 MCH 29.3 MCHC 32.7 RDW Std Deviation 44.0 H RDW Coeff of Sandy 13.6 Plt Count 120 L MPV 10.7 Sodium 141 Potassium 3.7 Chloride 104 Carbon Dioxide 30.0 Anion Gap 7 BUN 7 Creatinine 0.48 L Estim Creat Clear Calc 47.14 Est GFR (MDRD) Af Amer 165 Est GFR (MDRD) Non-Af 136 BUN/Creatinine Ratio 14.5 Glucose 151 H Calcium 7.9 L Phosphorus 2.8 Magnesium 1.5 L Total Bilirubin 0.60 AST 54 H ALT 75 H Alkaline Phosphatase 75 Troponin I 0.074 H Total Protein 5.4 L Albumin 2.5 L Globulin 2.9 Albumin/Globulin Ratio 0.9 Triglycerides 66 Cholesterol 113 LDL Cholesterol 46 VLDL Cholesterol 13 HDL Cholesterol 54 Vitamin D 25-Hydroxy PTH Intact POC Glucose 05/04/19 05/04/19 05/04/19 11:15 06:10 02:52 POC Glucose 317 H 164 H 173 H 05/03/19 05/03/19 05/03/19 22:22 17:56 14:40 POC Glucose 237 H 188 H 150 H Medical Necessity - Tobacco Use Smoking Status: Current every day smoker Tobacco Use: Cigarettes Assessment/Plan All Active Problems (Last Reviewed 02/10/19 @ 10:26 by Lake Schultz MD) Basicervical fracture of left femur (Acute) Impressions 1. Nondisplaced fracture of the left hip-status post ORIF of the left hip on 05/03/[address] Chavez 2. Bifascicular block with a right bundle branch block and left posterior hemiblock 3. Diabetes mellitus type 2-not adequately controlled, hemoglobin A1c is 7.7 4. Hyperlipidemia 5. Chronic back pain with radiculopathy-on gabapentin 6. Suspected COPD with hyperinflation on chest x-ray and increased AP diameter of the chest 7. Chronic depression-on citalopram 8. Tobacco dependence-started smoking at age 17 9. Dehydration with elevated BUN/creatinine ratio 10. Suspected osteoporosis 11. Sinus tachycardia 12. Mildly increased troponin 13. Acute respiratory failure with hypoxemia requiring 4 to 5 L of nasal O2 to maintain adequate oxygen saturation CTA of the chest to rule out fat embolus or pulmonary embolus in light of hypoxemia requiring 4 to 5 L of nasal O2 to keep oxygen saturation above 90% and sinus tachycardia despite hydration. Smoking cessation counseling given again today. Echocardiogram today Serial cardiac enzymes Ambulatory pulse ox on room air prior to discharge Recommended she follow-up in the pulmonary clinic to arrange for PFTs continue with incentive spirometry Code Visit Inpatient E&M: [id number] [facility] L3
[2019-05-04] MEDS: 0.9% NaCl Peripheral Flush Adult/Peds IV (14:38)
[2019-05-04 16:25] LABS: Bedside Glucose 210 mg/dL (70-110)
[2019-05-04 21:30] LABS: Bedside Glucose 254 mg/dL (70-110)
[2019-05-05] VITALS (10 sets, daily range): BP systolic 107–141; BP diastolic 49–80; PULSE 84–102; RESP 16–18; TEMP 35.9–37.3; O2SAT 91–94
[2019-05-05] MEDS: 0.9% Normal Saline 1,000 ML 150 ML IV (01:19)
[2019-05-05] MEDS: oxyCODONE 5 MG Tablet PO ×4 (03:26→18:51)
[2019-05-05] MEDS: Rivaroxaban 10 MG Tablet PO (06:31)
[2019-05-05] MEDS: Insulin Lispro 100 UNIT/ML INSULN.PEN SC ×3 (06:31→17:51)
[2019-05-05 06:45] LABS: Bedside Glucose 162 mg/dL (70-110)
[2019-05-05 07:16] LABS: 24HR UR TOTAL VOLUME 2000 ml; Calcium Urine pH Range 2; Urine Calcium (Random) 9.1 (Not Estab.)
[2019-05-05] MEDS: Ensure Surgery 237 ML LIQUID PO ×3 (08:00→17:55)
[2019-05-05] MEDS: Magnesium Oxide 400 MG Tablet PO (08:00)
[2019-05-05] MEDS: Citalopram 40 MG TABLET PO (10:15)
[2019-05-05] MEDS: Famotidine 20 MG Tablet PO (10:15)
[2019-05-05] MEDS: Senna/Docusate Sodium 1 Tablet 2 TABLET PO (10:15)
--- NOTE | 2019-05-05 10:16 | CASEMGMT ---
Social Work Note SW received message from Alyssa in [facility] stating pt was denied by insurance for [facility]. SW in to update pt on denial to [facility]. GIBSON educated pt on additional options for discharge including SNF, HHC, or outpatient therapy. Pt states that she will need to call her son today and talk to him about it. Pt states that she won't be able to call her son until after 2:30pm. GIBSON informed pt that this worker needs to have an answer before that because if pt chooses SNF then pre-cert will need to be submitted and pt could be ready for discharge once pre-cert is obtained. Pt is agreeable to referral being sent to [facility] but states once she calls her son and if she decides to do something differently she will let this worker know. GIBSON informed Pt that referral can be cancelled at anytime but it is beneficial to get the process started. Pt states understanding. GIBSON placed a call to Yuliana at [facility] and updated her on referral. GIBSON informed Yuliana that if she is able to accept pt to submit for pre-cert. Yuliana states understanding. Plan: [facility] pending acceptance and pre-cert Carmella Potter CONFIGURATION MANAGEMENT CONSULTANT, ENDOSCOPY SPECIALTY TECHNICIAN
[2019-05-05 11:25] LABS: Bedside Glucose 248 mg/dL (70-110)
--- NOTE | 2019-05-05 14:25 | CASEMGMT ---
Social Work Note SW received call from Yuliana at [facility] stating pre-cert has been obtained and pt is able to discharge today. GIBSON and RN VITALY Young in to speak with pt. GIBSON updated pt that this worker faxed referral to [facility] and that pre-cert has been obtained for pt to discharge today. Pt states that she still needs to call her son to confirm plans. GIBSON and JEAN-CLAUDE HAIDER spoke with pt again stating pt could benefit from pt going to SNF for short term rehabilitation. Pt states understanding, but again states she would like to speak with her son. Pt states that she lives with her son and cousin. Pt states her son works but that her cousin is available to help 28/04. SW asked pt to call her son soon and that this worker will be back in around 3:00pm to confirm plans. Pt states understanding, states she will be calling her son. Plan: [facility] today if pt is agreeable Carmella Potter WANT AD CLERK, MAT MACHINE TENDER
[2019-05-05 14:39] LABS: Vitamin D 1,25-Dihydroxy 75.3 pg/mL (19.9-79.3)
--- NOTE | 2019-05-05 15:35 | CASEMGMT ---
Social Work Note Pt is requesting to speak to this worker. SW met with pt. Pt asked if it will cost her to go to [facility]. SW informed pt that her insurance will pay for her to go. Pt asked if she could stay until tomorrow and this worker informed her that the discharge is determine by the physician but per previous conversations with the physician, it sounded like pt was going to be discharged today. Pt states she will be calling her son to inform him of discharge to [facility] today. SW is leaving the floor for the day. SW [facility] and placed transportation form on pt's chart. Green sheet on chart. SW spoke with Yuliana at [facility] and informed her that pt will be discharged today but that this worker is unaware at what time. Charge Nurse updated that pt is able to discharge to SNF once physician puts discharge order in. Plan: [facility] skilled today Carmella Potter WATER COMMISSIONER, MANAGER CASINO
--- NOTE | 2019-05-05 17:38 | PCM.TXEXTCAR ---
- Diet 05/04/19 08:58 Diet: 1600 calorie diet, cardiac Is pt able to select menu?: Yes - Routine Orders/Code Status Enema Type: Fleetz Enema Frequency: Daily PRN Suppository Type: Dulcolax 10mg Suppository Frequency: Daily PRN O2 Liters per Minute: 3 O2 Frequency: Continuous Keep PO Greater than or Equal to (%): 89 Routine Lab Work: - - cbc, BMP, mag on 05/08/19 Code Status: Full Code - Wound(s) LEFT HIP Wound Type: Surgical Incision - Therapies Weight Bearing: Weight bearing as tolerated Extremity Affected:: Left Lower Physical Therapy: Eval and Treat Occupational Therapy: Eval and Treat - Problem/Diagnosis (1) Left posterior fascicular block (LPFB) Status: Chronic Current Visit: Yes (2) COPD (chronic obstructive pulmonary disease) Status: Suspected Current Visit: Yes (3) Tobacco dependence Status: Chronic Current Visit: Yes (4) Diabetes mellitus type 2 in nonobese Status: Chronic Comment: not adequately controlled Current Visit: Yes (5) Basicervical fracture of left femur Status: Acute Current Visit: Yes (6) Hyperlipidemia Status: Chronic Current Visit: No (7) Right bundle branch block Status: Chronic Comment: bifascicular block Current Visit: No (8) Chronic back pain Status: Chronic Current Visit: Yes (9) Dehydration Status: Acute Current Visit: Yes (10) Acute respiratory failure with hypoxia Status: Acute Current Visit: Yes (11) Chronic respiratory failure with hypoxia Status: Suspected Current Visit: Yes (12) Status post hip surgery Status: Acute Comment: L hip cephalo-medullary nail Current Visit: Yes (13) Anxiety and depression Status: Chronic Current Visit: Yes (14) Osteoporosis Status: Suspected Current Visit: Yes (15) Elevated troponin Status: Acute Comment: indeterminate - likely due to Sinus tachycardia Current Visit: Yes (16) Acute blood loss anemia Status: Acute Comment: Secondary to acute hip fracture and surgical repair Current Visit: Yes - Allergies/Procedures Done in Hospital Allergies/Adverse Reactions: Allergies No Known Allergies Allergy (Verified 05/03/19 06:21) Procedures: 2-D Echocardiogram - Based upon the 2D echocardiographic images obtained there appears to be grossly normal left ventricular size, wall motion, and systolic function. The estimated ejection fraction is 75 %. Trivial mitral valve insufficiency. Trivial tricuspid valve insufficiency. Right ventricular systolic pressure estimated to be 31 mmHg. No evidence for diastolic dysfunction. - Type of Care/Length of Stay Estimated LOS: Convalescent Care Less Than 30 days Type of Care Needed: Skilled Rehab Potential: Good Prognosis: Good - Additional Orders/Day of Discharge Additional Orders: She will need an ambulatory pulse ox on RA prior to discharge home. She also needs PFT's and follow up in the pulmonary clinic post DC. she refused a Nicotine patch in the hospital. H&P will serve as current which was dated: 05/03/19 Day of Discharge: 05/05/19 - Dietary and Speech Recommendations Dietitian Recommendations/Changes: Recommend advance to 1600 calorie controlled;cardiac diet when medically indicated. - Follow Up Care Primary Care Physician: Roxi Ritter MD [Primary Care Provider] - Please follow up with your Primary Care Physician in: following DC from SNF Please Follow Up With: Ryan Chavez MD When: 2 weeks in the [facility] office
--- NOTE | 2019-05-05 17:50 | PCM.DC.SUM ---
Discharge Date and Diagnosis Date of Admission: 05/03/19 Date of Discharge: 05/05/19 - Primary Discharge Diagnosis Active and Suspected Problems (Last Reviewed 02/10/19 @ 10:26 by Lake Schultz MD) Basicervical fracture of left femur (Acute) COPD (chronic obstructive pulmonary disease) (Suspected) Dehydration (Acute) Acute respiratory failure with hypoxia (Acute) Chronic respiratory failure with hypoxia (Suspected) Status post hip surgery (Acute) L hip cephalo-medullary nail Osteoporosis (Suspected) Elevated troponin (Acute) indeterminate - likely due to Sinus tachycardia in the RR post-op Acute blood loss anemia (Acute) Secondary to acute hip fracture and surgical repair - Secondary Discharge Diagnosis Chronic Problems (Last Reviewed 02/10/19 @ 10:26 by Lake Schultz MD) Bifascicular block with Left posterior fascicular block and RBBB Diabetes mellitus type 2 in nonobese (Chronic) not adequately controlled - HGBA1C is 7.7 Chronic back pain (Chronic) Anxiety and depression (Chronic) Hyperlipidemia (Chronic) tobacco dependence Hospital Course and Treatment Imaging Results: Clinical Impression(s) from Imaging Studies Hip/Pelvis X-Ray 05/03/19 06:22 IMPRESSION: Suspicion of a nondisplaced basicervical fracture of the proximal left femur. Degenerative changes of both hip joints Electronically Signed: Toby Harman MD at 7:45 EDT Tel , Service support , Chest X-Ray 05/03/19 06:38 IMPRESSION: Normal x-ray examination of the chest. No acute findings in the lungs Electronically Signed: Toby Harman MD at 7:40 EDT Tel , Service support , Hip X-Ray 05/03/19 16:06 IMPRESSION: Fluoroscopic guided open reduction internal fixation of left hip fracture Electronically Signed: Anil Stanford MD at 17:05 EDT , Service support , Hip/Pelvis X-Ray 05/03/19 17:30 IMPRESSION: Status post open reduction internal fixation of left femoral neck fracture Electronically Signed: Anil Stanford MD at 21:54 EDT , Service support , Chest CTA 05/04/19 13:00 IMPRESSION: Findings suggest some mild bibasilar scarring with subpleural thickening. There is no evidence of pulmonary embolism. Electronically Signed: Rohit Simon, at 15:14 EDT , Service support , Laboratory Results - last 24 hr 05/03/19 05/04/19 05/04/19 06:23 19:00 21:14 Troponin I 0.038 Vit D 1,25-Dihydroxy 75.3 Urine pH Urine Collection Time Urine Total Volume Urine Calcium Ur Calcium 24 Hr POC Glucose 254 H 05/05/19 05/05/19 05/05/19 02:45 06:28 11:17 Troponin I Vit D 1,25-Dihydroxy Urine pH 2 Urine Collection Time 24.0 Urine Total Volume 2000 Urine Calcium 9.1 Ur Calcium 24 Hr 182.0 POC Glucose [address] Jean-Paul Chavez-orthopedics Operations: - - Left hip cephalo-medullary nail for basicervical fracture on 05/03/[address] Jean-Paul Chavez Procedures: 2-D Echocardiogram - Based upon the 2D echocardiographic images obtained there appears to be grossly normal left ventricular size, wall motion, and systolic function. The estimated ejection fraction is 75 %. Trivial mitral valve insufficiency. Trivial tricuspid valve insufficiency. Right ventricular systolic pressure estimated to be 31 mmHg. No evidence for diastolic dysfunction., EKG Summary of Care Provided: The patient is a 69 year old F with a past medical history of diabetes mellitus type 2, chronic back pain, tobacco dependence, hyperlipidemia, bifascicular block with right bundle branch block and left posterior hemiblock and suspected COPD who presented to the emergency department at [facility] on 05/03/2019 complaining of left hip pain. She fell at home on her left side and when she moved the pain increased. X-ray in the emergency room revealed a nondisplaced fracture of the left hip. Vital signs at presentation to the emergency room were temperature 97.8, pulse rate 99, blood pressure 144/92, respiratory rate 18 and she was 94% saturated on room air. CBC was within normal limits. PT and PTT were normal. A BMP was unremarkable with the exception of an elevated BUN/creatinine ratio at 27.7. Blood sugar was 212 and the hemoglobin A1c was 7.7. Calcium was 9.5. Chest x-ray showed hyperinflation with a vertical heart and no evidence of congestive heart failure, pleural effusions or infiltrates. On PE she had an increased AP diameter of the chest and the BS's were diminished. The LLE was shortened and externally rotated. She was admitted to the hospital with a nondisplaced fracture of the left hip and kept n.p.o. for surgery with Dr. Chavez on the date of admission. In the RR post- op she had ST in the 120-130 range and required 5 LPM of O2 to keep saturations above 90. EKG showed sinus tachycardia with a right bundle branch block and left posterior hemiblock. There were no significant ST or T wave changes that would indicate ischemia. Her lungs were diminished and clear. I thought she was dehydrated and IV fluids were ordered and she was transferred to CT. the following morning the tachycardia had improved but the patient was still requiring oxygen and was 88% on the 3 L nasal cannula and 95% on a 4 L nasal. IV fluids were continued. Hemoglobin on 05/04/2019 was 9.9, down from 13.5 at admission. BMP showed a BUN of 7 and a creatinine of 0.48, down from 0.65 at admission. Troponin was increased at 0.074 in the recovery room postoperatively, likely secondary to demand ischemia related to sinus tachycardia. The next troponin was within normal limits. She continued to require oxygen and a CTA of the chest was done and was negative for PE. I suspect she has COPD. She started smoking at the age of 17 and continues to smoke. She has an increased AP diameter of the chest and hyperexpansion on the CXR. The BS's are diminished. On 05/05/2019 she was afebrile with stable vital signs. She was 91% saturated on a 2 L nasal cannula at rest. She was transferred to [facility] for continued PT/OT prior to returning home. She received smoking cessation counseling on more than one occasion during her admission. She refused a nicotine patch. A work up for secondary causes of osteoporosis was undertaken while she was in the hospital. The 24-hour urine calcium was 182. Vitamin D levels were within normal limits. Calcium corrected for hypoalbuminemia was within normal limits. Phosphorus was normal. PTH was within normal limits at 30.3. She was discharged on Xarelto 10 mg daily x1 month for DVT prophylaxis. She will follow-up in the [facility] office in [address] Chavez. Following DC from SNF she will follow up with her PCP and if she has not had a recent bone density study she should have a DEXA in the near future. Depending on the results of DEXA may require a bisphosphonate. I recommended she discuss with Dr. Ritter a referral to Pulmonary medicine for PFT's. I suspect she likely has chronic respiratory failure with hypoxemia but she states that she will not wear her oxygen at home. General: Alert, oriented ?3, cooperative, pleasant and appropriate Neck: Supple, trachea midline, no enlarged cervical nodes, no enlarged supraclavicular nodes Lungs: Clear to auscultation, symmetric chest expansion, not tachypneic, no conversational dyspnea, no accessory muscle use, increased AP diameter of the chest, diminished breath sounds Heart: Regular rate and rhythm, normal S1, normal S2, she has a soft systolic MM at the LLSB, no gallop, no rub Abdomen: Soft, NT, ND, bowel sounds present Extremities: No clubbing, no peripheral edema, no cyanosis, intact sensation to both feet and both feet are warm to touch. No focal neurologic deficits This note was generated with [employer] dictation software. It may contain incorrect words, spelling, and punctuation that were not noted in checking the note before signing. - Physical Exam Vital Signs Temp Pulse Resp BP Pulse Ox 98.1 F 93 18 107/69 92 05/05/19 12:46 05/05/19 13:01 05/05/19 12:46 05/05/19 12:46 05/05/19 12:46 Oxygen Flow Rate (L/min) 3 Oxygen Delivery Method Nasal Cannula Weight: 154 lb 1.65 oz Body Mass Index (BMI) 26.4 Finger Stick Blood Glucose 188 Intake and Output for Last 24 Hours 05/03/19 05/04/19 05/05/19 23:59 23:59 23:59 Intake Total 2605 / 3787 3718 / 4926 2666 / 2666 Output Total 225 / 525 1500 / 2100 1200 / 1200 Balance 2380 / 3262 2218 / 2826 1466 / 1466 Laboratory Tests Past 24 Hrs 05/03/19 05/04/19 05/05/19 06:23 19:00 02:45 Troponin I 0.038 Vit D 1,25-Dihydroxy 75.3 Urine pH 2 Urine Collection Time 24.0 Urine Total Volume 2000 Urine Calcium 9.1 Ur Calcium 24 Hr 182.0 POC Glucose 05/05/19 05/05/19 05/04/19 11:17 06:28 21:14 POC Glucose 248 H 162 H 254 H Home Medications: Medications to take at Discharge metFORMIN HCl [Glucophage] 1,000 mg PO BID 02/26/15 Potassium Chloride 20 meq PO DAILY 12/12/18 ergocalciferol (vitamin D2) 50,000 unit capsule 50,000 unit PO QWEEK 02/05/19 gabapentin 400 mg capsule 400 mg PO TID PRN 02/05/19 omeprazole 20 mg capsule,delayed release 20 mg PO BID cap 02/05/19 Citalopram [Celexa] 20 mg PO DAILY #1 tab 05/05/19 Famotidine [Pepcid] 20 mg PO BID tab 05/05/19 Oxycodone [Oxyir] 5 mg PO Q4H PRN PRN 7 Days #42 tab 05/05/19 Rivaroxaban [Xarelto] 10 mg PO DAILY@0600 tab 05/05/19 Senna/Docusate Sodium [Senokot-S] 2 tab PO BID tab 05/05/19 Following Prescrptions Were Given to Patient: Citalopram [Celexa] 20 mg PO DAILY #1 tab Oxycodone [Oxyir] 5 mg PO Q4H PRN PRN 7 Days #42 tab PRN Reason: Moderate Pain (4-6/10) Prescription Printed Primary Care Physician: Roxi Ritter MD [Primary Care Provider] - Please follow up with your Primary Care Physician in: following DC from [facility] Please Follow Up With: Ryan Chavez MD When: 2 weeks in the [facility] office Disposition: Senior Care facility - [place] Minutes spent on discharge:: 40 Patient Condition:: Stable Medical Necessity - Tobacco Use Smoking Status: Current every day smoker Tobacco Use: Cigarettes Meaningful Use Info Meaningful Use Diagnoses (Choose all that apply): None applicable Code Visit Inpatient E&M: 89125 Disch Hosp
[2019-05-05 17:56] LABS: Bedside Glucose 213 mg/dL (70-110)
== END 2019-05-05 20:05 | disposition skilled nursing facility (03) | DRG 481 ==
LOC: ED 07:22 → MS3 07:47
PROVIDERS: Anesthesiology; Specialist; Admitting Provider Internal Medicine; Emergency Provider Emergency Medicine; Family Provider Internal Medicine; PCP Internal Medicine; Visit Provider Internal Medicine
PROC: 0QH736Z Insertion of Intramedullary Internal Fixation Device into Left Upper Femur, Percutaneous Approach (ICD-10-PCS; CPT 27245; principal; 2019-05-03 15:00)
DX: S72.002A Fracture of unspecified part of neck of left femur, initial encounter for closed fracture (principal); I45.2 Bifascicular block; D62 Acute posthemorrhagic anemia; J96.11 Chronic respiratory failure with hypoxia; W01.0XXA Fall on same level from slipping, tripping and stumbling without subsequent striking against object, initial encounter; Y93.01 Activity, walking, marching and hiking; Y92.008 Other place in unspecified non-institutional (private) residence as the place of occurrence of the external cause; E78.5 Hyperlipidemia, unspecified; G89.29 Other chronic pain; M54.9 Dorsalgia, unspecified; F32.9 Major depressive disorder, single episode, unspecified; F17.210 Nicotine dependence, cigarettes, uncomplicated; E11.65 Type 2 diabetes mellitus with hyperglycemia; E86.0 Dehydration; J44.9 Chronic obstructive pulmonary disease, unspecified; M81.0 Age-related osteoporosis without current pathological fracture; F41.9 Anxiety disorder, unspecified; R00.0 Tachycardia, unspecified; Z79.84 Long term (current) use of oral hypoglycemic drugs
CPT/HCPCS: 36415; 71045; 71275; 73502; 76000; 80048; 80053; 80061; 80076; 82306; 82340; 82652; 82962; 83036; 83735; 83970; 84100; 84484; 85027; 85610; 85730; 86850; 86900; 93005; 93306; 97116; 97162; 97166; 97530; 97802; 99285; 99406; C1713; J7030; J7120; Q9957; Q9967; A4216; J2405

== ENCOUNTER → 2020-11-02 11:08 | Outpatient (CLI) | payer MEDICARE, SELFPAY ==
[2019-05-03 14:29] VITALS: BMI 26.4
--- NOTE | 2020-11-02 11:11 | RAD_ITS ---
STUDY: X-RAY - PELVIS AND LEFT HIP REASON FOR EXAM: Left hip pain, recent falls, surgery in 2019. TECHNIQUE: 2 views of the pelvis and hip. COMPARISON: Radiographs 05/03/2019. FINDINGS: There is no interval change of the soft tissue calcification overlying the right iliac wing. Normal bilateral iliac wings, sacroiliac joints and visualized sacrum. Normal bilateral superior and inferior pubic rami. Normal pubic symphysis. Normal bilateral ischial tuberosities. There is intact orthopedic hardware transfixing a healed femoral neck fracture. Normal acetabulum. There are small marginal osteophytes of the left femoral head and mild joint space narrowing of the superior medial left hip joint. RAD/HIP, UNI W/ Pelvis 2-3 Views IMPRESSION: Healed left femoral neck fracture with intact orthopedic hardware. Mild left hip arthrosis. Electronically Signed: Jose Murillo MD at 12:58 EST Tel , Service support ,
== END ==
PROVIDERS: PCP Internal Medicine; Referring Provider Nurse Practitioner Family; Visit Provider Nurse Practitioner Family
DX: M25.552 Pain in left hip (principal)
CPT/HCPCS: 73502

== ENCOUNTER → 2021-04-23 13:40 | Outpatient (CLI) | payer MEDICARE, SELFPAY ==
[2019-05-03 14:29] VITALS: BMI 26.4
--- NOTE | 2021-04-23 13:44 | RAD_ITS ---
STUDY: X-RAY - CERVICAL SPINE REASON FOR EXAM: Female, 70 years old. CERVICAL SPONDYLOSIS TECHNIQUE: 5 view(s) of the cervical spine were obtained. COMPARISON: 12/20/2016 FINDINGS: Normal anterior atlantoaxial articulation. Normal odontoid process. There is straightening of the normal cervical lordosis. There is multi-level endplate spondylosis. There is multi-level degenerative disc disease with multilevel disc space narrowing. There is multi-level osseous foraminal stenosis. Degenerative anterolisthesis of C4-C5 and C5-C6 measures approximately 2 mm. Multilevel facet arthropathy. There are atherosclerotic vascular calcifications of the carotid arteries. RAD/Cerv Spine 4 or 5 Views IMPRESSION: 1. Multilevel degenerative changes with foraminal narrowing, overall similar since 2016. Electronically Signed: Marvin Hernandez MD ([place]) at 13:27 EDT , Service support ,
== END ==
PROVIDERS: PCP Internal Medicine; Referring Provider Nurse Practitioner Family; Visit Provider Nurse Practitioner Family
DX: M47.812 Spondylosis without myelopathy or radiculopathy, cervical region (principal); M50.30 Other cervical disc degeneration, unspecified cervical region
CPT/HCPCS: 72050

== ENCOUNTER 2022-10-11 16:17 | Inpatient (IN) | payer MEDICARE, MEDICAID, SELFPAY ==
[2022-10-11 16:18] VITALS: BP 136/78; PULSE 89; RESP 16; TEMP 36.6; O2SAT 99; BMI 26.7
--- NOTE | 2022-10-11 16:30 | RAD_ITS ---
EXAM: XR RIGHT KNEE, 3 VIEWS CLINICAL INDICATION: FALL TECHNIQUE: Three views of the right knee. This report was created using [employer] report generation technology. COMPARISON: None. FINDINGS: BONES/JOINTS: No acute fracture, subluxation or joint effusion. Surgical fixation of the distal femur and patella. SOFT TISSUES: Normal. No soft tissue swelling or gas. No radiopaque foreign body. RAD/Knee 3 Views IMPRESSION: No acute bone or joint abnormality. Electronically Signed: William Rosas MD at 16:52 EST ,
--- NOTE | 2022-10-11 23:15 | RAD_ITS ---
STUDY: X-RAY - PELVIS AND RIGHT HIP REASON FOR EXAM: Female, 72 years old. Injury/Pain TECHNIQUE: 3 views of the pelvis and hip. COMPARISON: None. FINDINGS: There is a non-specific bowel gas pattern. Normal visualized soft tissue structures. There is diffuse demineralization of the osseous structures. Normal bilateral iliac wings, sacroiliac joints and visualized sacrum. Normal bilateral superior and inferior pubic rami. There are degenerative changes of the pubic symphysis with articular narrowing and sclerosis. Normal bilateral ischial tuberosities. There are osteoarthritic changes of the femoral head with marginal osteophyte formation. Normal acetabulum. There is moderate articular joint space narrowing of the hip. RAD/HIP, UNI W/ Pelvis 2-3 Views IMPRESSION: There is possible nondisplaced intertrochanteric fracture of the right femur. Electronically Signed: Martha Miller MD at 23:40 EST ,
--- NOTE | 2022-10-11 23:26 | EDS_ITS ---
HPI HPI - Fall History of Present Illness Chief Complaint: Fall Occured/Mechanism Occurred: Today Mechanism/Context: Yes same level fall Pain/Injury Location: Right hip, right knee Pain Location: lower extremity Quality of Pain: Sharp Worsened by: Movement Relieved by: Nothing Associated Symptoms Associated Symptoms: Negative for Parasthesias, Weakness, Loss of function, Inability to ambulate, Loss of consciousness or Amnesia Narrative Narrative: Patient presents after a fall that occurred today. Patient states she turned while she was standing and fell backwards. Patient states her knee hyperflexed and fell under her. Patient complains of pain in her right knee. Patient also complains of pain in her right hip. Patient denies any head injury or loss of consciousness. Patient denies any paresthesias or weakness. Patient describes her pain as sharp. Patient states her pain is worse with any movement. Patient denies any other injuries. Patient has had prior surgery on her right femur due to prior fracture. [facility] Medical History (Updated 10/12/22 @ 01:[address] Hipolito Mcdaniel MD) Depression GERD (gastroesophageal reflux disease) Hyperlipidemia Right bundle branch block Type 2 diabetes mellitus without complication Home Medications metformin 500 mg tablet 1,000 mg PO BID diabetes 02/26/15 [History Last Taken 05/02/19] potassium chloride 20 mEq tablet,extended release(part/cryst) 20 meq PO DAILY SUPPLEMENT 12/12/18 [History Last Taken 05/02/19] gabapentin 400 mg capsule 400 mg PO TID PRN NERVE PAIN 02/05/19 [History Last Taken 04/26/19] oxycodone-acetaminophen 5 mg-325 mg tablet 1 tab PO TID PRN PRN Pain 10/12/22 [History Last Taken Unknown] pioglitazone 15 mg tablet 15 mg PO DAILY 10/12/22 [History Last Taken Unknown] Allergy/AdvReac Type Severity Reaction Status Date / Time No Known Allergies Allergy Verified 10/11/22 16:17 Family History Mother Diabetes Heart disease Pacemaker Surgical History H/O excision of ganglion cyst History of cholecystectomy History of hammer toe correction History of loop recorder History of open reduction and internal fixation (ORIF) procedure History of tubal ligation Social History Smoking Status: Current every day smoker tobacco type: cigarettes quit status: considering quitting alcohol intake: never substance use type: does not use caffeine: Yes Type: coffee Number of servings: 2 ROS ROS ED Constitutional Constitutional ED: Denies chills or fever(s) Eyes Eyes: Denies blurry vision or change in vision ENT ENT ED: Denies rhinorrhea or sore throat Cardiovascular Cardiovascular: Denies chest pain or palpitations Respiratory/Chest Respiratory/Chest: Denies cough or dyspnea Gastrointestinal Gastrointestinal: Denies nausea or vomiting Genitourinary Genitourinary ED: Denies dysuria or hematuria Musculoskeletal Musculoskeletal: Denies back pain or neck pain Integumentary Denies abscess or rash Neurologic Neurologic: Denies headache(s) or weakness Allergic/Immunologic Allergic/Immunologic ED: Denies mouth swelling or urticaria EXAM Physical Exam Const Vital Signs: 10/11/22 16:18 10/11/22 22:00 10/12/22 00:17 Temperature 97.9 F Temperature Source Temporal Pulse Rate 89 80 Respiratory Rate 16 15 Respiratory Effort Normal Non-Labored Respiratory Depth Normal Respiratory Pattern Normal Blood Pressure 136/78 H 132/72 H Blood Pressure Mean 97 92 Pulse Ox 99 98 Oxygen Delivery Method Room Air Room Air Positive well nourished and well developed General Appearance ED: well developed and NAD HEENT Reports normocephalic atraumatic Neck full ROM and supple Extremity Extremity Narrative: There is mild tenderness of the right distal femur and right knee. There is no edema or ecchymosis. There is no bony crepitance or step-off. There is also tenderness over the right hip. There is pain with internal and external rotation of the right lower extremity. Pedal pulses are equal bilaterally. Sensation was intact to light touch bilaterally in the lower extremities. There are no focal motor or sensory deficits. There is no obvious deformity noted. Neuro oriented x3, CN's II-XII intact bilaterally, moves all extremities, no focal motor deficits and no sensory deficits noted Yuliya Coma Scale: document GCS findings Spontaneous Obeys Commands Oriented 15 Sensorium / Orientation: alert Motor Exam: strength 5/5 throughout Psych mental status grossly normal MDM MDM MDM Narrative Medical decision making narrative: X-rays of the right knee were obtained. There are 4 views. On my interpretation, there is no acute fracture or dislocation. There is prior hardware from previous distal femur fracture. Radiologist also interpreted the x-rays and agrees. X-rays of the right hip were obtained. There are 3 views. On my interpretation, there is a subtle intertrochanteric fracture of the right hip. There is no displacement noted. Radiologist also interpreted the x-rays and agrees. Case was discussed with Dr. Power from orthopedics. He will see the patient in consultation. EKG was obtained. On my interpretation, it shows a normal sinus rhythm with a rate of 93. There was a right bundle branch block pattern noted. There is a left posterior fascicular block pattern noted. FL interval was within normal limits. QRS interval was 126 ms. QTc interval was 482 ms. There is some right axis deviation at 114 degrees. There are no acute ST or T wave changes. Basic labs were obtained for preoperative clearance. Initially patient's med list showed that she was on Xarelto. Upon further questioning with the patient, she states that she no longer takes Xarelto. Patient states she was only on this after her prior left hip surgery and right distal femur surgery. Patient states this was 4-5 years ago. Patient states she no longer takes Xarelto. Portable 1 view chest x-ray was obtained. On my interpretation, lung saez are clear. There is normal cardiac silhouette. Bony thorax is normal. There is no acute process noted. Radiologist also interpreted the x-ray and agrees. CBC was obtained and was reviewed. This was within normal limits. PT was INR and PTT were within normal limits. Comprehensive metabolic profile was obtained. Glucose was mildly elevated 225. Electrolytes were within normal limits. Anion gap was normal. Case was discussed with the hospitalist. He will admit the patient to his service. Patient understood and was agreeable with the plan. All questions were answered. Lab Data Labs: Laboratory Results - last 24 hr 10/12/22 10/12/22 10/12/22 00:57 00:57 00:57 WBC 6.4 RBC 4.23 Hgb 12.6 Hct 38.3 MCV 90.5 MCH 29.8 MCHC 32.9 RDW Std Deviation 41.6 RDW Coeff of Sandy 12.7 Plt Count 166 MPV 10.5 Immature Gran % (Auto) 0.300 Neut % (Auto) 81.3 H Lymph % (Auto) 11.5 L [place] % (Auto) 6.7 Eos % (Auto) 0.0 Baso % (Auto) 0.2 Absolute Neuts (auto) 5.2 Absolute Lymphs (auto) 0.74 L Nucleated RBC % 0 PT 13.1 INR 1.0 APTT 25.8 Sodium 137 Potassium 4.1 Chloride 102 Carbon Dioxide 31.0 Anion Gap 4 L BUN 18 Creatinine 0.58 Estim Creat Clear Calc 45.20 Est GFR (MDRD) Af Amer 131 Est GFR (MDRD) Non-Af 108 BUN/Creatinine Ratio 30.8 H Glucose 225 H Calcium 9.5 Total Bilirubin 0.40 AST 13 L ALT 23 Alkaline Phosphatase 97 Total Protein 7.0 Albumin 3.4 Globulin 3.6 Albumin/Globulin Ratio 0.9 Radiography Diagnostic Testing: Clinical Impression(s) from Imaging Studies Knee X-Ray 10/11/22 16:30 IMPRESSION: No acute bone or joint abnormality. Electronically Signed: William Rosas MD at 16:52 EST , Hip/Pelvis X-Ray 10/11/22 23:15 IMPRESSION: There is possible nondisplaced intertrochanteric fracture of the right femur. Electronically Signed: Martha Miller MD at 23:40 EST , EKG Initial EKG: Attestation: I personally reviewed and interpreted this EKG as follows: Interpretation: Sinus Rhythm (93), RBBB, Non-Specific ST Changes and - (Left posterior fascicular block) Prior EKG tracings: available for review Prior: Unchanged (05/04/2019) Discharge Plan Dx/Rx/DC Orders Clinical Impression: Intertrochanteric fracture of right hip, Tobacco dependence, Fall Disposition Disposition: Acute Care [facility]
[2022-10-12] VITALS (12 sets, daily range): BP systolic 119–157; BP diastolic 67–90; PULSE 80–113; RESP 15–18; TEMP 36.4–37.3; O2SAT 86–98; BMI 25.2
--- NOTE | 2022-10-12 00:45 | EKG12_ITS ---
Test Reason : FALL Blood Pressure : / mmHG Vent. Rate : 093 BPM Atrial Rate : 093 BPM P-R Int : 162 ms QRS Dur : 126 ms QT Int : 388 ms P-R-T Axes : 078 114 054 degrees QTc Int : 482 ms Normal sinus rhythm Right bundle branch block Left posterior fascicular block Bifascicular block Abnormal ECG Confirmed by LADI MCGARRY, LONNIE ([id number]), make up editor WILLOW GOULD ([id number]) on 10/14/2022 11:06:51 AM Referred By: RAYMUNDO Confirmed By:MONTANA BLEDSOE MD
--- NOTE | 2022-10-12 01:01 | PCM.HP.STD ---
[facility] - General General Date of Admission: 10/12/22 Date of Service: 10/12/22 Chief Complaint: Fall HPI Narrative TYRONE PARTIDA, is a 72 F with a significant history of diabetes mellitus and left hip replacement who presents emergency department with a fall. Patient had a mechanical fall at her kitchen. She denies any lightheadedness or Vertigo before the fall. She landed on her right side and has pain in her right hip. She fell on the same day of presentation [facility] Medical History Depression GERD (gastroesophageal reflux disease) Hyperlipidemia Right bundle branch block Smoker Type 2 diabetes mellitus without complication Home Medications metformin 500 mg tablet 1,000 mg PO BID diabetes 02/26/15 [History Last Taken 10/11/22] potassium chloride 20 mEq tablet,extended release(part/cryst) 20 meq PO DAILY SUPPLEMENT 12/12/18 [History Last Taken 10/11/22] gabapentin 400 mg capsule 600 mg PO TID pain 02/05/19 [History Last Taken 10/11/22] oxycodone-acetaminophen 5 mg-325 mg tablet 1 tab PO TID PRN PRN Pain 10/12/22 [History Last Taken Unknown] pioglitazone 15 mg tablet 15 mg PO DAILY diabetes 10/12/22 [History Last Taken 10/11/22] Allergy/AdvReac Type Severity Reaction Status Date / Time No Known Allergies Allergy Verified 10/11/22 16:17 Family History Mother Diabetes Heart disease Pacemaker Surgical History H/O excision of ganglion cyst History of cholecystectomy History of hammer toe correction History of loop recorder History of open reduction and internal fixation (ORIF) procedure History of tubal ligation Social History Smoking Status: Current every day smoker tobacco type: cigarettes quit status: considering quitting alcohol intake: never substance use type: does not use caffeine: Yes Type: coffee Number of servings: 2 ROS ROS Narrative Pertinent positives and pertinent negatives as noted in HPI. All other systems were reviewed and are negative Vital Signs Vital Signs Vital Signs: 10/11/22 16:18 10/11/22 22:00 Temperature 97.9 F Temperature Source Temporal Pulse Rate 89 Respiratory Rate 16 Respiratory Effort Normal Non-Labored Respiratory Depth Normal Respiratory Pattern Normal Blood Pressure 136/78 H Blood Pressure Mean 97 Pulse Ox 99 Oxygen Delivery Method Room Air Weight Weight: 70.76 kg Body Mass Index (BMI) 26.7 Physical Exam Narrative Physical exam: General: Well-nourished, well-developed. Head: Normocephalic, atraumatic, no tenderness Eyes: Vision is grossly intact. EOMI ENT, no trauma, moist mucous membranes, no rhinorrhea Neck: Nontender, No thyromegaly. CVS: Regular rate and rhythm. S1-S2 present. No murmur, gallop or rub. Respiratory : clear to auscultation bilaterally, chest wall nontender, no wheezing Abdomen: Soft, nontender, nondistended, normal bowel sounds, no masses : Deferred Back: Nontender, no CVA tenderness Extremities: Pain with raising left leg. Right leg not raised secondary to fracture. Externally rotated right leg. Skin: Normal color, no trauma, abrasions Neuro: Alert, oriented, cranial nerves II through XII grossly intact. Psychiatry: Normal mood. Normal affect. Not depressed. Not anxious. Results Lab / Micro Data Result Diagrams: 10/12/22 00:57 10/12/22 00:57 Radiology Impression Knee X-Ray 10/11/22 16:30 IMPRESSION: No acute bone or joint abnormality. Electronically Signed: William Rosas MD at 16:52 EST , Hip/Pelvis X-Ray 10/11/22 23:15 IMPRESSION: There is possible nondisplaced intertrochanteric fracture of the right femur. Electronically Signed: Martha Miller MD at 23:40 EST , Assessment & Plan Assessment/Plan (1) Hip fracture, right: (2) Diabetes mellitus type 2 in nonobese: (3) Tobacco dependence: PLAN: Plan Right hip fracture Hip/pelvis x-ray with right hip fracture. Hip and pelvis x-ray was visualized and independently interpreted and I agree with radiologist interpretation. Emergent department doctor discussed the case with Dr. Power. Inpatient consult for orthopedic surgery. Morphine IV and oxycodone as needed ordered. Tylenol as needed ordered. Bowel protocol and antiemetics IV ordered. Keep n.p.o. While n.p.o. lactated Ringer's ordered. Check vitamin D level. Preoperative EKG unremarkable ACS NSQIP surgical risk calculator with below surgical risk. Trend CBC and BMP. Diabetes mellitus Patient with hyperglycemia on presentation Home pioglitazone continued. Metformin held. Monitor Accu-Cheks Correction scale insulin ordered. Tobacco abuse Counseled Nicotine patch prescribed. DVT prophylaxis SCDs ordered Charges/Coding Visit Charges Inpatient E&M: 23976 Init Hosp L2
[2022-10-12 01:02] LABS: Absolute Lymphocyte Count 0.74 X10^3/uL (0.83-4.51); Absolute Neutrophil Count 5.2 X10^3/uL (2.0-7.7); Basophil# 0.01 X10^3/uL; Basophil% 0.2 % (0-1); Hematocrit 38.3 % (37-47); Hemoglobin 12.6 g/dL (12.0-15.0); Lymphocyte # 0.74 X10^3/ul (0.83-4.51); Lymphocyte % 11.5 % (19-41); Mean Corp Hgb Conc 32.9 g/dL (32-36); Mean Corpuscular Hgb 29.8 pg (27.0-32.0); Mean Corpuscular Volume 90.5 fL (81-99); Mean Platelet Vol. 10.5 fl (6.2-12.0); Monocyte# 0.43 X10^3/uL; Monocyte% 6.7 % (0-10); NRBC Flagged by Analyzer 0 % (0-5); Neutrophil # 5.24 X10^3/uL (2.7-7.7); Neutrophil % 81.3 % (47-70); Platelet Count 166 K/mm3 (150-450); RBC Distribution Width CV 12.7 % (11.6-14.6); RBC Distribution Width SD 41.6 fl (35.1-43.9); Red Blood Count 4.23 M/mm3 (4.2-5.4); White Blood Count 6.4 K/mm3 (4.4-11.0)
[2022-10-12 01:14] LABS: Prothrombin Time (Protime)PT. 13.1 SECONDS (11.7-14.9)
[2022-10-12 01:15] LABS: Partial Thromboplast Time 25.8 Seconds (24.1-36.2)
--- NOTE | 2022-10-12 01:15 | RAD_ITS ---
STUDY: X-RAY CHEST REASON FOR EXAM: Female, 72 years old. cough TECHNIQUE: Single AP portable view of the chest. COMPARISON: None. FINDINGS: The lungs are clear and expanded. There is no demonstrated pleural abnormality. Normal size heart. Normal mediastinum and jami. Normal visualized pulmonary arteries. Normal visualized aortic arch and descending thoracic aorta. Normal visualized thoracic spine. There is degenerative osteoarthritis of the bilateral shoulders. Old healed fractures of the right clavicle and right ribs. There is no demonstrated abnormality of the visualized soft tissue structures of the upper abdomen. RAD/Chest 1 View (Portable) IMPRESSION: No demonstrated acute cardiopulmonary process. Electronically Signed: Martha Miller MD at 1:54 EST ,
[2022-10-12 01:21] LABS: ALB/GLOB Ratio 0.9 RATIO (0.9-2.4); AST(SGOT) 13 U/L (15-37); Alanine Aminotransfer ALT/SGPT 23 U/L (13-56); Albumin, Serum 3.4 g/dL (3.2-5.0); Alkaline Phosphatase 97 U/L (45-117); Anion Gap 4 (5-15); BUN 18 mg/dL (7-18); BUN/Creat Ratio 30.8 RATIO (10-20); Calcium,Total 9.5 mg/dL (8.5-10.1); Chloride 102 mmol/L (98-107); Creatinine, Serum 0.58 mg/dL (0.55-1.02); EST Glomerular Filtration Rate 108 mL/min (>60); Est Glom Filt Rate - Afr Amer 131 mL/min (>60); Globulin 3.6 g/dL (2.2-4.2); Glucose 225 mg/dL (74-106); Potassium 4.1 mmol/L (3.5-5.1); Sodium Level 137 mmol/L (136-145)
--- NOTE | 2022-10-12 01:52 | CONS.ORTHO ---
HPI Consult Data Date of Consult: 10/12/22 HPI Narrative HPI Narrative: TYRONE PARTIDA, is a 72 F who presents mechanical fall: Right hip intertrochanteric fracture. Called by the ED physician today at approximately 1 AM came to see the patient. That a mechanical fall at home where startled by one of their children. They live with their kids in a house in [place]. Walks with a walker. Had a prior distal femur fracture open reduction internal fixation at an outside facility about 5 years ago as well as a left hip intramedullary nail number of years ago as well. No chest pain shortness of breath or head injury or loss of consciousness. [facility] Medical History (Updated 10/12/22 @ 01:[address] Hipolito Mcdaniel MD) Depression GERD (gastroesophageal reflux disease) Hyperlipidemia Right bundle branch block Type 2 diabetes mellitus without complication Home Medications metformin 500 mg tablet 1,000 mg PO BID diabetes 02/26/15 [History Last Taken 05/02/19] potassium chloride 20 mEq tablet,extended release(part/cryst) 20 meq PO DAILY SUPPLEMENT 12/12/18 [History Last Taken 05/02/19] gabapentin 400 mg capsule 600 mg PO TID 02/05/19 [History Last Taken 04/26/19] oxycodone-acetaminophen 5 mg-325 mg tablet 1 tab PO TID PRN PRN Pain 10/12/22 [History Last Taken Unknown] pioglitazone 15 mg tablet 15 mg PO DAILY 10/12/22 [History Last Taken Unknown] Allergy/AdvReac Type Severity Reaction Status Date / Time No Known Allergies Allergy Verified 10/11/22 16:17 Family History Mother Diabetes Heart disease Pacemaker Surgical History H/O excision of ganglion cyst History of cholecystectomy History of hammer toe correction History of loop recorder History of open reduction and internal fixation (ORIF) procedure History of tubal ligation Social History Smoking Status: Current every day smoker tobacco type: cigarettes quit status: considering quitting alcohol intake: never substance use type: does not use caffeine: Yes Type: coffee Number of servings: 2 Vital Signs Vital Signs Vital Signs: 10/11/22 16:18 10/11/22 22:00 10/12/22 00:17 Temperature 97.9 F Temperature Source Temporal Pulse Rate 89 80 Respiratory Rate 16 15 Respiratory Effort Normal Non-Labored Respiratory Depth Normal Respiratory Pattern Normal Blood Pressure 136/78 H 132/72 H Blood Pressure Mean 97 92 Pulse Ox 99 98 Oxygen Delivery Method Room Air Room Air 10/12/22 01:38 Temperature 97.6 F L Temperature Source Temporal Pulse Rate 89 Respiratory Rate 15 Respiratory Effort Respiratory Depth Respiratory Pattern Blood Pressure 141/74 H Blood Pressure Mean 96 Pulse Ox 98 Oxygen Delivery Method Room Air Weight Weight: 156 lb Body Mass Index (BMI) 26.7 Physical Exam Const alert, oriented x3 and no apparent distress Resp normal respiratory effort Cardio regular rate Extremity normal capillary refill and no calf tenderness Extremity Narrative: Right lower extremity: Close injury externally rotated. Normal sensation and motor function to the foot able to wiggle the toes. PANNUS. No overlying skin changes. No pain at the knee. There is a prior anterior midline incision at the knee as well as a small lateral incisions at the distal left femur these appear well-healed free of complications. Good dorsalis pedis pulse foot is warm and well-perfused. Lab / Micro Data Result Diagrams: 10/12/22 00:57 10/12/22 00:57 Labs: Laboratory Results - last 24 hr 10/12/22 00:57: WBC 6.4, RBC 4.23, Hgb 12.6, Hct 38.3, MCV 90.5, MCH 29.8, MCHC 32.9, RDW Std Deviation 41.6, RDW Coeff of Sandy 12.7, Plt Count 166, MPV 10.5, Immature Gran % (Auto) 0.300, Neut % (Auto) 81.3 H, Lymph % (Auto) 11.5 L, [place] % (Auto) 6.7, Eos % (Auto) 0.0, Baso % (Auto) 0.2, Absolute Neuts (auto) 5.2, Absolute Lymphs (auto) 0.74 L, Nucleated RBC % 0 10/12/22 00:57: PT 13.1, INR 1.0, APTT 25.8 10/12/22 00:57: Sodium 137, Potassium 4.1, Chloride 102, Carbon Dioxide 31.0, Anion Gap 4 L, BUN 18, Creatinine 0.58, Estim Creat Clear Calc 45.20, Est GFR (MDRD) Af Amer 131, Est GFR (MDRD) Non-Af 108, BUN/Creatinine Ratio 30.8 H, Glucose 225 H, Calcium 9.5, Total Bilirubin 0.40, AST 13 L, ALT 23, Alkaline Phosphatase 97, Total Protein 7.0, Albumin 3.4, Globulin 3.6, Albumin/Globulin Ratio 0.9 Radiology Impression Knee X-Ray 10/11/22 16:30 IMPRESSION: No acute bone or joint abnormality. Electronically Signed: William Rosas MD at 16:52 EST , Hip/Pelvis X-Ray 10/11/22 23:15 IMPRESSION: There is possible nondisplaced intertrochanteric fracture of the right femur. Electronically Signed: Martha Miller MD at 23:40 EST , There does appear to be a nondisplaced intertrochanteric right hip fracture. There is also a previously placed lateral plate for a well-healed distal femur fracture. Assessment & Plan Assessment/Plan (1) Hip fracture, right: PLAN: 72-year-old female with right hip intertrochanteric nondisplaced fracture. This is indicated for surgery in al but very medically unwell or unstable patients. Pros and cons risks and benefits of nonoperative versus operative means were discussed with the patient. For now nonweightbearing bedrest admitted under the hospitalist service. The patient is not on blood thinners. Patient will be optimized for surgery made n.p.o. in preparation. I discussed with the patient need for intramedullary nail and ideally this would be placed beyond the plate to avoid possible for stress riser and subsequent fracture if considering short intramedullary nail (that would be less than ideal). Ideally the proximal screws to be removed so that the nail can bypass the plate by 2 cortical widths occasionally, sometimes this is not possible to remove the hardware however I did consent the patient's right hip open reduction internal fixation and hardware removal. She understands wished to proceed signed the consent form for surgery right lower extremity marked and possible need for blood products as well. Pros and cons risks and benefits were discussed with the patient including but not limited to infection, pain, stiffness, bleeding, damage to surrounding structures, neurovascular injury, recurrence or retear, failure or wear of hardware or fixation, instability, fracture, deep vein thrombosis and pulmonary embolism, anesthetic risks, patient dissatisfaction, need for further surgery and other risks. Patient understood and wished to proceed with surgery, and signed the informed consent documentation.
[2022-10-12] MEDS: 0.9% Saline Lock 10 ML Syringe IV (03:01)
[2022-10-12] MEDS: Morphine 4 MG/ML Syringe IV (03:02)
[2022-10-12 03:31] LABS: Bedside Glucose 204 mg/dL (74-106)
[2022-10-12 04:10] LABS: Mucous, Urine 0 SEEN /hpf (<or=2+); Red Blood Cells-Urine 0 SEEN /hpf (0-5); Squamous Epithelial Cells - UA 0 SEEN /hpf (5-10)
[2022-10-12 04:12] LABS: Color, Urine Yellow (Yellow); Glucose, Dipstick 1000 mg/dl (Normal); Ketone-Dipstick 15 mg/dl (Negative); Leukocyte Esterase-Dipstick 500 /ul (Negative); Nitrite-Dipstick Positive (Negative); Occult Blood-Urine 10 /ul (Negative); Protein-Dipstick 30 mg/dl (Negative); Specific Gravity, Urine 1.015 (1.002-1.030); Urine Bilirubin Dipstick Negative (Negative); Urine Clarity Cloudy (Clear); Urine Urobilinogen 1 mg/dl (Normal)
[2022-10-12 04:17] LABS: Bacteria 3+ /hpf (None Seen); White Blood Cells >100 SEEN /hpf (0-5)
[2022-10-12] MEDS: Acetaminophen 500 MG Tablet 1000 MG PO ×2 (07:06→20:14)
[2022-10-12 07:40] LABS: Bedside Glucose 186 mg/dL (74-106)
--- NOTE | 2022-10-12 08:26 | PN.HOSP_ITS ---
Subjective Subjective Patient seen last night by the hospitalist. Patient has been down for surgery today. Objective Data Objective Data Vital Signs: Vital Signs Temp Pulse Resp BP Pulse Ox O2 Del Method O2 Flow Rate 37.3 C 100 18 143/76 H 94 Nasal Cannula 3 10/12/22 07:55 10/12/22 08:16 10/12/22 07:55 10/12/22 07:55 10/12/22 07:55 10/12/22 08:16 10/12/22 08:16 Oxygen Flow Rate (L/min) 3 Oxygen Delivery Method Nasal Cannula Weight: 66.6 kg Body Mass Index (BMI) 25.2 Intake & Output: Intake and Output for Last 24 Hours 10/10/22 10/11/22 10/12/22 23:59 23:59 23:59 Output Total 100 / 100 Balance -100 / -100 Lab / Micro Data Result Diagrams: 10/12/22 00:57 10/12/22 00:57 Labs: Laboratory Results - last 24 hr 10/12/22 00:57: WBC 6.4, RBC 4.23, Hgb 12.6, Hct 38.3, MCV 90.5, MCH 29.8, MCHC 32.9, RDW Std Deviation 41.6, RDW Coeff of Sandy 12.7, Plt Count 166, MPV 10.5, Immature Gran % (Auto) 0.300, Neut % (Auto) 81.3 H, Lymph % (Auto) 11.5 L, [place] % (Auto) 6.7, Eos % (Auto) 0.0, Baso % (Auto) 0.2, Absolute Neuts (auto) 5.2, Absolute Lymphs (auto) 0.74 L, Nucleated RBC % 0 10/12/22 00:57: PT 13.1, INR 1.0, APTT 25.8 10/12/22 00:57: Sodium 137, Potassium 4.1, Chloride 102, Carbon Dioxide 31.0, Anion Gap 4 L, BUN 18, Creatinine 0.58, Estim Creat Clear Calc 45.20, Est GFR (MDRD) Af Amer 131, Est GFR (MDRD) Non-Af 108, BUN/Creatinine Ratio 30.8 H, Glucose 225 H, Calcium 9.5, Total Bilirubin 0.40, AST 13 L, ALT 23, Alkaline Phosphatase 97, Total Protein 7.0, Albumin 3.4, Globulin 3.6, Albumin/Globulin Ratio 0.9 10/12/22 03:07: POC Glucose 204 H 10/12/22 05:40: Blood Type AB NEGATIVE, Antibody Screen NEGATIVE 10/12/22 07:09: POC Glucose 186 H 10/12/22 : Urine Color Yellow, Urine Clarity Cloudy, Urine pH 8.0, Ur Specific [place] 1.015, Urine Protein 30 H, Urine Glucose (UA) 1000 H, Urine Ketones 15 H , Urine Occult Blood 10 H, Urine Nitrite Positive H, Urine Bilirubin Negative, Urine Urobilinogen 1 H, Ur Leukocyte Esterase 500 H, Urine RBC 0 SEEN, Urine WBC >100 SEEN, Ur Squamous Epith Cells 0 SEEN, Urine Bacteria 3+, Urine Mucus 0 SEEN Radiography Diagnostic Testing: Radiology Impression Knee X-Ray 10/11/22 16:30 IMPRESSION: No acute bone or joint abnormality. Electronically Signed: William Rosas MD at 16:52 EST , Hip/Pelvis X-Ray 10/11/22 23:15 IMPRESSION: There is possible nondisplaced intertrochanteric fracture of the right femur. Electronically Signed: Martha Miller MD at 23:40 EST , Chest X-Ray 10/12/22 01:15 IMPRESSION: No demonstrated acute cardiopulmonary process. Electronically Signed: Martha Miller MD at 1:54 EST , Assessment & Plan Assessment/Plan (1) Hip fracture, right: PLAN: Right hip fracture Emergent department doctor discussed the case with Dr. Power. Inpatient consult for orthopedic surgery. Morphine IV and oxycodone as needed ordered. Tylenol as needed ordered. Bowel protocol and antiemetics IV ordered. Keep n.p.o. While n.p.o. lactated Ringer's ordered. Check vitamin D level. Preoperative EKG unremarkable ACS NSQIP surgical risk calculator with below surgical risk. Check 25-hydroxy vitamin D (2) Diabetes mellitus type 2 in nonobese: PLAN: Diabetes mellitus Patient with hyperglycemia on presentation Home pioglitazone continued. Metformin held. Monitor Accu-Cheks Correction scale insulin ordered. (3) UTI (urinary tract infection): PLAN: Positive urinalysis. Check urine culture. Start ceftriaxone AFTER cult ure. PLAN: Plan Tobacco abuse Counseled Nicotine patch prescribed. DVT prophylaxis SCDs ordered
[2022-10-12] MEDS: Lactated Ringers 1,000 ML 15 ML IV ×2 (09:00→15:13)
--- NOTE | 2022-10-12 12:18 | PCM.PN.ORT ---
Subjective Subjective Pain to right hip Objective Data Objective Data right IT fracture, distal femur plate Vital Signs: Vital Signs Temp Pulse Resp BP Pulse Ox O2 Del Method O2 Flow Rate 99.1 F 100 16 143/76 H 86 Nasal Cannula 3 10/12/22 07:55 10/12/22 08:16 10/12/22 08:15 10/12/22 07:55 10/12/22 08:15 10/12/22 08:16 10/12/22 08:16 Oxygen Flow Rate (L/min) 3 Oxygen Delivery Method Nasal Cannula Weight: 146 lb 13.246 oz Body Mass Index (BMI) 25.2 Intake & Output: Intake and Output for Last 24 Hours 10/10/22 10/11/22 10/12/22 23:59 23:59 23:59 Output Total 100 / 100 Balance -100 / -100 Lab / Micro Data Result Diagrams: 10/12/22 00:57 10/12/22 00:57 Labs: Laboratory Results - last 24 hr 10/12/22 00:57: WBC 6.4, RBC 4.23, Hgb 12.6, Hct 38.3, MCV 90.5, MCH 29.8, MCHC 32.9, RDW Std Deviation 41.6, RDW Coeff of Sandy 12.7, Plt Count 166, MPV 10.5, Immature Gran % (Auto) 0.300, Neut % (Auto) 81.3 H, Lymph % (Auto) 11.5 L, [place] % (Auto) 6.7, Eos % (Auto) 0.0, Baso % (Auto) 0.2, Absolute Neuts (auto) 5.2, Absolute Lymphs (auto) 0.74 L, Nucleated RBC % 0 10/12/22 00:57: PT 13.1, INR 1.0, APTT 25.8 10/12/22 00:57: Sodium 137, Potassium 4.1, Chloride 102, Carbon Dioxide 31.0, Anion Gap 4 L, BUN 18, Creatinine 0.58, Estim Creat Clear Calc 45.20, Est GFR (MDRD) Af Amer 131, Est GFR (MDRD) Non-Af 108, BUN/Creatinine Ratio 30.8 H, Glucose 225 H, Calcium 9.5, Total Bilirubin 0.40, AST 13 L, ALT 23, Alkaline Phosphatase 97, Total Protein 7.0, Albumin 3.4, Globulin 3.6, Albumin/Globulin Ratio 0.9 10/12/22 03:07: POC Glucose 204 H 10/12/22 05:40: Blood Type AB NEGATIVE, Antibody Screen NEGATIVE 10/12/22 07:09: POC Glucose 186 H 10/12/22 : Urine Color Yellow, Urine Clarity Cloudy, Urine pH 8.0, Ur Specific [place] 1.015, Urine Protein 30 H, Urine Glucose (UA) 1000 H, Urine Ketones 15 H, Urine Occult Blood 10 H, Urine Nitrite Positive H, Urine Bilirubin Negative, Urine Urobilinogen 1 H, Ur Leukocyte Esterase 500 H, Urine RBC 0 SEEN, Urine WBC >100 SEEN, Ur Squamous Epith Cells 0 SEEN, Urine Bacteria 3+, Urine Mucus 0 SEEN Radiography Diagnostic Testing: Radiology Impression Knee X-Ray 10/11/22 16:30 IMPRESSION: No acute bone or joint abnormality. Electronically Signed: William Rosas MD at 16:52 EST , Hip/Pelvis X-Ray 10/11/22 23:15 IMPRESSION: There is possible nondisplaced intertrochanteric fracture of the right femur. Electronically Signed: Martha Miller MD at 23:40 EST , Chest X-Ray 10/12/22 01:15 IMPRESSION: No demonstrated acute cardiopulmonary process. Electronically Signed: Martha Miller MD at 1:54 EST , Physical Exam Const alert Constitutional Narrative: wiggles toes Assessment & Plan Assessment/Plan (1) Intertrochanteric fracture of right hip: PLAN: 72 F right hip fracture. Plan for long nail and hardware removal to avoid stress riser, other lowe short nail if unable to bypass plate. OK to proceed.
[2022-10-12] MEDS: Ceftriaxone 1 GM/50 ML BAG IV (12:25)
--- NOTE | 2022-10-12 12:33 | RAD_ITS ---
STUDY: INTRAOPERATIVE FLUOROSCOPY TECHNIQUE: The examination was performed with referring physician in attendance. Under fluoroscopic observation, fluoroscopic images were obtained. Radiologist was not present for the study. Radiologist did not perform the procedure. This dictation is for documentation of the radiation dosage only. There is no interpretation of the images. TOTAL NUMBER OF IMAGES: 1 COMPARISON: None RADIATION DOSE: 28.37 mGy FLUOROSCOPY TIME: 216.9 seconds REASON FOR EXAM: RIGHT HIP OR Female, 72 years old. FINDINGS: IM nail in place. Intramedullary lisa in place. There is a metal sideplate transfixing the distal femur. There are cortical screws holding the plate in place. RAD/HIP, UNI W/ Pelvis 2-3 Views IMPRESSION: Fluoroscopic assistance images were obtained. Dictation for documentation purposes only. Electronically Signed: To Chaudhry MD at 14:35 EST ,
--- NOTE | 2022-10-12 14:50 | PCM.OPRPT ---
Problems Associated Problem List Diagnoses (1) Intertrochanteric fracture of right hip: Report of Operation Date of Procedure: 10/12/22 Pre-Operative Diagnosis: Right hip intertrochanteric fracture Post-Operative Diagnosis: Same Surgery/Procedure Performed:: right hip ORIF IM nail, complicated by distal femur and replating Surgeon: Parth Power Type of Anesthesia: General and Local Anesthesiologist: Kaylynn Salas Estimated Blood Loss (mL): 150 Description of Procedure: Patient brought to the operating room theater. Placed supine on the operating room table. 2 g IV Ancef administered prior to the start of the case. General anesthesia induced. Patient placed supine on the traction fracture table. Right leg in traction left leg appropriately padded attached to the metal post. SCD on the nonoperative side. Right lower extremity prepped and draped in the usual sterile fashion with chlorhexidine-based prep solution allowing over 3 minutes drying time prior to draping. Preoperative timeout performed to confirm the site patient and surgery. I began by making lateral based incisions at the proximal end of the distal femur plate to remove the screws. Incised through skin and subcutaneous tissue achieved meticulous hemostasis. Incised the tensor fascia rosa maria in line with skin incision and used blunt dissection to identify the lateral aspect of the plate and screws. I removed proximal screws from the plate with the plan to leave the most distal screws in place and pass the nail beyond the proximal end of the plate. Unfortunately, the patient experienced a intraoperative fracture when I took out the final screw therefore I had to replace the screws proximal at least 4 screws proximal to the fracture site to maintain the reduction there. As such my decision in order to proceed with the original plan was possibly use cables around the proximal end of the plate or to replace the plate with the existing screws, and choose a shorter nail and accept a possible stress riser in that area. I chose the latter due to the still good fixation of the screws and good alignment of the fracture at the metaphyseal area of the distal femur with the plate. Measured to try to still get as long of a nail as possible to be overlapping the proximal end of the plate. Given the location of the plate and the screws this was only possible for me to achieve a small amount of overlap with a short José Miguel gamma 180 mm nail, 130 degree. I made a small longitudinal incision proximal to the greater trochanter of the femur. Dissection down through skin subcutaneous tissue achieved meticulous hemostasis. I inserted the partially-threaded guidewire to the level of the greater trochanter aiming down the center of the femur on the lateral x-ray and towards the lesser trochanter. I used a soft tissue protector followed by the opening reamer. I then passed ball-tipped guidewire through the reamed entry point. I then passed the 180 mm gamma nail over top of the guidewire with the drop-down guide. Removed the ball tip guidewire. I then passed again guide wire, using percutaneous center of the femoral head into the subchondral bone erring inferiorly and posteriorly. I reamed to 100 mm and inserted 100 mm compression screw to an appropriate depth. I used the setscrew proximally locked this and then turned it back a quarter turn for compression. I then used again the drop-down guide to insert the distal fully threaded cortical screw in a transverse manner. There was some small amount of overlap of the distal end of the nail and the proximal end of the plate. Case was terminated wound thoroughly irrigated with normal saline followed by closure of the tensor fascia rosa maria with #1 Vicryl suture subcutaneous tissue with 2-0 Vicryl and skin with 3-0 Monocryl. 10 cc quarter percent bupivacaine instilled in and around the soft tissues. Skin cleaned with wet and dry dressing followed application of Steri-Strips and silver Mepilex border. Patient woken up from the general anesthetic transferred off the operating room table and taken to postanesthetic care unit in stable condition. All sponge needle instrument counts were correct. Plan to the patient protected weightbearing for least 6 weeks and be readmitted under the hospitalist service VT prophylaxis starting postop day 1 with oral Xarelto. Complications intra op distal femur fracture after hardware removal Admit VTE Documentation VTE Present on Admission: No VTE Mechan Device Prophylaxis: SCD's VTE Pharm Prophylaxis ordered?: Yes Procedures Musculoskeletal [id number]: Other Procedure See Report
[2022-10-12 15:35] LABS: Bedside Glucose 226 mg/dL (74-106)
[2022-10-12 17:10] LABS: Bedside Glucose 239 mg/dL (74-106)
[2022-10-12] MEDS: Insulin Lispro 100 UNIT/ML INSULN.PEN SC (17:16)
--- NOTE | 2022-10-12 17:16 | CASEMGMT ---
Social Work SW met w/pt in room, just back from surgery. SW reviewed prior level of function and anticipated discharge plan. PCP: Dr. Ritter Specialists: None Pharmacy: [facility] [place] Insurance: [employer] LNOK: Two sons, one daughter, daughter in law and son in law Living arrangements: Pt lives w/son(Xu), daughter in law, daughter, son in law. She states someone is always home. LW/POA: Has not completed, declined to complete on this hospitalization Prior level of function: Pt independent in caring for herself, organizes her own medications. The children do the cooking and cleaning, and driving. DME: Pt uses a walker at home, cane in the community HHC/SNF: Pt has had home health, has not been to SNF in the past. Plan: Pt states wants to go home, does not want to go anywhere for rehab. She is open to home health. SW explained we will see how it goes w/PT and SW/VITALY to follow up on Friday. WILMER Quintana
[2022-10-12] MEDS: Gabapentin 600 MG Tablet PO (20:14)
[2022-10-12] MEDS: Senna/Docusate Sodium 1 Tablet 2 TABLET PO (20:15)
[2022-10-13] VITALS (13 sets, daily range): BP systolic 98–120; BP diastolic 58–75; PULSE 79–98; RESP 16–22; TEMP 36.6–37.3; O2SAT 85–95
[2022-10-13] MEDS: Insulin Lispro 100 UNIT/ML INSULN.PEN SC ×4 (00:57→17:46)
[2022-10-13] MEDS: 0.9% Saline Lock 10 ML Syringe IV (00:58)
[2022-10-13 03:31] LABS: Bedside Glucose 239 mg/dL (74-106)
[2022-10-13] MEDS: Acetaminophen 500 MG Tablet 1000 MG PO ×3 (05:11→23:31)
[2022-10-13] MEDS: Gabapentin 600 MG Tablet PO ×3 (05:11→23:31)
[2022-10-13 07:13] LABS: Absolute Lymphocyte Count 0.91 X10^3/uL (0.83-4.51); Absolute Neutrophil Count 5.3 X10^3/uL (2.0-7.7); Basophil# 0.01 X10^3/uL; Basophil% 0.1 % (0-1); Hematocrit 33.2 % (37-47); Hemoglobin 11.1 g/dL (12.0-15.0); Lymphocyte # 0.91 X10^3/ul (0.83-4.51); Lymphocyte % 13.2 % (19-41); Mean Corp Hgb Conc 33.4 g/dL (32-36); Mean Corpuscular Hgb 30.2 pg (27.0-32.0); Mean Corpuscular Volume 90.5 fL (81-99); Mean Platelet Vol. 11.1 fl (6.2-12.0); Monocyte% 10.1 % (0-10); NRBC Flagged by Analyzer 0 % (0-5); Neutrophil # 5.27 X10^3/uL (2.7-7.7); Neutrophil % 76.3 % (47-70); Platelet Count 128 K/mm3 (150-450); RBC Distribution Width CV 12.8 % (11.6-14.6); RBC Distribution Width SD 42.2 fl (35.1-43.9); Red Blood Count 3.67 M/mm3 (4.2-5.4); White Blood Count 6.9 K/mm3 (4.4-11.0)
[2022-10-13 07:15] LABS: Bedside Glucose 200 mg/dL (74-106)
[2022-10-13 07:44] LABS: Anion Gap 7 (5-15); BUN 18 mg/dL (7-18); BUN/Creat Ratio 33.2 RATIO (10-20); Calcium,Total 8.5 mg/dL (8.5-10.1); Chloride 103 mmol/L (98-107); Creatinine, Serum 0.54 mg/dL (0.55-1.02); EST Glomerular Filtration Rate 118 mL/min (>60); Est Glom Filt Rate - Afr Amer 143 mL/min (>60); Glucose 196 mg/dL (74-106); Potassium 4.1 mmol/L (3.5-5.1); Sodium Level 136 mmol/L (136-145)
--- NOTE | 2022-10-13 08:44 | PN.HOSP_ITS ---
Subjective Subjective Feels well. Has been up with therapy without difficulty. Objective Data Objective Data Vital Signs: Vital Signs Temp Pulse Resp BP Pulse Ox O2 Del Method O2 Flow Rate 36.6 C 82 20 H 109/58 L 94 Nasal Cannula 2 10/13/22 05:18 10/13/22 05:18 10/13/22 05:18 10/13/22 05:18 10/13/22 05:18 10/13/22 05:18 10/13/22 05:18 Oxygen Flow Rate (L/min) 2 Oxygen Delivery Method Nasal Cannula Weight: 66.6 kg Body Mass Index (BMI) 25.2 Intake & Output: Intake and Output for Last 24 Hours 10/11/22 10/12/22 10/13/22 23:59 23:59 23:59 Intake Total 1160 / 1160 146.5 / 146.5 Output Total 100 / 475 375 / 375 Balance 1060 / 685 -228.5 / -228.5 Lab / Micro Data Result Diagrams: 10/13/22 07:00 10/13/22 07:00 Labs: Laboratory Results - last 24 hr 10/12/22 15:17: POC Glucose 226 H 10/12/22 16:50: POC Glucose 239 H 10/13/22 00:53: POC Glucose 239 H 10/13/22 05:27: POC Glucose 200 H 10/13/22 07:00: WBC 6.9, RBC 3.67 L, Hgb 11.1 L, Hct 33.2 L, MCV 90.5, MCH 30.2, MCHC 33.4, RDW Std Deviation 42.2, RDW Coeff of Sandy 12.8, Plt Count 128 L, MPV 11.1, Immature Gran % (Auto) 0.300, Neut % (Auto) 76.3 H, Lymph % (Auto) 13.2 L, [place] % (Auto) 10.1 H, Eos % (Auto) 0.0, Baso % (Auto) 0.1, Absolute Neuts (auto) 5.3, Absolute Lymphs (auto) 0.91, Nucleated RBC % 0 10/13/22 07:00: Sodium 136, Potassium 4.1, Chloride 103, Carbon Dioxide 26.0, Anion Gap 7, BUN 18, Creatinine 0.54 L, Estim Creat Clear Calc 45.20, Est GFR (MDRD) Af Amer 143, Est GFR (MDRD) Non-Af 118, BUN/Creatinine Ratio 33.2 H, Glucose 196 H, Calcium 8.5 Radiography Diagnostic Testing: Radiology Impression Hip/Pelvis X-Ray 10/12/22 12:33 IMPRESSION: Fluoroscopic assistance images were obtained. Dictation for documentation purposes only. Electronically Signed: To Chaudhry MD at 14:35 EST Reading Location ID and State: [facility] / [place] , Service support , Physical Exam Const alert and no apparent distress Resp normal respiratory effort Cardio regular rate, regular rhythm, S1 normal heart sound and S2 normal heart sound GI normal to inspection, nondistended, normoactive bowel sounds and soft to palpation Extremity normal to inspection Assessment & Plan Assessment/Plan (1) Hip fracture, right: PLAN: Patient underwent right hip ORIF IM nail on 10/12 Protected weightbearing PT OT, evaluate for rehab needs Follow-up 25-hydroxy vitamin D level (2) Diabetes mellitus type 2 in nonobese: PLAN: Diabetes mellitus Patient with hyperglycemia on presentation Home pioglitazone continued. Metformin held. Monitor Accu-Cheks Correction scale insulin ordered. (3) UTI (urinary tract infection): PLAN: Positive urinalysis. Urine culture ordered but not performed, the requested to ceftriaxone be administered after urine culture performed but that appears not to be the case. Will oil changer to Macrobid for 5-day course. PLAN: Plan Tobacco abuse Counseled Nicotine patch prescribed. DVT prophylaxis rivaroxaban Disposition: To be determined. Patient states that she wants to go home with home care as she has family able to care for her. Will verify this further on the th either home with home care or care home facility. Charges/Coding Visit Charges Inpatient E&M: 54552 Subs Hosp L2
[2022-10-13] MEDS: Potassium Chloride Oral Tablet 20 MEQ PO (10:06)
[2022-10-13] MEDS: Pioglitazone Hydrochloride 15 MG Tablet PO (10:06)
[2022-10-13] MEDS: Nitrofurantoin Macrocrystals 100 MG Capsule PO ×2 (10:06→23:32)
[2022-10-13] MEDS: Senna/Docusate Sodium 1 Tablet 2 TABLET PO ×2 (10:07→23:31)
--- NOTE | 2022-10-13 13:08 | PCM.PN.ORT ---
Subjective Subjective Doing very well. Up eating, sitting in chair good appetite. Pain controlled. Objective Data Objective Data Vital Signs: Vital Signs Temp Pulse Resp BP Pulse Ox O2 Del Method O2 Flow Rate 98 F 90 18 110/60 91 Nasal Cannula 2 10/13/22 08:30 10/13/22 10:00 10/13/22 10:00 10/13/22 08:30 10/13/22 10:00 10/13/22 10:00 10/13/22 10:00 Oxygen Flow Rate (L/min) 2 Oxygen Delivery Method Nasal Cannula Weight: 146 lb 13.246 oz Body Mass Index (BMI) 25.2 Intake & Output: Intake and Output for Last 24 Hours 10/11/22 10/12/22 10/13/22 23:59 23:59 23:59 Intake Total 1160 / 1160 546.5 / 546.5 Output Total 100 / 475 375 / 375 Balance 1060 / 685 171.5 / 171.5 Lab / Micro Data Attestation: I reviewed the patient's lab results. Result Diagrams: 10/13/22 07:00 10/13/22 07:00 Labs: Laboratory Results - last 24 hr 10/12/22 15:17: POC Glucose 226 H 10/12/22 16:50: POC Glucose 239 H 10/13/22 00:53: POC Glucose 239 H 10/13/22 05:27: POC Glucose 200 H 10/13/22 07:00: WBC 6.9, RBC 3.67 L, Hgb 11.1 L, Hct 33.2 L, MCV 90.5, MCH 30.2, MCHC 33.4, RDW Std Deviation 42.2, RDW Coeff of Sandy 12.8, Plt Count 128 L, MPV 11.1, Immature Gran % (Auto) 0.300, Neut % (Auto) 76.3 H, Lymph % (Auto) 13.2 L, [place] % (Auto) 10.1 H, Eos % (Auto) 0.0, Baso % (Auto) 0.1, Absolute Neuts (auto) 5.3, Absolute Lymphs (auto) 0.91, Nucleated RBC % 0 10/13/22 07:00: Sodium 136, Potassium 4.1, Chloride 103, Carbon Dioxide 26.0, Anion Gap 7, BUN 18, Creatinine 0.54 L, Estim Creat Clear Calc 45.20, Est GFR (MDRD) Af Amer 143, Est GFR (MDRD) Non-Af 118, BUN/Creatinine Ratio 33.2 H, Glucose 196 H, Calcium 8.5 Radiography Diagnostic Testing: Radiology Impression Hip/Pelvis X-Ray 10/12/22 12:33 IMPRESSION: Fluoroscopic assistance images were obtained. Dictation for documentation purposes only. Electronically Signed: To Chaudhry MD at 14:35 EST , Physical Exam Const alert, oriented x3 and no apparent distress Constitutional Narrative: drsg dry, thigh soft, normal sens and motor function to the foot, warm well perfused. Assessment & Plan Assessment/Plan (1) Hip fracture, right: PLAN: POD 1 right hip ORIF, complicated by refracture and distal femur. Plan for toe touch weight bearing 6 weeks with walker.
[2022-10-13 13:40] LABS: Bedside Glucose 431 mg/dL (74-106)
[2022-10-13] MEDS: oxyCODONE 5 MG Tablet PO (15:31)
[2022-10-13] MEDS: Rivaroxaban 10 MG Tablet PO (17:42)
[2022-10-13 18:10] LABS: Bedside Glucose 318 mg/dL (74-106)
[2022-10-14] VITALS (15 sets, daily range): BP systolic 83–140; BP diastolic 43–68; PULSE 85–99; RESP 16–22; TEMP 36.6–37.2; O2SAT 85–97
[2022-10-14] MEDS: Insulin Lispro 100 UNIT/ML INSULN.PEN SC ×5 (00:09→21:44)
[2022-10-14] MEDS: 0.9% Saline Lock 10 ML Syringe IV ×2 (00:11→21:38)
[2022-10-14 00:50] LABS: Bedside Glucose 250 mg/dL (74-106)
[2022-10-14] MEDS: oxyCODONE 5 MG Tablet PO ×2 (04:04→10:43)
--- NOTE | 2022-10-14 04:37 | CT_ITS ---
EXAM: CT ANGIOGRAPHY CHEST WITHOUT AND WITH INTRAVENOUS CONTRAST CLINICAL INDICATION: pulmonary embolism TECHNIQUE: Helically acquired angiography images were obtained of the chest without and with intravenous contrast. This CT exam was performed using one or more of the following dose reduction techniques: automated exposure control, adjustment of the mA and/or kV according to patient size, and/or use of iterative reconstruction technique. This report was created using [employer] report generation technology. MIP reconstructed images were created and reviewed. CONTRAST: IV 100mL Isovue-370 RADIATION DOSE: CTDIvol = 11.43 mGy, DLP = 364.42 mGy-cm. COMPARISON: None. FINDINGS: PULMONARY ARTERIES: Unremarkable. Normal in caliber. No evidence of pulmonary embolism. AORTA: Mild calcification of the intra-abdominal aorta. Normal in caliber. No evidence of dissection. GREAT VESSELS OF AORTIC ARCH: Calcification at the origins of the great vessels, no high-grade stenosis. No evidence of dissection. LUNGS AND PLEURAL SPACES: Trace pleural effusion or thickening at the extreme posterior lung bases. No significant infiltrate or effusion. Mildly thickened appearance of the airways may be due to asthma or bronchitis. No mass. HEART: Moderate calcification or stent in left anterior descending coronary artery. Normal heart size. Left ventricular wall and septal suspected hypertrophy. No intracardiac filling defect. No pericardial effusion. No signs of right heart strain, ratio of right ventricle to left ventricle measures less than 1. MEDIASTINUM: Unremarkable. No mediastinal or hilar adenopathy. Esophagus is unremarkable. No hiatal hernia. THYROID: Unremarkable. No thyroid lesions. BONES/JOINTS: Unremarkable. No suspicious lytic or blastic abnormality. GALLBLADDER AND BILE DUCTS: Most of the upper abdomen is not included. Region of the gallbladder and proximal pancreas is not included. CT/CTA Chest W/WO Contrast IMPRESSION: 1. No evidence of PE or aortic aneurysm or dissection. 2. Coronary artery calcification versus stent. 3. Minimal dependent atelectasis or mild pleural effusion at the posterior lung bases. 4. Mild airway thickening. Electronically Signed: Kellen Conley MD at 6:32 EST ,
[2022-10-14] MEDS: Acetaminophen 500 MG Tablet 1000 MG PO ×3 (05:38→21:37)
[2022-10-14] MEDS: Gabapentin 600 MG Tablet PO ×3 (05:39→23:16)
[2022-10-14 07:00] LABS: Bedside Glucose 207 mg/dL (74-106)
[2022-10-14 08:05] LABS: Vitamin D,25 Hydroxy 34.1 ng/mL
[2022-10-14] MEDS: Senna/Docusate Sodium 1 Tablet 2 TABLET PO ×2 (08:14→21:38)
[2022-10-14] MEDS: Potassium Chloride Oral Tablet 20 MEQ PO (08:14)
[2022-10-14] MEDS: Nitrofurantoin Macrocrystals 100 MG Capsule PO ×2 (08:14→21:38)
[2022-10-14] MEDS: Pioglitazone Hydrochloride 15 MG Tablet PO (08:16)
[2022-10-14 12:00] LABS: Bedside Glucose 268 mg/dL (74-106)
--- NOTE | 2022-10-14 16:24 | CASEMGMT ---
Social Work SW in to meet with pt to discuss discharge plan. Pt not happy, asked SW to leave as she was trying to sleep. SW will check in with pt tomorrow. WEI Godinez
[2022-10-14] MEDS: Rivaroxaban 10 MG Tablet PO (16:33)
[2022-10-14 17:00] LABS: Bedside Glucose 255 mg/dL (74-106)
--- NOTE | 2022-10-14 17:24 | PCM.PN.HOSP ---
Subjective Subjective Has had an O2 requirement, denies significant shortness of breath, is beginning to feel slightly better and is trying to work with therapy, does not want to go to SNF and requesting to go home Objective Data Objective Data Vital Signs: Vital Signs Temp Pulse Resp BP Pulse Ox O2 Del Method O2 Flow Rate 98.3 F 89 20 H 140/66 H 97 Nasal Cannula 5 10/14/22 10:36 10/14/22 10:36 10/14/22 10:36 10/14/22 10:36 10/14/22 11:31 10/14/22 14:39 10/14/22 11:31 FiO2 4 10/14/22 14:39 Oxygen Flow Rate (L/min) 5 Oxygen Delivery Method Nasal Cannula Weight: 66.6 kg Body Mass Index (BMI) 25.2 Intake & Output: Intake and Output for Last 24 Hours 10/12/22 10/13/22 10/14/22 23:59 23:59 23:59 Intake Total 1160 / 1160 846.5 / 846.5 400 / 400 Output Total 100 / 475 375 / 375 Balance 1060 / 685 471.5 / 471.5 400 / 400 Lab / Micro Data Result Diagrams: 10/13/22 07:00 10/13/22 07:00 Labs: Laboratory Results - last 24 hr 10/12/22 05:40: Vitamin D 25-Hydroxy 34.1 10/13/22 17:45: POC Glucose 318 H 10/13/22 23:46: POC Glucose 250 H 10/14/22 05:37: POC Glucose 207 H 10/14/22 11:19: POC Glucose 268 H 10/14/22 16:30: POC Glucose 255 H Radiography Diagnostic Testing: Radiology Impression Chest CTA 10/14/22 04:37 IMPRESSION: 1. No evidence of PE or aortic aneurysm or dissection. 2. Coronary artery calcification versus stent. 3. Minimal dependent atelectasis or mild pleural effusion at the posterior lung bases. 4. Mild airway thickening. Electronically Signed: Kellen Conley MD at 6:32 EST , Physical Exam Const alert and no apparent distress Constitutional Narrative: Oriented HEENT normocephalic and head/scalp atraumatic Eyes Eyes Narrative: EOM grossly intact, anicteric Neck supple Resp normal respiratory effort Resp Narrative: Slight scattered wheezes Cardio regular rate and regular rhythm GI soft to palpation, non-tender and non-distended Extremity Extremity Narrative: No edema appreciated Neuro moves all extremities Neuro Narrative: No overt focal deficits appreciated Psych Psych Narrative: Cooperative Assessment & Plan Assessment/Plan (1) Hip fracture, right: PLAN: Plan #Right hip fracture status post ORIF 10/12 Pain control PT/OT Refusing SNF, potentially could go home pending progress with therapy Samantha through 11/12/2022 #Type 2 diabetes mellitus Pioglitazone, Accu-Cheks, sliding scale insulin #Tobacco use Nicotine patch #UTI (urinary tract infection): Positive urinalysis. Urine culture ordered but not performed, the requested to ceftriaxone be administered after urine culture performed but it was given prior Changed over to Macrobid for 5-day course. #DVT ppx: Samantha Flores MD Charges/Coding Visit Charges Inpatient E&M: 64855 Subs Hosp L2
[2022-10-15] VITALS (7 sets, daily range): BP systolic 106–150; BP diastolic 60–75; PULSE 78–94; RESP 16–20; TEMP 36.4–37.2; O2SAT 85–98
[2022-10-15 01:55] LABS: Bedside Glucose 326 mg/dL (74-106)
[2022-10-15] MEDS: Acetaminophen 500 MG Tablet 1000 MG PO ×3 (04:42→20:32)
[2022-10-15] MEDS: oxyCODONE 5 MG Tablet PO ×2 (04:43→14:48)
[2022-10-15] MEDS: Gabapentin 600 MG Tablet PO ×3 (04:43→20:34)
[2022-10-15] MEDS: Insulin Lispro 100 UNIT/ML INSULN.PEN SC ×4 (07:03→20:31)
[2022-10-15 07:24] LABS: Absolute Lymphocyte Count 1.08 X10^3/uL (0.83-4.51); Absolute Neutrophil Count 5.3 X10^3/uL (2.0-7.7); Basophil# 0.03 X10^3/uL; Basophil% 0.4 % (0-1); Eosinophil# 0.05 X10^3/uL; Eosinophils% 0.7 % (0-5); Hematocrit 32.6 % (37-47); Hemoglobin 10.8 g/dL (12.0-15.0); Lymphocyte # 1.08 X10^3/ul (0.83-4.51); Lymphocyte % 15.6 % (19-41); Mean Corp Hgb Conc 33.1 g/dL (32-36); Mean Corpuscular Hgb 30.9 pg (27.0-32.0); Mean Corpuscular Volume 93.4 fL (81-99); Mean Platelet Vol. 10.9 fl (6.2-12.0); Monocyte# 0.46 X10^3/uL; Monocyte% 6.6 % (0-10); NRBC Flagged by Analyzer 0 % (0-5); Neutrophil # 5.28 X10^3/uL (2.7-7.7); Neutrophil % 76.4 % (47-70); Platelet Count 157 K/mm3 (150-450); RBC Distribution Width CV 12.8 % (11.6-14.6); RBC Distribution Width SD 43.8 fl (35.1-43.9); Red Blood Count 3.49 M/mm3 (4.2-5.4); White Blood Count 6.9 K/mm3 (4.4-11.0)
[2022-10-15 07:31] LABS: Bedside Glucose 197 mg/dL (74-106)
[2022-10-15 07:54] LABS: Anion Gap 6 (5-15); BUN 16 mg/dL (7-18); BUN/Creat Ratio 34.5 RATIO (10-20); Calcium,Total 8.8 mg/dL (8.5-10.1); Chloride 100 mmol/L (98-107); Creatinine, Serum 0.46 mg/dL (0.55-1.02); EST Glomerular Filtration Rate 141 mL/min (>60); Est Glom Filt Rate - Afr Amer 171 mL/min (>60); Glucose 198 mg/dL (74-106); Sodium Level 136 mmol/L (136-145)
[2022-10-15] MEDS: Potassium Chloride Oral Tablet 20 MEQ PO (08:13)
[2022-10-15] MEDS: Pioglitazone Hydrochloride 15 MG Tablet PO (08:14)
[2022-10-15] MEDS: Nitrofurantoin Macrocrystals 100 MG Capsule PO ×2 (08:14→20:32)
[2022-10-15] MEDS: Senna/Docusate Sodium 1 Tablet 2 TABLET PO ×2 (08:15→20:32)
--- NOTE | 2022-10-15 09:10 | PCM.PN.HOSP ---
Subjective Subjective On 4 L O2 today, denies complaints with her breathing at this time. Has been trying to do PT exercises while in bed Objective Data Objective Data Vital Signs: Vital Signs Temp Pulse Resp BP Pulse Ox O2 Del Method O2 Flow Rate 97.8 F 86 16 106/61 93 Nasal Cannula 4 10/15/22 08:02 10/15/22 08:02 10/15/22 08:02 10/15/22 08:02 10/15/22 08:13 10/15/22 08:13 10/15/22 08:13 FiO2 4 10/14/22 14:39 Oxygen Flow Rate (L/min) 4 Oxygen Delivery Method Nasal Cannula Weight: 66.6 kg Body Mass Index (BMI) 25.2 Intake & Output: Intake and Output for Last 24 Hours 10/13/22 10/14/22 10/15/22 23:59 23:59 23:59 Intake Total 846.5 / 846.5 400 / 400 Output Total 375 / 375 Balance 471.5 / 471.5 400 / 400 Lab / Micro Data Result Diagrams: 10/15/22 06:50 10/15/22 06:50 Labs: Laboratory Results - last 24 hr 10/14/22 11:19: POC Glucose 268 H 10/14/22 16:30: POC Glucose 255 H 10/14/22 21:43: POC Glucose 326 H 10/15/22 06:50: WBC 6.9, RBC 3.49 L, Hgb 10.8 L, Hct 32.6 L, MCV 93.4, MCH 30.9, MCHC 33.1, RDW Std Deviation 43.8, RDW Coeff of Sandy 12.8, Plt Count 157, MPV 10.9, Immature Gran % (Auto) 0.300, Neut % (Auto) 76.4 H, Lymph % (Auto) 15.6 L, [place] % (Auto) 6.6, Eos % (Auto) 0.7, Baso % (Auto) 0.4, Absolute Neuts (auto) 5.3, Absolute Lymphs (auto) 1.08, Nucleated RBC % 0 10/15/22 06:50: Sodium 136, Potassium 4.0, Chloride 100, Carbon Dioxide 30.0, Anion Gap 6, BUN 16, Creatinine 0.46 L, Estim Creat Clear Calc 45.20, Est GFR (MDRD) Af Amer 171, Est GFR (MDRD) Non-Af 141, BUN/Creatinine Ratio 34.5 H, Glucose 198 H, Calcium 8.8 10/15/22 07:00: POC Glucose 197 H Physical Exam Const alert and no apparent distress Constitutional Narrative: Oriented HEENT normocephalic and head/scalp atraumatic Eyes Eyes Narrative: EOM grossly intact, anicteric Neck supple Resp normal respiratory effort Resp Narrative: Slight scattered wheezes Cardio regular rate and regular rhythm GI soft to palpation, non-tender and non-distended Extremity Extremity Narrative: No edema appreciated Neuro moves all extremities Neuro Narrative: No overt focal deficits appreciated Psych Psych Narrative: Cooperative Assessment & Plan Assessment/Plan (1) Hip fracture, right: PLAN: Plan #Right hip fracture status post ORIF 10/12 Pain control PT/OT Refusing SNF, potentially could go home pending progress with therapy Samantha through 11/12/202210/15: Continues to refuse to go to skilled facility, pending progress and respiratory status tomorrow may DC home with family and home health #Type 2 diabetes mellitus Pioglitazone, Accu-Cheks, sliding scale insulin #Tobacco use Nicotine patch #UTI (urinary tract infection): Positive urinalysis. Urine culture ordered but not performed, the requested to ceftriaxone be administered after urine culture performed but it was given prior Changed over to Macrobid for 5-day course. #DVT ppx: Samantha Flores MD Charges/Coding Visit Charges Inpatient E&M: 86948 Subs Hosp L2
--- NOTE | 2022-10-15 10:45 | CASEMGMT ---
Addendum entered by Gillian Medellin 10/15/22 14:52: [facility] and [facility] is unable to accept pt for care. Received tc from Alexander at [facility], they are able to see pt. Pt aware. Addendum entered by Gillian Medellin 10/15/22 12:52: JEAN-CLAUDE HAIDER in to pt room, pt has chosen the following agencies in order [facility], [facility] and [facility]. Referrals sent to these agencies at this time. Original Note: JEAN-CLAUDE HAIDER in to pt room, pt is adamant she is not going to a facility for therapy. Pt states she lives with her son and his girlfriend, pt dtr and her boyfriend and two grandchildren. Pt does have a FWW at home and denies further homegoing DME. Patient was provided a list of [facility] providers including quality and resource use data and consistent with the patient?s preferred geographic region, medical needs, and insurance network were provided from the [employer] Guide. Pt to review and JEAN-CLAUDE HAIDER to check back on choices.
[2022-10-15] MEDS: Albuterol 2.5 MG/3 ML VIAL.NEB. INHALATION (11:05)
--- NOTE | 2022-10-15 11:12 | CASEMGMT ---
Social Work SW conferred with PT, Catalina, to discuss pt case. Catalina stated pt would benefit from SNF placement but is adamant in going home with family. Catalina stated pt informed has walker at home and two wheelchairs where family members can assist pt with whatever is needed. Catalina informed no need for SW to meet with pt as pt refusing to discuss SNF placement. Catalina discussed possible HHC for pt upon discharge. SW spoke with Gillian BERMEO CM to inform of information provided by therapy team. JEAN-CLAUDE HAIDER to speak with pt regarding HHC. WEI Godinez
[2022-10-15 12:20] LABS: Bedside Glucose 422 mg/dL (74-106)
[2022-10-15] MEDS: Rivaroxaban 10 MG Tablet PO (16:38)
[2022-10-15 17:05] LABS: Bedside Glucose 288 mg/dL (74-106)
[2022-10-15 22:45] LABS: Bedside Glucose 334 mg/dL (74-106)
[2022-10-16 02:55] VITALS: BP 118/69; PULSE 85; RESP 18; TEMP 36.7; O2SAT 96
[2022-10-16] MEDS: oxyCODONE 5 MG Tablet PO (04:48)
[2022-10-16 06:08] LABS: Absolute Lymphocyte Count 1.13 X10^3/uL (0.83-4.51); Absolute Neutrophil Count 5.1 X10^3/uL (2.0-7.7); Basophil# 0.03 X10^3/uL; Basophil% 0.4 % (0-1); Eosinophil# 0.13 X10^3/uL; Eosinophils% 1.9 % (0-5); Hematocrit 31.7 % (37-47); Hemoglobin 10.4 g/dL (12.0-15.0); Lymphocyte # 1.13 X10^3/ul (0.83-4.51); Lymphocyte % 16.6 % (19-41); Mean Corp Hgb Conc 32.8 g/dL (32-36); Mean Corpuscular Hgb 30.8 pg (27.0-32.0); Mean Corpuscular Volume 93.8 fL (81-99); Mean Platelet Vol. 10.7 fl (6.2-12.0); Monocyte# 0.46 X10^3/uL; Monocyte% 6.7 % (0-10); NRBC Flagged by Analyzer 0 % (0-5); Neutrophil # 5.06 X10^3/uL (2.7-7.7); Neutrophil % 74.3 % (47-70); Platelet Count 164 K/mm3 (150-450); RBC Distribution Width CV 12.9 % (11.6-14.6); RBC Distribution Width SD 44.1 fl (35.1-43.9); Red Blood Count 3.38 M/mm3 (4.2-5.4); White Blood Count 6.8 K/mm3 (4.4-11.0)
[2022-10-16] MEDS: Gabapentin 600 MG Tablet PO ×2 (06:32→14:29)
[2022-10-16] MEDS: Acetaminophen 500 MG Tablet 1000 MG PO ×2 (06:33→14:28)
[2022-10-16] MEDS: Insulin Lispro 100 UNIT/ML INSULN.PEN SC ×2 (06:35→11:23)
[2022-10-16 06:36] LABS: Anion Gap 3 (5-15); BUN 16 mg/dL (7-18); BUN/Creat Ratio 35.6 RATIO (10-20); Calcium,Total 8.7 mg/dL (8.5-10.1); Chloride 102 mmol/L (98-107); Creatinine, Serum 0.45 mg/dL (0.55-1.02); EST Glomerular Filtration Rate 146 mL/min (>60); Est Glom Filt Rate - Afr Amer 177 mL/min (>60); Glucose 197 mg/dL (74-106); Potassium 3.8 mmol/L (3.5-5.1); Sodium Level 137 mmol/L (136-145)
[2022-10-16 07:01] LABS: Bedside Glucose 213 mg/dL (74-106)
[2022-10-16] MEDS: Pioglitazone Hydrochloride 15 MG Tablet PO (08:09)
[2022-10-16] MEDS: Potassium Chloride Oral Tablet 20 MEQ PO (08:09)
[2022-10-16] MEDS: Senna/Docusate Sodium 1 Tablet 2 TABLET PO (08:09)
[2022-10-16] MEDS: Nitrofurantoin Macrocrystals 100 MG Capsule PO (08:10)
[2022-10-16 09:00] VITALS: BP 127/62; PULSE 86; RESP 18; TEMP 36.7; O2SAT 97
[2022-10-16 10:46] VITALS: O2SAT 92
[2022-10-16 11:02] VITALS: O2SAT 93
[2022-10-16 11:20] LABS: Bedside Glucose 345 mg/dL (74-106)
--- NOTE | 2022-10-16 11:27 | PCM.DC ---
Discharge Instructions Diet Discharge Diet: No restrictions Activity Discharge Activity: Use Walker and - (Plan for toe touch weight bearing 6 weeks with walker. Further Activity recommendations Per physical therapy and Occupational Therapy recommendations. ) Follow Up Care Test Results: Test results from this visit will be discussed in further detail at your follow-up appointment, if applicable. Discharge Plan Admission Admit Date/Time: 10/12/22 00:47 Primary Reason for Your Visit: Hip fracture Attending Provider: Odessa Flores Primary Care Provider: Roxi Ritter Consulting Providers: Parth Power ; Hipolito Mcdaniel ; Shai Garcia Instructions Patient Instructions: ED Fall Prevention Additional Instructions / Restrictions: *Please take this with you to your next doctors appointment* DISCHARGE INSTRUCTIONS PLEASE READ ?It will be importantly follow-up with Dr. Power with orthopedics within 2 weeks and will also need x-rays at that time, please call the office upon discharge to schedule this appointment and have your x-rays ordered ?You had orthopedic surgery and will need to use a walker for 6 weeks with toe-touch weightbearing and you will need assistance by at least one person for your movement and mobility as well as walking and transferring you will also have home health physical therapy set up. As was discussed prior to discharge you are at in increased risk of falls, additional sheet with instructions for fall prevention will be provided as well ?You will also be discharged with a prescription for a blood thinner, rivaroxaban, which you will take through 11/12/2022 ?You are found to have a urinary tract infection during admission, you will need to take 3 more days of antibiotic, you will be discharged with ciprofloxacin 250 mg twice daily, you can take your first dose today ? You did require oxygen during admission, this will be coordinated with you upon discharge if this is needed. Information for pulmonology will be provided, would recommend that you call to establish care with a assistant speech language pathologist in the event you need further oxygen or management of your COPD ? You will also be sent with a prescription for an albuterol inhaler as needed -Please call your primary care provider's office upon discharge to schedule a hospital follow up within 1 week. -For any concerning signs or symptoms please call 911 or proceed to the nearest emergency department Discharge Orders/Prescriptions Prescriptions: New Xarelto 10 mg Tablet 10 mg PO DINNER 28 Days Qty: 28 0RF ciprofloxacin HCl [Cipro] 250 mg tablet 250 mg PO Q12H 3 Days Qty: 6 0RF albuterol sulfate 90 mcg/actuation HFA aerosol inhaler 2 puff inhalation Q6H PRN (Reason: shortness of breath or wheezing) Qty: 8.5 0RF Continued gabapentin 400 mg capsule 600 mg PO TID metformin 500 MG tablet 1,000 mg PO BID Label Comments: diabetes potassium chloride 20 MEQ tablet,ER particles/crystals 20 meq PO DAILY pioglitazone 15 mg tablet 15 mg PO DAILY Label Comments: Take 1 tablet by mouth once daily. oxycodone-acetaminophen 5-325 mg tablet 1 tab PO TID PRN PRN (Reason: Pain) Label Comments: TAKE 1 TABLET BY MOUTH TWICE DAILY NEEDED FOR PAIN. Referrals / Follow Up: Malachi Elizabeth MD [Med Staff - Active Staff] - See Referral Note (You would been from establishing care with a assistant speech language pathologist, please call upon discharge to inquire about an appointment to establish care) Roxi Ritter MD [Primary Care Provider] - Within 1 Week Parth Power MD [Med Staff - Active Staff] - Within 2 Weeks Disposition Disposition (needs filled in before D/C Order can be placed): Home Health Service
--- NOTE | 2022-10-16 11:56 | DS.PCM_ITS ---
Providers Date of Admission: 10/12/22 Date of Discharge: 10/16/22 Primary Care Physician: Dr. Roxi Ritter MD Consultations 10/12/22 02:32 Consult: Orthopedics Routine Consulting Provider: Parth Power Reason for Consult: R FEMORAL NECK FRACTURE EMERGENT Consult: No MD Notified: Yes Date Notified: 10/12/22 Time Notified: 00:59 Method of Notification: ED Physician Initiated Reason For Visit: R INTERTROCHANTERIC HIP FRACTURE Diagnosis Discharge Diagnosis (1) Hip fracture, right: Status: Acute Code(s): S72.001A - Fracture of unspecified part of neck of right femur, initial encounter for closed fracture Plan #Right hip fracture status post ORIF 10/12 #Type 2 diabetes mellitus #Tobacco use #UTI (urinary tract infection): Medications at Discharge Home Medications metformin 500 mg tablet 1,000 mg PO BID diabetes 02/26/15 potassium chloride 20 mEq tablet,extended release(part/cryst) 20 meq PO DAILY SUPPLEMENT 12/12/18 gabapentin 400 mg capsule 600 mg PO TID pain 02/05/19 oxycodone-acetaminophen 5 mg-325 mg tablet 1 tab PO TID PRN PRN Pain 10/12/22 pioglitazone 15 mg tablet 15 mg PO DAILY diabetes 10/12/22 albuterol sulfate 90 mcg/actuation aerosol inhaler 2 puff inhalation Q6H PRN shortness of breath or wheezing #8.5 grams 10/16/22 ciprofloxacin HCl 250 mg tablet (Cipro) 250 mg PO Q12H 3 days #6 tabs 10/16/22 rivaroxaban 10 mg tablet (Xarelto) 10 mg PO DINNER 28 days #28 tabs 10/16/22 Hospital Course Operations - (Right hip ORIF IM nail complicated by distal femur and replating) Summary of Care Provided Minutes Spent on Discharge: 35 Hospital Course: 9-year-old female with history of type 2 diabetes, COPD, tobacco use, anxiety presented to [facility] 10/12/2022 after a fall. She had right- sided hip pain and x-ray demonstrated right hip fracture. Dr. Power with orthopedic surgery consulted and on 10/12 she had right hip ORIF IM nail, complicated by distal femur and replating. She worked with physical therapy and post hospital rehab was recommended but after multiple discussions she remains adamantly against this, verbalized her understanding of the risk of going home and falls and discussed present recommendations which she did acknowledge this multiple times. She will be discharged with home health. Of note during her admission she required oxygen, did not find new pulmonary infection/process, does have COPD. Will walk to assess need for home O2, will need follow-up with PCP and information will also be given for pulmonology. Additionally she was noted to have a urinary tract infection, initially on Macrobid but sensitivity came back as Klebsiella pneumonia, after reviewing sensitivities feel 3 days of Cipro would be better suited for treatment. On day of discharge she reported feeling well, was up moving around with physical therapy, no changes in her breathing, no chest pain, no complaints and is anxious to get home. Instructions provided is followed: *Please take this with you to your next doctors appointment* ?It will be importantly follow-up with Dr. Power with orthopedics within 2 weeks and will also need x-rays at that time, please call the office upon disc harge to schedule this appointment and have your x-rays ordered ?You had orthopedic surgery and will need to use a walker for 6 weeks with toe- touch weightbearing and you will need assitance by at least one person for your movement and mobility as well as walking and transferring you will also have home health physical therapy set up. ?You will also be discharged with a prescription for a blood thinner, rivaroxaban, which you will take through 11/12/2022 ?You are found to have a urinary tract infection during admission, you will need to take 3 more days of antibiotic, you will be discharged with ciprofloxacin 250 mg twice daily, you can take your first dose today ? You did require oxygen during admission, this will be coordinated with you upon discharge if this is needed. Information for pulmonology will be provided, would recommend that you call to establish care with a wildlife control agent in the event you need further oxygen or management of your COPD ? You will also be sent with a prescription for an albuterol inhaler as needed -Please call your primary care provider's office upon discharge to schedule a hospital follow up within 1 week. -For any concerning signs or symptoms please call 911 or proceed to the nearest emergency department Physical Exam Const alert and no apparent distress Constitutional Narrative: Oriented HEENT normocephalic and head/scalp atraumatic Eyes Eyes Narrative: EOM grossly intact, anicteric Neck supple Resp normal respiratory effort and clear to auscultation bilaterally Cardio regular rate and regular rhythm GI soft to palpation, non-tender and non-distended Extremity Extremity Narrative: No edema appreciated Neuro moves all extremities Neuro Narrative: No overt focal deficits appreciated Psych Psych Narrative: Cooperative Weight / BMI Weight Weight: 66.6 kg Body Mass Index (BMI) 25.2 ABG / Lab / Microbiology Data Result Diagrams: 10/16/22 05:46 10/16/22 05:46 Laboratory: Laboratory Results - last 24 hr 10/15/22 11:54: POC Glucose 422 H 10/15/22 16:36: POC Glucose 288 H 10/15/22 20:30: POC Glucose 334 H 10/16/22 05:46: WBC 6.8, RBC 3.38 L, Hgb 10.4 L, Hct 31.7 L, MCV 93.8, MCH 30.8, MCHC 32.8, RDW Std Deviation 44.1 H, RDW Coeff of Sandy 12.9, Plt Count 164, MPV 10.7, Immature Gran % (Auto) 0.100, Neut % (Auto) 74.3 H, Lymph % (Auto) 16.6 L, [place] % (Auto) 6.7, Eos % (Auto) 1.9, Baso % (Auto) 0.4, Absolute Neuts (auto) 5.1, Absolute Lymphs (auto) 1.13, Nucleated RBC % 0 10/16/22 05:46: Sodium 137, Potassium 3.8, Chloride 102, Carbon Dioxide 32.0, Anion Gap 3 L, BUN 16, Creatinine 0.45 L, Estim Creat Clear Calc 45.20, Est GFR (MDRD) Af Amer 177, Est GFR (MDRD) Non-Af 146, BUN/Creatinine Ratio 35.6 H, Glucose 197 H, Calcium 8.7 10/16/22 06:35: POC Glucose 213 H 10/16/22 11:00: POC Glucose 345 H Microbiology: Microbiology 10/12/22 Unknown Urine Catheter - Catheter Urine Culture - Final Klebsiella pneumoniae sp pneum D/C Instructions Discharge Diet: No restrictions Meaningful Use Info Meaningful Use Diagnoses (Choose all that apply): None applicable Discharge Plan Admission Admit Date/Time: 10/12/22 00:47 Primary Reason for Your Visit: Hip fracture Attending Provider: Odessa Flores Primary Care Provider: Roxi Ritter Consulting Providers: Parth Power ; Hipolito Mcdaniel ; Shai Garcia Instructions Patient Instructions: ED Fall Prevention Additional Instructions / Restrictions: *Please take this with you to your next doctors appointment* DISCHARGE INSTRUCTIONS PLEASE READ ?It will be importantly follow-up with Dr. Power with orthopedics within 2 w eeks and will also need x-rays at that time, please call the office upon discharge to schedule this appointment and have your x-rays ordered ?You had orthopedic surgery and will need to use a walker for 6 weeks with toe- touch weightbearing and you will need assistance by at least one person for your movement and mobility as well as walking and transferring you will also have home health physical therapy set up. As was discussed prior to discharge you are at in increased risk of falls, additional sheet with instructions for fall prevention will be provided as well ?You will also be discharged with a prescription for a blood thinner, rivaroxaban, which you will take through 11/12/2022 ?You are found to have a urinary tract infection during admission, you will need to take 3 more days of antibiotic, you will be discharged with ciprofloxacin 250 mg twice daily, you can take your first dose today ? You did require oxygen during admission, this will be coordinated with you upon discharge if this is needed. Information for pulmonology will be provided, would recommend that you call to establish care with a wildlife control agent in the event you need further oxygen or management of your COPD ? You will also be sent with a prescription for an albuterol inhaler as needed -Please call your primary care provider's office upon discharge to schedule a hospital follow up within 1 week. -For any concerning signs or symptoms please call 911 or proceed to the nearest emergency department Discharge Orders/Prescriptions Prescriptions: New Xarelto 10 mg Tablet 10 mg PO DINNER 28 Days Qty: 28 0RF ciprofloxacin HCl [Cipro] 250 mg tablet 250 mg PO Q12H 3 Days Qty: 6 0RF albuterol sulfate 90 mcg/actuation HFA aerosol inhaler 2 puff inhalation Q6H PRN (Reason: shortness of breath or wheezing) Qty: 8.5 0RF Continued gabapentin 400 mg capsule 600 mg PO TID metformin 500 MG tablet 1,000 mg PO BID Label Comments: diabetes potassium chloride 20 MEQ tablet,ER particles/crystals 20 meq PO DAILY pioglitazone 15 mg tablet 15 mg PO DAILY Label Comments: Take 1 tablet by mouth once daily. oxycodone-acetaminophen 5-325 mg tablet 1 tab PO TID PRN PRN (Reason: Pain) Label Comments: TAKE 1 TABLET BY MOUTH TWICE DAILY NEEDED FOR PAIN. Referrals / Follow Up: Malachi Elizabeth MD [Med Staff - Active Staff] - See Referral Note (You would been from establishing care with a wildlife control agent, please call upon discharge to inquire about an appointment to establish care) Roxi Ritter MD [Primary Care Provider] - Within 1 Week Parth Power MD [Med Staff - Active Staff] - Within 2 Weeks Disposition Disposition (needs filled in before D/C Order can be placed): Home Health Servic e Charges/Coding Visit Charges Inpatient E&M: 22107 Disch Hosp >30min
[2022-10-16 13:36] VITALS: O2SAT 82; O2SAT 92; O2SAT 94
--- NOTE | 2022-10-16 13:43 | CASEMGMT ---
Addendum entered by Gillian Medellin 10/16/22 14:15: DC instructions uploaded to [employer] and sent to N. Addendum entered by Gillian Medellin 10/16/22 14:11: TC to [facility] [place], pt has no copay for anticoagulant. Referral sent to [facility] via [employer] for oxygen at this time. Original Note: Pt qualifies for home oxygen. JEAN-CLAUDE HAIDER in to pt room, provided pt with a verbal local in network list of DME companies, pt chose [employer]. Pt states she will call her son to see if he can transport her home this evening after he gets off work at 6pm. Pt states her dtr is in the home to assist. Asked pt if this RN VITALY could speak with her dtr or son to discuss care, pt declined and states she will do this myself. Pt denies need for SNF for any s/t rehab. Pt wishes to return home.
[2022-10-16 16:38] VITALS: BP 144/70; PULSE 88; RESP 18; TEMP 37; O2SAT 96
[2022-10-16 16:40] LABS: Bedside Glucose 294 mg/dL (74-106)
== END 2022-10-16 16:40 | disposition home health service (06) | DRG 481 ==
LOC: ED 10-12 01:02 → MS3 10-12 01:53
PROVIDERS: Orthopaedic Surgery Sports Medicine; Admitting Provider Hospitalist; Emergency Provider Emergency Medicine; PCP Internal Medicine; Visit Provider Internal Medicine
PROC: 0QS606Z Reposition Right Upper Femur with Intramedullary Internal Fixation Device, Open Approach (ICD-10-PCS; CPT 27245; principal; 2022-10-12 13:00)
DX: S72.001A Fracture of unspecified part of neck of right femur, initial encounter for closed fracture (principal); N39.0 Urinary tract infection, site not specified; E11.65 Type 2 diabetes mellitus with hyperglycemia; I45.10 Unspecified right bundle-branch block; F17.200 Nicotine dependence, unspecified, uncomplicated; I44.5 Left posterior fascicular block; E78.5 Hyperlipidemia, unspecified; W19.XXXA Unspecified fall, initial encounter; Z79.84 Long term (current) use of oral hypoglycemic drugs
CPT/HCPCS: 36415; 71045; 71275; 73502; 73562; 76000; 80048; 80053; 81001; 82306; 82962; 85025; 85610; 85730; 86850; 86900; 86901; 87077; 87086; 87088; 87186; 93005; 94762; 97110; 97116; 97162; 97165; 97530; 97535; 99252; 99285; 99406; C1776; J7120; Q9967; A4216; G0463; J2405

== ENCOUNTER → 2023-01-01 | Outpatient (CLI) | payer MEDICARE, MEDICAID, SELFPAY ==
--- NOTE | 2023-01-01 08:06 | RAD_ITS ---
EXAM: XR RIGHT KNEE COMPLETE, 4 OR MORE VIEWS CLINICAL INDICATION: Pain for 6 weeks, recent surgery for broken hip. TECHNIQUE: Four or more views of the right knee. This report was created using [employer] report generation technology. COMPARISON: 12/05/2022. FINDINGS: BONES/JOINTS: Lateral plate and screw fixation of a distal femoral fracture in good alignment with callus formation at the margins. Preservation of the joint space. No sclerotic or destructive changes observed. SOFT TISSUES: Unremarkable. No soft tissue swelling or gas. No radiopaque foreign body. RAD/Knee 4 or More Views IMPRESSION: Lateral plate and screw fixation of a distal femoral fracture in good alignment with callus formation at the margins. No acute abnormality. Electronically Signed: Jose A Stubbs MD at 5:51 EDT ,
== END | disposition home or self-care (01) ==
PROVIDERS: PCP Internal Medicine; Referring Provider Anesthesiology Pain Medicine; Visit Provider Anesthesiology Pain Medicine
DX: M17.12 Unilateral primary osteoarthritis, left knee (principal)
CPT/HCPCS: 73564